=== PATIENT | male | born 1945 | race Two or more races ===

== ENCOUNTER 2020-02-04 13:45 | Outpatient (REF) | payer MEDICARE, SELFPAY ==
--- NOTE | 2020-02-04 13:51 | MR_ITS ---
EXAMINATION: MR LUMBAR SPINE WITHOUT CONTRAST CLINICAL INFORMATION: Low back pain. Pain in the right leg. Anesthesia of the skin. COMPARISON: Lumbar spine radiographs from 12/09/2019. CT abdomen and pelvis from 04/01/2018. TECHNIQUE: MRI of the lumbar spine was obtained using routine sequences without contrast. FINDINGS: Normal anatomic alignment. Moderate degenerative disc disease at T11-T12 with disc desiccation and loss of height. Mild degenerative disc disease from L3-S1 with disc desiccation. There is a small Schmorl's node in the superior endplate of L5 with surrounding marrow edema. There is also mild multilevel Modic type II discogenic endplate change. No suspicious marrow edema. Mild degenerative loss of L5 vertebral body height. Otherwise, the vertebral body heights are largely maintained. The conus medullaris terminates at the level of L1-L2. The distal spinal cord is normal in appearance. No significant abnormalities of the paraspinal musculature. Multiple right-sided peripelvic renal cysts. Otherwise, limited evaluation of the intra-abdominal structures without significant abnormalities. The abdominal aorta is of normal contour and caliber. AXIAL SPINAL LEVELS: L1-L2: Normal annular contour. There is mild bilateral facet joint arthropathy. There is no neural foraminal stenosis. There is no spinal canal stenosis. L2-L3: Normal annular contour. There is moderate bilateral facet joint arthropathy. There is no neural foraminal stenosis. There is no spinal canal stenosis. L3-L4: Mild diffuse disc bulge. There is moderate bilateral facet joint arthropathy. There is mild bilateral neural foraminal stenosis. There is no spinal canal stenosis. L4-L5: Moderate diffuse disc bulge with superimposed shallow right subarticular/foraminal protrusion. There is moderate bilateral facet joint arthropathy. There is mild to moderate bilateral neural foraminal stenosis. There is no spinal canal stenosis. L5-S1: Mild diffuse disc bulge. Mildly prominent right lateral osteophyte complex abutting the exiting L5 nerve root. There is moderate bilateral facet joint arthropathy. There is moderate right and mild left neural foraminal stenosis. There is no spinal canal stenosis. 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 Most notably, there are mild to moderate neural foraminal stenoses from L3-S1 (worst on the right at L5-S1). A right lateral osteophyte complex at L5-S1 also abuts the exiting L5 nerve root. No overt spinal canal stenosis. There is a small Schmorl's node in the superior endplate of L5 with mild surrounding marrow edema.
== END 2020-02-04 13:46 | disposition home or self-care (01) ==
LOC: HO.MRI 13:45
PROVIDERS: PCP Internal Medicine Geriatric Medicine; Visit Provider Internal Medicine Geriatric Medicine
DX: M79.604 Pain in right leg (principal); M54.5 Low back pain; R20.0 Anesthesia of skin
CPT/HCPCS: 72148

== ENCOUNTER 2020-02-08 16:47 | Outpatient (REF) | payer MEDICARE, SELFPAY ==
--- NOTE | 2020-02-08 | XR_ITS ---
EXAMINATION: XR LUMBOSACRAL SPINE WITH OBLIQUES CLINICAL INFORMATION: Low back pain COMPARISON: MRI 02/04/2020. Radiographs 12/09/2019. CT 04/01/2018. TECHNIQUE: AP, both oblique, and lateral views of the lumbar spine. Lateral view of the lumbosacral junction. FINDINGS: Normal alignment and lumbar lordosis. No fracture. Mild degenerative disc disease with small anterior endplate osteophytes as demonstrated on the MRI. Bilateral facet arthrosis at L3-L4 through L5-S1. Redemonstration of a bone island in the right sacral ala. No change. IMPRESSION: Mild multilevel degenerative disc disease and mild to moderate facet arthropathy. No acute abnormality. No change.
== END 2020-02-08 16:48 | disposition home or self-care (01) ==
LOC: HO.XRAY 16:47
PROVIDERS: PCP Internal Medicine Geriatric Medicine; Visit Provider Internal Medicine Geriatric Medicine
DX: M54.5 Low back pain (principal)
CPT/HCPCS: 72110

== ENCOUNTER → 2020-02-23 12:52 | Outpatient (REF) | payer MEDICARE, SELFPAY ==
--- NOTE | 2020-02-23 12:56 | CA_ITS ---
Transthoracic Echocardiogram Patient (Last, First, Middle): Yovani Leo, Gender: Male Date of : 1945 Age: 75 Procedure Date: 02/23/2020 Procedure Type: Transthoracic Echocardiogram Location: OP Height: 182.88 cm Weight: 92.08 kg BSA: 2.14 m2 Heart Rate: bpm BP: 118 / 62 mmHg Casino Cashier: AMILCAR Referring MD: Pamela Ramsay SUSTAINABLE LANDSCAPE ARCHITECT-[place]ney Symptoms: tacy,pvcs Conclusions: - Normal left ventricular size, thickness, and systolic function. The visually estimated ejection fraction is between 55-60%. - E/E prime ratio is between 8 and 15 consistent with indeterminate filling pressures. - Normal right ventricular cavity size and systolic function. - The left atrium is moderately dilated. - Interatrial shunt cannot be excluded by color Doppler. - No significant valvular or pericardial pathology. Findings Left Ventricle Normal left ventricular size, thickness, and systolic function. The visually estimated ejection fraction is between 55-60%. There is no evidence of regional wall motion abnormalities. Abnormal diastolic function is noted. Spectral Doppler is indicative of a pseudonormal filling pattern. E/E prime ratio is between 8 and 15 consistent with indeterminate filling pressures. Right Ventricle Normal right ventricular cavity size and systolic function. Atria The left atrium is moderately dilated. Interatrial shunt cannot be excluded by color Doppler. The right atrium is normal in size. Aortic Valve Normal aortic valve structure and function. There is no aortic valve stenosis. There is no aortic valve regurgitation. Mitral Valve Normal mitral valve structure and function. There is no mitral valve regurgitation. There is no mitral valve stenosis. Pulmonic Valve Normal pulmonic valve structure and function. There is trace pulmonic valve regurgitation. Tricuspid Valve Normal tricuspid valve structure and function. There is trace tricuspid valve regurgitation. Normal right atrial pressure. There is no evidence of pulmonary hypertension. Great Vessels There is mild dilatation of the ascending aorta. The visualized portions of the pulmonary artery and branches are normal. Venous The inferior vena cava is normal in size and collapses greater than 50% with inspiration. Pericardium/Pleural There is no evidence of pericardial effusion. Prior Study Comparison Changes noted compared to prior study. LA moderately dilated, grade 1 diastolic dysfunction present. mild dilation of ascending aorta. Measurements 2D Linear Measurements RVIDd: 2.99 RVIDd Index: 1.40 IVSd: 0.99 0.6-0.9/0.6-1.0 cm LVIDd: 5.00 3.9-5.3/4.2-5.9 cm LVIDd Index: 2.34 2.4-3.2/2.2-3.1 cm/m2 LVIDs: 3.27 2.0-3.6 cm LVPWd: 1.02 0.7-1.1 cm Ao Root: 3.30 2.1-3.5 cm LA Diam: 4.50 2.7-3.8/3.0-4.0 cm LAIDs Index: 2.10 1.5-2.3 cm/m2 LV Mass: 228.56 67-162/88-224 g LV Mass Index: 106.80 43-95/49-115 g/m2 LVOT Diam: 2.10 3.0+(-)1.3 cm 2D Systolic Function EF 4C: 65.40 >55% EF 2C: 57.80 >55% EF BiP: 63.30 >55% Mitral Valve MV Pk E: 0.64 MV PK A: 0.46 MV Decel Time: 278.00 E/A: 1.40 E'Lateral: 7.45 E'Medial: 5.71 E/E' Med: 11.10 E/E' Lat: 8.50 Aortic Valve AoV Pk Eduardo: 1.04 AoV Mn Eduardo: 0.85 AoV VTI: 0.21 AoV Pk Grad: 4.00 Aov Mn Grad: 3.00 CARMEN Cont.VTI: 3.31 LVOT LVOT Pk Eduardo: 1.13 LVOT Mn Eduardo: 0.71 LVOT VTI: 0.20 LVOT Pk Grad: 5.00 LVOT Mn Grad: 2.00 LVOT Diam: 2.10 LVOT Area: 3.46 Diastolic Function MV Pk E: 0.64 MV Pk A: 0.46 E/A: 1.40 E'Medial: 5.71 E/E' Med: 11.10 E' Laterial: 7.45 E/E' Lat: 8.50 Tricuspid Valve TR Pk Eduardo: 2.22 TR Pk Grad: 20.00 RA Press: 3.00 RVSP: 23.00 Great Vessels Aorta Ao Root-2D: 3.30 2.0-3.7 cm Ao Asc: 3.60 2.1-3.4 cm Ao Arch: 3.00 Updated in Other Vendor System with Status of Final Rohan Proctor MD electronically signed on 02/23/2020 8:10:40 PM with status of Final
== END ==
LOC: HO.CARD 12:52
PROVIDERS: PCP Internal Medicine Geriatric Medicine; Visit Provider Nurse Practitioner Family
DX: I47.1 Supraventricular tachycardia (principal); I49.3 Ventricular premature depolarization
CPT/HCPCS: 93306

== ENCOUNTER → 2020-04-24 11:26 | Outpatient (BNVA) | payer MEDICARE, SELFPAY | PROVIDERS: PCP Internal Medicine Geriatric Medicine; Visit Provider Nurse Practitioner Family | DX: R00.2 Palpitations (principal); R07.89 Other chest pain; I47.1 Supraventricular tachycardia; I49.3 Ventricular premature depolarization | CPT/HCPCS: 99212 ==

== ENCOUNTER → 2020-05-04 07:51 | Outpatient (REF) | payer MEDICARE, SELFPAY ==
--- NOTE | 2020-05-04 | NM_ITS ---
Myocardial perfusion study Indication: Supraventricular tachycardia to assess for myocardial ischemia] Technique: The patient was brought in for a Lexiscan perfusion study on 05/04/2020. Patient performed low-level exercise and was injected 0.4 mg of Lexiscan intravenously. Within a minute of injection, 30 mCi of sestamibi was given intravenously. Images were obtained using the SPECT gamma camera interlaced with the gating device. Images were obtained in supine position. Resting perfusion study was performed on 05/12/2020. Patient was administered 30 mCi of sestamibi intravenously at rest. Images were then obtained in supine position. Images obtained with and without CT attenuation. Total DLP 64 mGy-cm. Images were processed with the software and compared side to side in short axis, horizontal long axis and vertical long axis views. Findings: The stress perfusion study showed non attenuated images show normal uptake of radiotracer in all segments of LV myocardium. Attenuation corrected images show mildly reduced uptake in the apex of the LV myocardium.. The gated study shows normal LV systolic function with calculated LVEF of 69%. LV cavity is normal in size. The gated study shows normal systolic wall thickening and contraction of segments. Resting study shows non attenuated images show minimally reduced uptake in the inferior wall of the LV myocardium. Attenuation corrected images show mildly to moderately reduced uptake in the apex of the LV myocardium. Gating at rest reveals normal systolic wall motion with ejection fraction at 71%. The findings are consistent with normal myocardial perfusion. NM/NM sergio perf SPECT rest & str Impression: 1. Myocardial perfusion imaging study shows normal myocardial perfusion 2. Gated LVEF is 69% 3. Transient ischemic dilatation not present EKG is nondiagnostic for ischemia
--- NOTE | 2020-05-04 07:55 | CA_ITS ---
Acquisition Time: 2020-05-04 08:04:02 Total Exercise Time: 00:02:00 Test Indications: Dyspnea Medications: METOPROLOL OMEPRAZOLE TRAMADOL MABUTONE Protocol: LEXISCAN Max HR: 093 BPM 64% of Pred: 144 BPM Max BP: 152/090 mmHG Max Work Load: 1.0 METS Pharmacological stress test using Lexiscan while sitting and kicking his legs. Pt tolerated well, denies any anginal sx. EKG without arrhythmias, non-diagnostic for ischemia. Nuclear images to follow. Normotensive response to test. Test reviewed with Dr. Walker Referred By: Pamela Ramsay Overread By: Archie Gutierrez
== END ==
LOC: HO.CARD 07:51
PROVIDERS: PCP Internal Medicine Geriatric Medicine; Visit Provider Nurse Practitioner Family
DX: R07.89 Other chest pain (principal); I47.1 Supraventricular tachycardia
CPT/HCPCS: 78452; 93017; A9500; J0280; J2785

== ENCOUNTER → 2020-05-16 11:43 | Outpatient (BNVA) | payer MEDICARE, SELFPAY | PROVIDERS: PCP Internal Medicine Geriatric Medicine; Visit Provider Nurse Practitioner Family | DX: I47.1 Supraventricular tachycardia (principal); I49.3 Ventricular premature depolarization; R00.2 Palpitations; R07.89 Other chest pain | CPT/HCPCS: Q3014 ==

== ENCOUNTER 2020-06-21 09:09 | Outpatient (REF) | payer MEDICARE, OTHER, SELFPAY ==
--- NOTE | ~2020-06-21 | CT_ITS ---
EXAMINATION: CT ABDOMEN AND PELVIS WITHOUT CONTRAST CLINICAL INFORMATION: Dysuria and hematuria COMPARISON: Previous CT of the abdomen and pelvis March 2018 TECHNIQUE: Multidetector volumetric imaging was performed from the superior aspect of the liver through the pubic symphysis. Sagittal and coronal reformatted images were obtained on the technologist's workstation. This CT examination was performed using dose optimization techniques as appropriate, variously including the following: *Automated exposure control *Adjustment of mA and/or kV according to patient size (this includes techniques or standardized protocols for targeted exams where dose is matched to indication/reason for exam; i.e. extremities or head) *Use of iterative reconstruction technique DLP: 506 mGy-cm FINDINGS: LUNG BASES: There is a 2 mm left lower lobe nodule axial image 37 series 6. This is stable from previous exams. LIVER, GALLBLADDER, AND BILIARY TREE: The liver is normal in size, shape, and attenuation. No focal hepatic lesion or biliary ductal dilatation is present. There are gallstones in the gallbladder. PANCREAS: Unremarkable. SPLEEN: Unremarkable. ADRENAL GLANDS: Unremarkable. KIDNEYS AND URETERS: There is a 3.4 cm cyst exophytic to the upper pole of the right kidney. There is a 1 x 2 cm peripelvic cyst in the lower pole of the right kidney. This appears unchanged from previous CT March 2018. No definite stone is seen. BLADDER: There may be mild diffuse bladder wall thickening. No mass or stone is appreciated. The prostate gland is enlarged and protrudes into the base of the bladder. GASTROINTESTINAL TRACT: There is stool throughout the colon. There is mild diverticulosis of the colon. No evidence of diverticulitis is seen. The small and large bowel is unremarkable. The appendix is unremarkable. ABDOMINAL WALL: No significant hernia is appreciated. LYMPH NODES: Normal. VASCULAR: Unremarkable. PELVIC VISCERA: The prostate gland is enlarged and protrudes into the base of the bladder. Prostate gland measures 5.5 x 5.9 cm in AP and transverse dimension. OSSEOUS STRUCTURES: There are degenerative changes of the spine. There are several small sclerotic lesions in the L5 vertebral body and pelvis that are stable from old exams and probably represent bone islands. CT/CT abdomen pelvis wo con IMPRESSION: Right renal cysts. Enlarged prostate gland that protrudes into the base of the bladder. Question mild circumferential bladder wall thickening. Diverticulosis. Stool throughout the colon questionable for constipation. Gallstones.
== END 2020-06-21 09:10 | disposition home or self-care (01) ==
LOC: HO.CT 09:09
PROVIDERS: PCP Internal Medicine Geriatric Medicine; Visit Provider Nurse Practitioner Primary Care
DX: R30.0 Dysuria (principal); R31.0 Gross hematuria
CPT/HCPCS: 74176

== ENCOUNTER → 2020-07-18 14:29 | Outpatient (BNVA) | payer MEDICARE, SELFPAY | PROVIDERS: PCP Internal Medicine Geriatric Medicine; Visit Provider Urology | DX: Z13.9 Encounter for screening, unspecified (principal) | CPT/HCPCS: 81002; 99202 ==

== ENCOUNTER → 2021-01-24 10:58 | Outpatient (BNVA) | payer OTHER, SELFPAY | PROVIDERS: PCP Internal Medicine Geriatric Medicine; Referring Provider Internal Medicine Geriatric Medicine; Visit Provider Nurse Practitioner Family ==

== ENCOUNTER 2021-04-30 12:16 | Outpatient (REF) | payer OTHER, SELFPAY ==
--- NOTE | ~2021-04-30 | XR_ITS ---
EXAMINATION: XR SHOULDER, RIGHT CLINICAL INFORMATION: Pain in unspecified shoulder. Shoulder pain. COMPARISON: None TECHNIQUE: AP neutral, Grashey, axillary, transscapular radiographs of the right shoulder FINDINGS: Glenohumeral joint spacing and alignment are normal in appearance. Minimal osteophytosis of the acromioclavicular joint is noted with inferior projecting osteophytosis measuring approximately 1-2 mm. Mild sclerosis of the greater tuberosity is noted. The visualized left ribs and lung are normal in appearance. XR/XR shoulder RT min 2V IMPRESSION: *Mild focal subchondral sclerosis of the greater tuberosity which may represent reactive changes related to underlying supraspinatus component degeneration of the rotator cuff. *Minimal osteoarthritis of the acromioclavicular joint.
== END 2021-04-30 12:17 | disposition home or self-care (01) ==
LOC: HO.HOSX 12:16
PROVIDERS: Visit Provider Orthopaedic Surgery
DX: M75.41 Impingement syndrome of right shoulder (principal)
CPT/HCPCS: 20610; 73030; J1100

== ENCOUNTER → 2021-07-19 13:20 | Outpatient (BNVA) | payer OTHER, SELFPAY | PROVIDERS: PCP Internal Medicine Geriatric Medicine; Visit Provider Orthopaedic Surgery | DX: M75.41 Impingement syndrome of right shoulder (principal) | CPT/HCPCS: 20610; J1100 ==

== ENCOUNTER 2022-12-10 10:23 | Outpatient (AMB) | payer OTHER, SELFPAY ==
[2022-12-10 10:34] VITALS: BP 146/70; PULSE 53; BMI 27.5
--- NOTE | 2022-12-10 10:34 | MHC.OFFVIS ---
Intake Vital Signs 12/10/22 10:34 Height 5 ft 11 in Weight 197 lb 8.547 oz BMI 27.5 BP 146/70 H Blood Pressure Location Lt brachial Position Sitting Pulse 53 Intake Visit Reasons: Follow up abdominal pain. Intake Note: Yovani presents in office as est.patient for a f/u for abdominal pain. PT CC: pt reports having abdominal pain , GERD, diarrhea pt denies any other GI Issues Environmental Health Technologist Required: Yes Environmental Health Technologist Language: Belarusian Accompanied by: Self / Same As Patient Allergies No Known Allergies [No Known Allergies*] Allergy (Verified 12/10/22 10:34) HPI Follow up abdominal pain. HPI Details LAST VISIT: Rectal pain Patient reports occasional rectal pain when he is constipated as well as when he has diarrhea. Patient denies any melena, hematochezia, unintentional weight loss or ribbon like stools IBS (irritable bowel syndrome) Postprandial bloating, diarrhea, loose stools and occasional constipation. Will send him script for Citrucel to hopefully bulk up his stool as well as docusate sodium. Discussed with him avoiding dietary triggers, will send his stool for ova and parasite. GERD (gastroesophageal reflux disease) Patient reports symptoms of acid reflux without dyspepsia, dysphagia or odynophagia. Will send him for H pylori testing. If positive will treat empirically. If patient continues to have acid reflux will send him for upper endoscopy verbalizes understanding of instructions and is agreeable to plan of care. He was given the opportunity to ask questions all questions answered. ? Thank you for allowing me to participate in her care Plan Orders Orders H pylori Ag Stool 01/24/21 K21.9 Ova and Parasite 01/24/21 K62.89 Medications New omeprazole 20 mg PO DAILY 30 caps 2RF methylcellulose (laxative) (Citrucel) take it with full glass of water 500 mg PO DAILY 30 tabs 2RF K59.00 docusate sodium 100 mg PO BEDTIME 30 caps 3RF K59.00 TODAY'S VISIT Patient is here today for requested visit. Last seen was in 2020. Patient had similar symptoms then was started on omeprazole for acid reflux, however patient continues to have occasional acid reflux with dyspepsia without dysphagia or odynophagia. Patient is not taking Citrucel or Colace. He continues to have postprandial frequent bowel movements. No or diarrhea. Patient states that he feels like he is constipated and does not feel like he empties his bowels completely even though he has bowel move min after almost everything that he eats. Patient reports that he had cholecystectomy in July of 2021 at [facility]. However he has a prior history of frequent bowel movements postprandially and constipation. Patient states that he exercises and tries to eat healthy. Patient occasionally will have rice and beans, eats salads fruits and fish. Patient does not eat any greasy or fast food meals. Denies any nausea or vomiting. Denies melena, hematochezia, unintentional weight loss or ribbon like stools. Last colonoscopy was in March of 2015 benign polyp was found. Patient also had upper endoscopy at the same time. [facility] Medical History Palpitations PVC's (premature ventricular contractions) SVT (supraventricular tachycardia) Surgical History History of cholecystectomy Hx of colonoscopy Hx of endoscopy S/P ablation of ventricular arrhythmia (~2007) Family History Father CVD (cardiovascular disease) Mother No problems noted. Review of Systems Const Denies weight gain and Denies weight loss ENT Reports no additional complaints, Denies dysphagia and Denies odynophagia Card Reports no additional complaints Resp Reports no additional complaints GI Denies abdominal pain, Denies belching, Denies melena, Reports bloating, Denies change in bowel habits, Reports constipation, Denies dysphagia, Denies excessive flatus, Denies dyspepsia, Reports heartburn, Denies diarrhea, Reports loose stools, Denies nausea, Denies odynophagia and Denies vomiting Reports no additional complaints Musc Reports no additional complaints Neuro Reports no additional complaints Psych Reports no additional complaints Endo Reports no additional complaints Physical Exam Vital Signs: Last Vital Signs Pulse 53 12/10/22 10:34 BP 146/70 H 12/10/22 10:34 BMI result Body Mass Index 27.5 Const General: healthy appearing, no acute distress and well developed Nutritional Appearance: well nourished Orientation/consciousness: patient oriented x3 HEENT Head: Yes normal to inspection, Yes normocephalic and Yes atraumatic Face and sinus: Yes normal facial exam Mouth: Normal oral and palatal mucosa present Throat: Yes posterior oropharynx normal, Yes tonsils normal and Yes uvula midline Eyes General: appearance normal, both eyes and all related structures Neck Neck: Yes normal visual inspection, Yes full ROM and Yes trachea midline Thyroid: Thyroid normal Resp Effort & Inspection: normal respiratory effort, able to speak in complete sentences, no tracheal deviation and symmetric chest movement Auscultation: clear to auscultation bilaterally Cardio Rate: regular rate Heart sounds: S1 normal heart sound present and S2 normal heart sound present GI Inspection: Yes normal to inspection and No distended Palpation (GI): Soft to palpation, not firm, nontender and No hepatosplenomegaly present Auscultation: normal bowel sounds General: Yes no CVA tenderness Back/Spine/Pelvis Back: no CVA tenderness Skin General skin exam: elasticity normal, turgor normal and dry skin Neuro General: patient oriented x3 Psych Appearance: grossly normal Mental Status: mental status grossly normal Speech and movement: Normal speech and movement present Affect: normal affect Assessment & Plan Assessment & Plan (1) IBS (irritable bowel syndrome): Code(s): K58.9 - Irritable bowel syndrome without diarrhea Qualifiers: Irritable bowel syndrome type: with both diarrhea and constipation Qualified Code(s): K58.2 - Mixed irritable bowel syndrome Plan: Patient reports frequent bowel movements postprandially than being constipated. Patient also reports postprandial bloating occasionally. Discussed with patient low FODMAP diet. List of food recommended as well as list of food to avoid given to patient. (2) GERD (gastroesophageal reflux disease): Code(s): K21.9 - Gastro-esophageal reflux disease without esophagitis Qualifiers: Esophagitis presence: esophagitis presence not specified Qualified Code(s): K21.9 - Gastro-esophageal reflux disease without esophagitis Plan: Patient continues with heartburn, occasional dyspepsia. Will stop omeprazole and start him on Nexium. Discussed with patient avoiding dietary triggers and the late night snacking. Staying upright for minimum 3 hours after meals discussed with patient (3) Postprandial diarrhea: Code(s): K52.9 - Noninfective gastroenteritis and colitis, unspecified Plan: Postprandial frequent stools. History of cholecystectomy in 2021. Continue low-fat diet. Start Citrucel after breakfast with full glass of water and Senokot in the evening. Despite postprandial frequent stools patient does not feel like he empties completely. I will see him in 5 weeks, sooner on as needed basis. Patient is agreeable to this plan and verbalizes understanding of instructions. He was given the opportunity to ask questions and all questions answered. Thank you for allowing me to participate in his care Medications: New esomeprazole magnesium (Nexium) 40 mg PO DAILY 30 caps 5RF K21.9 - Gastro-esophageal reflux disease without esophagitis sennosides (Natural Senna Laxative) 8.6 mg PO BEDTIME 90 tabs 3RF constipation K59.00 - Constipation, unspecified Refilled methylcellulose (laxative) (Citrucel) take it with full glass of water 500 mg PO DAILY 30 tabs 2RF K59.00 - Constipation, unspecified Discontinued omeprazole Discontinued Reason: Doctor's Order 20 mg PO DAILY 30 caps 2RF Coding Level of Care Code Est Pt Level 3 (44796) Diagnoses IBS (irritable bowel syndrome) K58.2 Irritable bowel syndrome type: with both diarrhea and constipation GERD (gastroesophageal reflux disease) K21.9 Esophagitis presence: esophagitis presence not specified Postprandial diarrhea K52.9 Time Spent (min) 35 Comment 20 minutes spent with patient and additional 15 minutes spent reviewing his records
== END 2022-12-10 11:02 | disposition home or self-care (01) ==
PROVIDERS: PCP Internal Medicine Geriatric Medicine; Visit Provider Nurse Practitioner Family
DX: K58.2 Mixed irritable bowel syndrome (principal); K21.9 Gastro-esophageal reflux disease without esophagitis
CPT/HCPCS: 99213

== ENCOUNTER → 2022-12-10 10:23 | Outpatient (BNVA) | payer OTHER, SELFPAY | PROVIDERS: PCP Internal Medicine Geriatric Medicine; Visit Provider Nurse Practitioner Family ==

== ENCOUNTER 2023-01-14 11:53 | Outpatient (AMB) | payer OTHER, SELFPAY ==
--- NOTE | 2023-01-14 12:11 | A.OFFVIS_ITS ---
Intake Vital Signs 01/14/23 12:13 Height 5 ft 11 in Weight 196 lb 3.382 oz BMI 27.4 BP 147/73 H Blood Pressure Location Lt brachial Position Sitting Pulse 56 Intake Visit Reasons: 5 week follow rediscuss colonoscopy Intake Note: Yovani presents in the office as a follow up. CC: He states that he is not having any concerns today - he did have a terrible reaction to citrucel. Account Auditor Required: No Allergies methylcellulose [From Citrucel] Allergy (Mild, Verified 01/14/23 12:14) Anaphylaxis HPI 5 week follow rediscuss colonoscopy HPI Details LAST VISIT IBS (irritable bowel syndrome) Patient reports frequent bowel movements postprandially than being constipated. Patient also reports postprandial bloating occasionally. Discussed with patient low FODMAP diet. List of food recommended as well as list of food to avoid given to patient. GERD (gastroesophageal reflux disease) Patient continues with heartburn, occasional dyspepsia. Will stop omeprazole and start him on Nexium. Discussed with patient avoiding dietary triggers and the late night snacking. Staying upright for minimum 3 hours after meals discussed with patient Postprandial diarrhea Postprandial frequent stools. History of cholecystectomy in 2021. Continue low- fat diet. Start Citrucel after breakfast with full glass of water and Senokot in the evening. Despite postprandial frequent stools patient does not feel like he empties completely. I will see him in 5 weeks, sooner on as needed basis. Patient is agreeable to this plan and verbalizes understanding of instructions. He was given the opportunity to ask questions and all questions answered. TODAY'S VISIT Patient is here today for follow-up and to discuss going for colonoscopy. Patient reports to be feeling better. Try taking Citrucel, however stopped as he reports that it was not agreeing with him. Patient became short of breath for hours after taking it. Patient is taking Nexium and reports that his epigastric discomfort and abdominal pain is better. Patient is moving his bowels well. No longer has diarrhea. Occasional dyspepsia depending on what he eats. Patient denies issues with anesthesia in the past. No history of sleep apnea. Not on any anticoagulation medication. Denies any cardiac or respiratory symptoms. Patient sees freight service inspector and will get clearance prior to going for procedure. Patient had surgery in 2021 and was under anesthesia and did well. ? PFSH Medical History Palpitations SVT (supraventricular tachycardia) PVC's (premature ventricular contractions) Surgical History History of cholecystectomy Hx of endoscopy Hx of colonoscopy S/P ablation of ventricular arrhythmia (~2007) Family History Father CVD (cardiovascular disease) Mother No problems noted. Review of Systems Const Denies weight gain and Denies weight loss ENT Reports no additional complaints, Denies dysphagia and Denies odynophagia Card Reports no additional complaints Resp Reports no additional complaints GI Denies abdominal pain, Denies belching, Denies melena, Denies bloating, Denies change in bowel habits, Denies dysphagia, Denies excessive flatus, Denies dyspepsia, Denies heartburn, Denies diarrhea, Denies loose stools, Denies nausea, Denies odynophagia and Denies vomiting Reports no additional complaints Musc Reports no additional complaints Neuro Reports no additional complaints Psych Reports no additional complaints Endo Reports no additional complaints Physical Exam Vital Signs: Last Vital Signs Pulse 56 01/14/23 12:13 BP 147/73 H 01/14/23 12:13 BMI result Body Mass Index 27.4 Const General: healthy appearing, no acute distress and well developed Nutritional Appearance: well nourished Orientation/consciousness: patient oriented x3 HEENT Head: Yes normal to inspection, Yes normocephalic and Yes atraumatic Face and sinus: Yes normal facial exam Mouth: Normal oral and palatal mucosa present Throat: Yes posterior oropharynx normal, Yes tonsils normal and Yes uvula midline Eyes General: appearance normal, both eyes and all related structures Neck Neck: Yes normal visual inspection, Yes full ROM and Yes trachea midline Thyroid: Thyroid normal Resp Effort & Inspection: normal respiratory effort, able to speak in complete sentences, no tracheal deviation and symmetric chest movement Auscultation: clear to auscultation bilaterally Cardio Rate: regular rate Heart sounds: S1 normal heart sound present and S2 normal heart sound present GI Inspection: Yes normal to inspection and No distended Palpation (GI): Soft to palpation, not firm, nontender and No hepatosplenomegaly present Auscultation: normal bowel sounds General: Yes no CVA tenderness Back/Spine/Pelvis Back: no CVA tenderness Skin General skin exam: elasticity normal, turgor normal and dry skin Neuro General: patient oriented x3 Psych Appearance: grossly normal Mental Status: mental status grossly normal Speech and movement: Normal speech and movement present Affect: normal affect Attitude: cooperative Thought process: Normal thought process present Thought content: Normal thought content present Insight: Good insight present (Psych) Judgement: Good judgement present (Psych) Assessment & Plan Assessment & Plan (1) IBS (irritable bowel syndrome): Code(s): K58.9 - Irritable bowel syndrome without diarrhea Qualifiers: Irritable bowel syndrome type: with both diarrhea and constipation Qualified Code(s): K58.2 - Mixed irritable bowel syndrome Plan: Continue low FODMAP diet. (2) GERD (gastroesophageal reflux disease): Code(s): K21.9 - Gastro-esophageal reflux disease without esophagitis Qualifiers: Esophagitis presence: esophagitis presence not specified Qualified Code(s): K21.9 - Gastro-esophageal reflux disease without esophagitis Plan: Continue Nexium. Patient will be sent for upper endoscopy to rule out gastritis, esophagitis, duodenitis, gastric or peptic ulcers, H pylori, Pace's (3) Postprandial diarrhea: Code(s): K52.9 - Noninfective gastroenteritis and colitis, unspecified Plan: Patient reports that his diarrhea subsided after he started taking esomeprazole. (4) Screen for colon cancer: Code(s): Z12.11 - Encounter for screening for malignant neoplasm of colon Plan: Please call freight service inspector for clearance. Patient goes to Dr. Abel. Patient denies any issues with anesthesia in the past. Not on any anticoagulation medication. No history of sleep apnea. Patient denies any chest pain or shortness of breath. What to expect before during and after procedure discussed with patient. Clear liquid diet in good bowel prep discussed with patient. I will see him after the procedure, sooner on as needed basis. Patient is agreeable to this plan and verbalizes understanding of instructions. He was given the opportunity to ask questions and all questions answered. Thank you for allowing me to participate in his care Medications: New polyethylene glycol 3350 (Miralax) As directed by gastroenterology department at [facility] 238 grams PO ONCE 238 grams 0RF Z12.11 - Encounter for screening for malignant neoplasm of colon bisacodyl (Dulcolax (bisacodyl)) take 2 tabs at noon the day before your colonoscopy 10 mg (2 x 5 mg) PO ONCE 1 day 2 tabs 0RF Z12.11 - Encounter for screening for malignant neoplasm of colon Coding Level of Care Code Est Pt Level 4 (99993) Diagnoses Irritable bowel syndrome with both constipation and diarrhea K58.2 Irritable bowel syndrome type: with both diarrhea and constipation Gastroesophageal reflux disease, unspecified whether esophagitis present K21.9 Esophagitis presence: esophagitis presence not specified Postprandial diarrhea K52.9 Screen for colon cancer Z12.11 Time Spent (min) 35 Comment 20 minutes spent with patient and additional 15 minutes spent reviewing her records
[2023-01-14 12:13] VITALS: BP 147/73; PULSE 56; BMI 27.4
== END 2023-01-14 12:53 | disposition home or self-care (01) ==
PROVIDERS: PCP Internal Medicine Geriatric Medicine; Visit Provider Nurse Practitioner Family
DX: K58.2 Mixed irritable bowel syndrome (principal); K21.9 Gastro-esophageal reflux disease without esophagitis; Z12.11 Encounter for screening for malignant neoplasm of colon
CPT/HCPCS: 99214

== ENCOUNTER → 2023-01-14 11:53 | Outpatient (BNVA) | payer OTHER, SELFPAY | PROVIDERS: PCP Internal Medicine Geriatric Medicine; Visit Provider Nurse Practitioner Family ==

== ENCOUNTER 2023-02-10 10:34 | Outpatient (REF) | payer OTHER, SELFPAY ==
[2023-02-14 02:24] LABS: Testosterone, Total 629 ng/dL (250-1100)
== END 2023-02-10 10:35 | disposition home or self-care (01) ==
LOC: HO.LAB 10:34
PROVIDERS: PCP Internal Medicine Geriatric Medicine; Visit Provider Internal Medicine Geriatric Medicine
DX: N52.9 Male erectile dysfunction, unspecified (principal)
CPT/HCPCS: 36415; 84403

== ENCOUNTER 2023-04-15 09:22 | Day surgery (SDC) | payer OTHER, SELFPAY ==
--- NOTE | 2023-04-14 10:07 | P.CONAN_ITS ---
Documented by User: Lynette Singh NP 04/14/23 10:08 HPI - Anesthesia Eval Consult details Narrative: 78yo M for Upper Endoscopy and Colonoscopy Cardiac optimized PMFSH Active Problems Active Problems: All Active Problems (Updated 07/18/21 @ 07:57 by Peter Velásquez MD) Microscopic hematuria (Acute) Impingement syndrome of right shoulder (Acute) Palpitations (Acute) Chest tightness (Acute) SVT (supraventricular tachycardia) (Acute) PVC's (premature ventricular contractions) (Acute) Past Medical History Medical History Palpitations SVT (supraventricular tachycardia) PVC's (premature ventricular contractions) Family History Family History Father CVD (cardiovascular disease) Mother No problems noted. Surgical History Surgical History History of cholecystectomy Hx of endoscopy Hx of colonoscopy S/P ablation of ventricular arrhythmia (~2007) Social History Social History Patient Tobacco Use Status: Never used Tobacco Use of substances other than those prescribed or required for medical reasons: No Are you DNR?: No Advance Directives: No Advance Directives Information Provided: Yes Meds Allergies Allergy/AdvReac Type Severity Reaction Status Date / Time methylcellulose Allergy Mild Anaphylaxis Verified 04/15/23 09:38 [From Citrucel] Home Medications Medication Instructions Recorded Confirmed Last Taken Type nabumetone 750 mg tablet 750 mg PO BID 04/24/20 04/15/23 Unknown History tadalafil 20 mg tablet 20 mg PO DAILY PRN Erectile 04/24/20 04/15/23 Unknown History Dysfunction tramadol 50 mg tablet 50 mg PO Q12H PRN Pain 04/24/20 04/15/23 Unknown History cholecalciferol (vitamin D3) 50 50 mcg PO DAILY 01/14/23 04/15/23 Unknown History mcg (2,000 unit) tablet Assessment and Plan Assessment Anesthesia Assessment: Chart Reviewed Documented by User: Heather Mendoza MD 04/15/23 09:56 [facility] [place] Past Medical History Medical History Palpitations SVT (supraventricular tachycardia) PVC's (premature ventricular contractions) Family History Family History Father CVD (cardiovascular disease) Mother No problems noted. Family history of problems with anesthesia: No Surgical History Surgical History History of cholecystectomy Hx of endoscopy Hx of colonoscopy S/P ablation of ventricular arrhythmia (~2007) History of Problems with Anesthesia: No Social History Social History Patient Tobacco Use Status: Never used Tobacco Use of substances other than those prescribed or required for medical reasons: No Are you DNR?: No Advance Directives: No Advance Directives Information Provided: Yes Meds Allergies Allergy/AdvReac Type Severity Reaction Status Date / Time methylcellulose Allergy Mild Anaphylaxis Verified 04/15/23 09:38 [From Citrucel] Home Medications Medication Instructions Recorded Confirmed Last Taken Type nabumetone 750 mg tablet 750 mg PO BID 04/24/20 04/15/23 Unknown History tadalafil 20 mg tablet 20 mg PO DAILY PRN Erectile 04/24/20 04/15/23 Unknown History Dysfunction tramadol 50 mg tablet 50 mg PO Q12H PRN Pain 04/24/20 04/15/23 Unknown History cholecalciferol (vitamin D3) 50 50 mcg PO DAILY 01/14/23 04/15/23 Unknown History mcg (2,000 unit) tablet Exam Airway Mallampati Class: II TM Dist: >3cm Neck ROM: Full Heart: rrr Lungs: cta Assessment and Plan Assessment Anesthesia Assessment: Anesthesia Plan Discussed and Chart Reviewed Final Anesthetic Review Family History of Problems with Anesthesia: No History of Problems with Anesthesia: No NPO: Yes ASA Class: II Final Preanesthetic Review: No Changes in Pt Med Stat, Meds/Allgs Chart Reviewed, Consent Obtained/Reviewed and Anes Risks/Benef Reviewed Patient Risk: Low Procedure Risk: Intermediate Anesthetic Plan Anesthetic Plan: MAC: Disposition: Standard PACU
[2023-04-15 09:39] VITALS: BMI 28.0
--- NOTE | 2023-04-15 09:53 | MHC.SHP ---
Pre-Procedural Eval Section A Date of Service: 04/15/23 Section B Chief Complaint: IBS,gerd,gastroenteritis and colitis Relevant Family History (Specify if Yes): No Relevant Social History: None Present Medications: see Short Stay Collaborative assessment Medical History: Significant History (Fatty liver Palpitations SVT (supraventricular tachycardia) PVC's (premature ventricular contractions)) History of Previous Operations: Relevant previous surgery/procedure and date(s) ( History of cholecystectomy Hx of endoscopy Hx of colonoscopy S/P ablation of ventricular arrhythmia (~2007)) Allergies: Allergies Allergy/AdvReac Type Severity Reaction Status Date / Time methylcellulose Allergy Mild Anaphylaxis Verified 04/15/23 09:38 [From Citrucel] Review of Systems Sugical H&P ROS: Negative: Constitution, Cardiovascular, Respiratory, Neurological, Psychiatric, Hem-Onc, Allergic/Immunologic, Gastrointestinal, Genitourinary, Musculoskeletal, Integumentary, Endocrine and Eyes/Ears/Nose/Throat Exam Surgical H&P Exam: Normal: HEENT, Normal: Heart, Normal: Lungs, Normal: Extremities, Normal: Abdomen, Normal: Skin and Normal: Neurological Plan Diagnosis/Plan: Unchanged I have reviewed the history and physical and performed a pertinent physical examination on my patient. No changes have occurred unless specified. Time Spent With Patient Time: Total time managing care of this patient today ____ minutes.
[2023-04-15 09:55] VITALS: BP 153/91; PULSE 72; RESP 15; TEMP 36.6; O2SAT 98
[2023-04-15] MEDS: Lactated Ringers 1,000 ML 100 ML IVCONT (10:09)
--- NOTE | 2023-04-15 10:37 | P.OP_ITS ---
Operative Note Operative Note Date of Service: 04/15/23 Narrative: Operative Information Procedure Description: EGD, Colonoscopy Indication: GERD, colon screen Anesthesia: MAC FLEXIBLE TRANSORAL UPPER GASTROINTESTINAL ENDOSCOPY AND COLONOSCOPY PROCEDURE NOTE UPPER ENDOSCOPY Consent: Indications for the procedure and potential complications of bleeding, perforation, reaction to medications and missed diagnosis were discussed with the patient and informed consent was obtained. Instrument: Olympus GIF H 190 J mid size upper endoscope Monitoring: Vital signs and clinical assessment, continuous EKG monitoring, Pulse oximetry, Carbon Dioxide monitoring and blood pressure monitoring were done throughout the procedure. Procedure: The patient was placed in the left lateral decubitis position and pre-procedure medications were administered and a bite block was placed. The endoscope was inserted into the mouth and advanced under direct vision to the third part of duodenum. A careful inspection was made as the upper endoscope was withdrawn including a retroflexed examination of the proximal stomach; Findings and interventions are described below. Findings: Larynx:normal Esophagus: GE junction at 38 cm, diaphragm hiatus at 38 cm, erythema at GEJ, bx taken from here, distal and proximal esophagus in separate jars Stomach: Patchy erythema. Biopsies were obtained. Grade 2 flap valve on retroflexed examination of the cardia. Duodenum: Normal bulb and descending duodenum, Intervention: Biopsies as noted above COLONOSCOPY Instrument: Olympus variable stiffness ADULT scope 190L Colonoscopy Monitoring: Vital signs and clinical assessment, continuous EKG monitoring, Pulse oximetry, Carbon Dioxide monitoring and blood pressure monitoring were done throughout the procedure. Colon withdrawal time was 8 minutes. Procedure: The patient was placed in the left lateral decubitis position and pre-procedure medications were administered. After a digital rectal examination of the ano-rectum, the video colonoscope was inserted into the rectum and advanced through the colon to the cecum/TI. The colonoscope was slowly withdrawn in a retrograde panoramic fashion and the colon mucosa was carefully examined including a retroflexed view of the rectum. Findings and interventions are described below. Procedure Difficulty:moderate Findings: Terminal Ileum-not intubated Cecum:normal Ascending Colon: moderate diverticulosis Transverse Colon -normal Descending Colon: moderate diverticulosis Sigmoid Colon: severe diverticulosis Rectum: Retroflexion with small internal hemorrhoids, grade I Anorectum - normal Colon preparation: [place] Bowel Preparation Scale Right colon; 1-2 Transverse colon: 2 Left colon; 2 (0 = Unprepared colon segment with mucosa not seen due to solid stool that cannot be cleared. 1 = Portion of mucosa of the colon segment seen, but other areas of the colon segment not well seen due to staining, residual stool and/or opaque liquid. 2 = Minor amount of residual staining, small fragments of stool and/or opaque liquid, but mucosa of colon segment seen well. 3 = Entire mucosa of colon segment seen well with no residual staining, small fragments of stool or opaque liquid) Impression and Post Procedure Diagnosis: Endoscopy Findings: gastritis mild esophagitis Colonoscopy Findings: internal hemorrhoids diverticular disease Plan: Await Pathology results Repeat Colonoscopy in 5 years due to fair prep on the right or earlier if clinically indicated High fiber diet leaflet avoid straining at stool, epsom salts and sitz bath, anusol supps or cream if H pylori pos then treat Above findings were reviewed with the patient and relevant handouts were provided if indicated.
[2023-04-15 11:38] VITALS: BP 105/63; PULSE 74; RESP 16; TEMP 36.5; O2SAT 97
[2023-04-15 11:53] VITALS: BP 116/64; PULSE 56; RESP 16; TEMP 36.5; O2SAT 100
== END 2023-04-15 12:43 | disposition home or self-care (01) ==
PROVIDERS: PCP Internal Medicine Geriatric Medicine; Visit Provider Internal Medicine Gastroenterology
PROC: (CPT 43239; principal; 2023-04-15 11:50)
DX: K29.60 Other gastritis without bleeding (principal); K21.9 Gastro-esophageal reflux disease without esophagitis; Z12.11 Encounter for screening for malignant neoplasm of colon; K57.30 Diverticulosis of large intestine without perforation or abscess without bleeding; K64.0 First degree hemorrhoids; K58.2 Mixed irritable bowel syndrome; Z90.49 Acquired absence of other specified parts of digestive tract
CPT/HCPCS: 43239; G0121; 88305; 88342; J2704

== ENCOUNTER → 2023-04-15 09:22 | Outpatient (BNV) | payer OTHER, SELFPAY | PROVIDERS: PCP Internal Medicine Geriatric Medicine; Visit Provider Internal Medicine Gastroenterology | DX: Z12.11 Encounter for screening for malignant neoplasm of colon (principal); K57.90 Diverticulosis of intestine, part unspecified, without perforation or abscess without bleeding; K64.0 First degree hemorrhoids; K21.00 Gastro-esophageal reflux disease with esophagitis, without bleeding; K29.70 Gastritis, unspecified, without bleeding | CPT/HCPCS: 43239; G0121 ==

== ENCOUNTER 2023-05-07 13:55 | Outpatient (AMB) | payer OTHER, SELFPAY ==
--- NOTE | 2023-05-07 14:03 | MHC.OFFVIS ---
Intake Vital Signs 05/07/23 14:06 Height 5 ft 11 in Weight 205 lb 0.478 oz BMI 28.6 BP 149/77 H Blood Pressure Location Lt brachial Position Sitting Pulse 57 Intake Visit Reasons: s/P Double; Dr. Bhatia Intake Note: Yovani presents in the office as a follow up EGD and COLO. CC: He states that he does not have any appetite since the procedure - Sometimes he feels like he like he had an accident and states it feels wet down there. Vp Required: No Allergies No Known Allergies Allergy (Verified 05/07/23 14:29) HPI s/P Double; Dr. Bhatia HPI Details LAST VISIT IBS (irritable bowel syndrome) Continue low FODMAP diet. GERD (gastroesophageal reflux disease) Continue Nexium. Patient will be sent for upper endoscopy to rule out gastritis, esophagitis, duodenitis, gastric or peptic ulcers, H pylori, Pace's Postprandial diarrhea Patient reports that his diarrhea subsided after he started taking esomeprazole. Screen for colon cancer Please call open tenter operator for clearance. Patient goes to Dr. Abel. Patient denies any issues with anesthesia in the past. Not on any anticoagulation medication. No history of sleep apnea. Patient denies any chest pain or shortness of breath. What to expect before during and after procedure discussed with patient. Clear liquid diet in good bowel prep discussed with patient. I will see him after the procedure, sooner on as needed basis. Patient is agreeable to this plan and verbalizes understanding of instructions. He was given the opportunity to ask questions and all questions answered. ? Thank you for allowing me to participate in his care Plan Medications New polyethylene glycol 3350 (Miralax) As directed by gastroenterology department at [facility] 238 grams PO ONCE 238 grams 0RF Z12.11 bisacodyl (Dulcolax (bisacodyl)) take 2 tabs at noon the day before your colonoscopy 10 mg (2 x 5 mg) PO ONCE 1 day 2 tabs 0RF Z12.11 COLONOSCOPY Findings: Larynx:normal Esophagus: GE junction at 38 cm, diaphragm hiatus at 38 cm, erythema at GEJ, bx taken from here, distal and proximal esophagus in separate jars Stomach: Patchy erythema. Biopsies were obtained. Grade 2 flap valve on retroflexed examination of the cardia. Duodenum: Normal bulb and descending duodenum, Intervention: Biopsies as noted above Findings: Terminal Ileum-not intubated Cecum:normal Ascending Colon: moderate diverticulosis Transverse Colon -normal Descending Colon: moderate diverticulosis Sigmoid Colon: severe diverticulosis Rectum: Retroflexion with small internal hemorrhoids, grade I Anorectum - normal Colon preparation: [place] Bowel Preparation Scale Right colon; 1-2 Transverse colon: 2 Left colon; 2 (0 = Unprepared colon segment with mucosa not seen due to solid stool that cannot be cleared. 1 = Portion of mucosa of the colon segment seen, but other areas of the colon segment not well seen due to staining, residual stool and/or opaque liquid. 2 = Minor amount of residual staining, small fragments of stool and/or opaque liquid, but mucosa of colon segment seen well. 3 = Entire mucosa of colon segment seen well with no residual staining, small fragments of stool or opaque liquid) Impression and Post Procedure Diagnosis: Endoscopy Findings: gastritis mild esophagitis Colonoscopy Findings: internal hemorrhoids diverticular disease Plan: Await Pathology results Repeat Colonoscopy in 5 years due to fair prep on the right or earlier if clinically indicated High fiber diet leaflet avoid straining at stool, epsom salts and sitz bath, anusol supps or cream if H pylori pos then treat PATHOLOGY RESULTS: Diagnosis A. Stomach, biopsy: Oxyntic mucosa with mild chronic inactive inflammation; no Helicobacter organisms seen. B. GE junction, biopsy: - Pace esophagus with background mild chronic active inflammation. - No dysplasia seen. - Squamous mucosa within normal limits. C. Esophagus, distal, biopsy: Squamous epithelium within normal limits; no inflammation seen. D. Esophagus, proximal, biopsy: - Squamous epithelium within normal limits; no inflammation seen. - Oxyntic mucosa within normal limits. TODAY'S VISIT Patient is here today for follow-up and to discuss upper endoscopy and colonoscopy results. Patient was diagnosed with Pace's esophagus and diverticulosis. No polyps found, however due to suboptimal prep to right side of his colon patient will need to repeat colonoscopy in 5 years. Patient denies any ill effects from the prep, anesthesia or procedure itself. Patient reports that he continues to have occasional epigastric discomfort with occasional dyspepsia, without dysphagia or odynophagia. Patient denies melena, hematochezia, unintentional weight loss or ribbon like stools. Patient however reports that after having a bowel movement he feels like he does not empty completely and sometimes he feels wet after having a bowel movement. Patient denies any nausea or vomiting. Reports that he is feeling significantly better since the 1st time seen in the office. [facility] Medical History Palpitations SVT (supraventricular tachycardia) PVC's (premature ventricular contractions) Surgical History History of cholecystectomy Hx of endoscopy Hx of colonoscopy S/P ablation of ventricular arrhythmia (~2007) Family History Father CVD (cardiovascular disease) Mother No problems noted. Social History Patient Tobacco Use Status: Never used Tobacco Review of Systems Const Denies weight gain and Denies weight loss ENT Reports no additional complaints, Denies dysphagia and Denies odynophagia Card Reports no additional complaints Resp Reports no additional complaints GI Denies abdominal pain, Denies belching, Denies melena, Denies bloating, Denies change in bowel habits, Denies dysphagia, Denies excessive flatus, Denies dyspepsia, Denies heartburn, Denies diarrhea, Denies loose stools, Denies nausea, Denies odynophagia, Denies vomiting and Reports other (Occasional stool incontinence) Reports no additional complaints Musc Reports no additional complaints Neuro Reports no additional complaints Psych Reports no additional complaints Endo Reports no additional complaints Physical Exam Vital Signs: Last Vital Signs Pulse 57 05/07/23 14:06 BP 149/77 H 05/07/23 14:06 BMI result Body Mass Index 28.6 Const General: healthy appearing, no acute distress and well developed Nutritional Appearance: well nourished Orientation/consciousness: patient oriented x3 HEENT Head: Yes normal to inspection, Yes normocephalic and Yes atraumatic Face and sinus: Yes normal facial exam Mouth: Normal oral and palatal mucosa present Throat: Yes posterior oropharynx normal, Yes tonsils normal and Yes uvula midline Eyes General: appearance normal, both eyes and all related structures Neck Neck: Yes normal visual inspection, Yes full ROM and Yes trachea midline Thyroid: Thyroid normal Resp Effort & Inspection: normal respiratory effort, able to speak in complete sentences, no tracheal deviation and symmetric chest movement Auscultation: clear to auscultation bilaterally Cardio Rate: regular rate GI Inspection: Yes normal to inspection and No distended Palpation (GI): Soft to palpation, not firm, nontender and No hepatosplenomegaly present Auscultation: normal bowel sounds General: Yes no CVA tenderness Back/Spine/Pelvis Back: no CVA tenderness Skin General skin exam: elasticity normal, turgor normal and dry skin Neuro General: patient oriented x3 Psych Appearance: grossly normal Mental Status: mental status grossly normal Assessment & Plan Assessment & Plan (1) IBS (irritable bowel syndrome): Code(s): K58.9 - Irritable bowel syndrome without diarrhea Qualifiers: Irritable bowel syndrome type: with both diarrhea and constipation Qualified Code(s): K58.2 - Mixed irritable bowel syndrome (2) GERD (gastroesophageal reflux disease): Code(s): K21.9 - Gastro-esophageal reflux disease without esophagitis Qualifiers: Esophagitis presence: without esophagitis Qualified Code(s): K21.9 - Gastro-esophageal reflux disease without esophagitis (3) Postprandial diarrhea: Code(s): K52.9 - Noninfective gastroenteritis and colitis, unspecified (4) Pace's esophagus determined by biopsy: Code(s): K22.70 - Pace's esophagus without dysplasia Plan Patient reports that omeprazole is not helpful. Patient is not taking Nexium. Will start him on pantoprazole 40 mg every morning half an hour before breakfast. Discussed with patient avoiding dietary triggers and late night snacking. Staying upright for minimum 3 hours after meals discussed with patient. Patient will start taking Benefiber every morning. Patient was also encouraged to increase fluid intake and activity to promote better bowel motility. Script for Proctosol given to patient. High-fiber diet discussed with patient. List of food high in fiber given to patient. Patient will be sent in the office in 5 weeks, sooner on as needed basis. Patient is agreeable to this plan and verbalizes understanding of instructions. He was given the opportunity to ask questions and all questions answered. Thank you for allowing me to participate in his care Medications: New wheat dextrin (Benefiber Clear Sugar Free(dextrin)) mix into at least 4 oz water or juice before administering 1 packet PO DAILY 28 ea 5RF K59.01 - Slow transit constipation pantoprazole take one tablet half an hour before breakfast 40 mg PO DAILY 30 tabs 2RF K21.9 - Gastro-esophageal reflux disease without esophagitis hydrocortisone 2.5% (Proctosol HC) 1 appl ID BID-QID PRN 30 grams 2RF hemorrhoids K64.9 - Unspecified hemorrhoids Refilled sennosides (Natural Senna Laxative) 8.6 mg PO BEDTIME 90 tabs 3RF constipation K59.00 - Constipation, unspecified Coding Level of Care Code Est Pt Level 4 (85590) Diagnoses Irritable bowel syndrome with both constipation and diarrhea K58.2 Irritable bowel syndrome type: with both diarrhea and constipation Gastroesophageal reflux disease without esophagitis K21.9 Esophagitis presence: without esophagitis Postprandial diarrhea K52.9 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
[2023-05-07 14:06] VITALS: BP 149/77; PULSE 57; BMI 28.6
== END 2023-05-07 14:43 | disposition home or self-care (01) ==
PROVIDERS: PCP Internal Medicine Geriatric Medicine; Visit Provider Nurse Practitioner Family
DX: K58.2 Mixed irritable bowel syndrome (principal); K21.9 Gastro-esophageal reflux disease without esophagitis; K22.70 Barrett's esophagus without dysplasia
CPT/HCPCS: 99214

== ENCOUNTER → 2023-05-07 13:55 | Outpatient (BNVA) | payer OTHER, SELFPAY | PROVIDERS: PCP Internal Medicine Geriatric Medicine; Visit Provider Nurse Practitioner Family ==

== ENCOUNTER 2023-05-11 16:09 | Emergency (ER) | payer OTHER, SELFPAY ==
[2023-05-11 16:21] VITALS: BP 134/63; PULSE 61; RESP 16; TEMP 36.8; O2SAT 97; BMI 30.2
--- NOTE | 2023-05-11 16:26 | ED.GENADULT ---
HPI - General Adult General Chief complaint: General Medical Stated complaint: bilateral eyes itchy and reddened Time Seen by Provider: 05/11/23 16:46 Source: patient, RN notes reviewed and old records reviewed Mode of arrival: ambulatory History of Present Illness HPI narrative: 78-year-old male with a past medical history of palpitations, SVT, presenting to the ED complaining of dry cough, headache, rhinorrhea, and bilateral itchy/erythematous eyes with crusting x3 days. Also reports right-sided low back pain x 1 month without known injury/trauma or fall. Reports intermittent radiation down RLE. Denies wearing glasses or contacts, vision loss/change, nausea/vomiting, incontinence/retention, hematuria/dysuria, CP/SOB Related Data Home Medications Medication Instructions Recorded Confirmed nabumetone 750 mg tablet 750 mg PO BID 04/24/20 04/15/23 tadalafil 20 mg tablet 20 mg PO DAILY PRN Erectile 04/24/20 04/15/23 Dysfunction tramadol 50 mg tablet 50 mg PO Q12H PRN Pain 04/24/20 04/15/23 cholecalciferol (vitamin D3) 50 50 mcg PO DAILY 01/14/23 04/15/23 mcg (2,000 unit) tablet diclofenac sodium 1 % topical gel 2 g topical BID 05/07/23 multivitamin 1 tab PO DAILY 05/07/23 Previous Rx's Medication Instructions Recorded docusate sodium 100 mg capsule 100 mg PO BEDTIME #30 caps 01/24/21 metoprolol succinate 100 mg 100 mg PO DAILY #90 tabs 04/22/22 tablet,extended release 24 hr hydrocortisone 2.5 % topical cream 1 appl NE BID-QID PRN hemorrhoids 05/07/23 with perineal applicator #30 grams (Proctosol HC) pantoprazole 40 mg tablet,delayed 40 mg PO DAILY #30 tabs 05/07/23 release sennosides 8.6 mg tablet (Natural 8.6 mg PO BEDTIME constipation #90 05/07/23 Senna Laxative) tabs wheat dextrin 3 gram/3.5 gram oral 1 packet PO DAILY #28 ea 05/07/23 powder packet (Benefiber Clear Sugar Free(dextrin)) acetaminophen 500 mg tablet 500 mg PO Q6H PRN fever or pain 05/11/23 (Tylenol Extra Strength) #14 tabs erythromycin 5 mg/gram (0.5 %) eye 0.5 inch ophthalmic (eye) QID 7 05/11/23 ointment days #3.5 grams lidocaine 5 % topical patch 1 patch topical DAILY PRN pain #30 05/11/23 (Lidoderm) ea Allergies Allergy/AdvReac Type Severity Reaction Status Date / Time No Known Allergies Allergy Verified 05/07/23 14:29 Review of Systems Review of Systems: Constitutional: No Fever, No Chills, No Fatigue, No Malaise ENT/Mouth: No Ear Pain, + Nasal Congestion, No sore throat, + Rhinorrhea, No Swallowing Difficulty Eyes: + Eye Pain, + Swelling, + Redness, No Foreign Body, No Discharge, No Vision Changes Cardiovascular: No Chest Pain, No SOB, No Palpitations Respiratory: + Cough, No Dyspnea Gastrointestinal: No Nausea, No Vomiting, No Abdominal pain Genitourinary: No Dysuria, No Urinary Frequency, No Hematuria, No Urinary Incontinence/retention, No Flank Pain Musculoskeletal: + joint pain, No Myalgias, No Joint Swelling Skin: No Skin Lesions, No rash Neuro: No Weakness, No Loss of Consciousness, No Dizziness,+Headache Yes all other systems are reviewed and are negative Constitutional: Constitutional: Reports as per [facility] Past Medical History Attestation statement: The following information was validated with the patient. Source: old records reviewed Onset Date is defined in the Problem List Problems that require an onset date and time if occurred within 24 hrs of arrival to the ED Aortic Dissection and Rupture; Neurologic impairment; Cardiopulmonary Arrest; Endotracheal Intubation; Insertion or Replacement of Mechanical Circulatory Assist Device Medical History Palpitations SVT (supraventricular tachycardia) PVC's (premature ventricular contractions) Surgical History History of cholecystectomy Hx of endoscopy Hx of colonoscopy S/P ablation of ventricular arrhythmia (~2007) Family History Family History Father CVD (cardiovascular disease) Mother No problems noted. Social History Social History Patient Tobacco Use Status: Never used Tobacco Advance Directives: No Advance Directives Information Provided: No Physical Exam ED Vital Signs: Vital Signs - 24 hr 05/11/23 16:21 Temperature 98.3 F Pulse Rate 61 Respiratory Rate 16 Blood Pressure 134/63 Pulse Oximetry 97 Oxygen Delivery Method Room Air BMI result Body Mass Index 30.2 Const General: cooperative, healthy appearing, no acute distress, alert and awake Orientation/consciousness: patient oriented x3 Limitations: no limitations HENMT Head: Yes normal to inspection and Yes atraumatic Ears: hearing grossly normal bilaterally, external ears normal and TM's normal bilaterally General nose exam: Normal external nose present Face and sinus: Yes normal facial exam Mouth: Normal oral and palatal mucosa present and no drooling Throat: Yes tonsils normal, Yes uvula midline, No peritonsillar mass and Yes posterior oropharynx abnormal (mild erythema) Eyes General: appearance normal, both eyes and all related structures Conjunctivae: conjunctival abnormal bilateral conjunctival injection diffuse; without discharge and without subconjunctival hemorrhages EOM: EOMs intact bilaterally Direct Ophthalmoscopy: normal light reflex and no photophobia Neck Neck: Yes normal visual inspection and Yes no meningeal signs Resp Effort & Inspection: normal respiratory effort and no respiratory distress Auscultation: clear to auscultation bilaterally, no crackles, no rales, no rhonchi and no wheezes Cardio Rate: regular rate Heart sounds: S1 normal heart sound present and S2 normal heart sound present GI Inspection: Yes normal to inspection Palpation (GI): Soft to palpation, nontender, no guarding and not rigid General: Yes no CVA tenderness Back/Spine/Pelvis Other: No midline cervical/thoracic/lumbar spinous tenderness/step-off or deformity. + mild right lumbar MSK tenderness to palpation reproducing subjective complaint. No erythema/warmth Back: no CVA tenderness Skin Rashes: no rashes Wounds: no wounds Neuro Other: Strength intact throughout. No saddle anesthesia. Sensation intact to light touch. Neurovascular intact distally General: patient oriented x3, gait normal, tone normal, moves all extremities, no meningeal signs and no focal motor deficits Cranial nerves: Yes CN's II-XII intact bilaterally Gait exam (Neuro): Normal gait present Extrem General: Yes normal to inspection Course Course Course Narrative: RME: 78 yold male prsesents tot he ED for coughing, headache, and bilateral red itchy eyes. recentlly diagnosed with flu. Patient sttaes no eye pain. SARS ordered -1805--COVID/flu/RSV and rapid strep negative -UA unremarkable Results discussed with patient including worrisome signs and symptoms and strict return precautions, and when to return to the emergency department. They verbalized understanding and feel safe for discharge at this time. Medical Decision Making Medical Decision Making [facility] Narrative: 78-year-old male with a past medical history of palpitations, SVT, presenting to the ED complaining of dry cough, headache, rhinorrhea, and bilateral itchy/erythematous eyes with crusting x3 days. Also reports right-sided low back pain x 1 month without known injury/trauma or fall. On exam vital signs stable, NAD, nontoxic appearing, bilateral conjunctival injection noted. EOMs intact without entrapment or pain. No evidence of preseptal or septal cellulitis. + MSK back pain appreciated. No midline spinous tenderness or red flag symptoms. Concern for viral illness vs acute conjunctivitis vs MSK pain/strain or sciatica. Low suspicion for corneal abrasion/ulceration, pneumonia/ACS or PE or cauda equina/cord compression Plan: Viral testing, rapid strep, UA Please refer to course for remaining clinical decision making, interpretation of labs/imaging results, and discussions with consultants and/or family members. Differential Diagnosis Differential Diagnoses: The differential diagnosis associated with the presentation includes As above Lab Data [facility] Lab Attestation statement: I reviewed the patient's lab results. Labs: Lab Results 05/11/23 Range/Units 17:02 Urine Color Yellow Urine Appearance Clear Urine pH 5.5 (5.0-9.0) Ur Specific [place] 1.010 (1.005-1.025) Urine Protein Negative (Neg-Trace) mg/dL Urine Glucose (UA) Negative (Negative) mg/dL Urine Ketones Negative (Negative) mg/dL Urine Blood Negative (Negative) Urine Nitrite Negative (Negative) Ur Leukocyte Esterase Negative (Negative) Influenza Type A (PCR) NEGATIVE (Negative) Influenza Type B (PCR) NEGATIVE (Negative) RSV RNA Qual (PCR) NEGATIVE (Negative) SARS-CoV-2 RNA (RT-PCR) NEGATIVE (Negative) S. pyogenes GrpA JOSE DAVID Negative (Negative) External Record Review External record reviewed: Inpatient record, Office record, Outpatient record, Prior outpatient labs, Prior outpatient radiology, Primary care record and Outside ED record Tests considered The following testing was considered but not selected: As above Prescription Management I considered prescription management with: Pain Medication Discharge Plan Discharge Clinical Impression: Conjunctivitis, Back pain Patient Disposition: Home, Self-Care Instructions: Acute Low Back Pain (ED), Conjunctivitis (ED) Additional Instructions: You tested negative for COVID, flu, RSV and strep throat Please use antibiotic eye ointment as prescribed Take Tylenol and use Lidoderm patches for back pain Follow-up with her doctor If symptoms persist or worsen return to the emergency department If symptoms persist or worsen, pain becomes unbearable, you developed urinary retention or incontinence, or weakness return to the ED Prescriptions: New erythromycin 5 mg/gram (0.5 %) ointment 0.5 inch ophthalmic (eye) QID 7 Days Qty: 3.5 0RF acetaminophen [Tylenol Extra Strength] 500 mg tablet 500 mg PO Q6H PRN (Reason: fever or pain) Qty: 14 0RF lidocaine [Lidoderm] 5 % adhesive patch,medicated 1 patch topical DAILY MDD remove after 12 hours PRN (Reason: pain) Qty: 30 0RF Rx Instructions: leave on most painful area for up to 12 hrs No Action metoprolol succinate 100 mg tablet extended release 24 hr 100 mg PO DAILY Qty: 90 0RF Rx Instructions: Overdue for appt. Please call [phone] to schedule appt for 2022 so we can continue refilling future refills. tramadol 50 mg tablet 50 mg PO Q12H PRN (Reason: Pain) nabumetone 750 mg tablet 750 mg PO BID tadalafil 20 mg tablet 20 mg PO DAILY PRN (Reason: Erectile Dysfunction) docusate sodium 100 mg capsule 100 mg PO BEDTIME Qty: 30 3RF multivitamin Tablet 1 tab PO DAILY diclofenac sodium 1 % gel 2 g topical BID Benefiber Clear SF (dextrin) 3 gram/3.5 gram powder in packet 1 packet PO DAILY Qty: 28 5RF Rx Instructions: mix into at least 4 oz water or juice before administering pantoprazole 40 mg tablet,delayed release (DR/EC) 40 mg PO DAILY Qty: 30 2RF Rx Instructions: take one tablet half an hour before breakfast hydrocortisone [Proctosol HC] 2.5 % cream with perineal applicator 1 appl NE BID-QID PRN (Reason: hemorrhoids) Qty: 30 2RF sennosides [Natural Senna Laxative] 8.6 mg tablet 8.6 mg PO BEDTIME Qty: 90 3RF cholecalciferol (vitamin D3) 50 mcg (2,000 unit) tablet 50 mcg PO DAILY Referrals: Name,MD Amado [Primary Care Provider] - 3 days
== END 2023-05-11 18:52 | disposition home or self-care (01) ==
PROVIDERS: Emergency Provider Student in an Organized Health Care Education/Training Program; PCP Internal Medicine Geriatric Medicine
DX: M54.50 Low back pain, unspecified (principal); H10.9 Unspecified conjunctivitis; R05.9 Cough, unspecified; R51.9 Headache, unspecified; J34.89 Other specified disorders of nose and nasal sinuses; Z11.52 Encounter for screening for COVID-19; Z20.828 Contact with and (suspected) exposure to other viral communicable diseases
CPT/HCPCS: 0241U; 81003; 87651; 99282; 99283

== ENCOUNTER 2023-05-21 22:28 | Emergency (ER) | payer OTHER, SELFPAY ==
--- NOTE | ~2023-05-21 | XR_ITS ---
EXAMINATION: XR CHEST CLINICAL INFORMATION: Chest pain. COMPARISON: 05/24/2016. TECHNIQUE: Frontal view of the chest was obtained. FINDINGS: The cardiomediastinal silhouette is stable. A lingular calcification is again seen. Lungs are otherwise clear. There are no significant pleural effusions. The bony structures and soft tissues are unremarkable. XR/XR chest 1V IMPRESSION: No evidence for acute disease.
--- NOTE | 2023-05-21 22:29 | ECG_ITS ---
Test Reason : CHEST PAIN Blood Pressure : / mmHG Vent. Rate : 072 BPM Atrial Rate : 072 BPM P-R Int : 190 ms QRS Dur : 090 ms QT Int : 362 ms P-R-T Axes : 080 -15 045 degrees QTc Int : 396 ms Sinus rhythm with Premature atrial complexes Otherwise normal ECG When compared with ECG of 24-MAY-2016 07:56, Premature atrial complexes are now Present Referred By: Generic ED Physician Electronically Signed By:LILIANA WEBSTER
[2023-05-21 22:37] VITALS: BP 160/73; PULSE 73; RESP 18; TEMP 36.8; O2SAT 97; BMI 29.7
--- NOTE | 2023-05-21 22:41 | MHC.EDTECH ---
From triage patient was taken directly to ED21 where labs would be done.
[2023-05-21 22:56] LABS: MANUAL DIFF FLAG NO
[2023-05-21 22:57] LABS: Basophils Percent Auto 0.6 % (0-2); Eosinophils Absolute Auto 0.1 X10*3/uL (0.0-0.4); Hematocrit 42.1 % (42.0-52.0); Hemoglobin 13.9 g/dl (14.0-18.0); Imm Gran Abs Auto 0.08 X10*3/uL (0.00-0.03); Imm Gran Pct Auto 1.7 % (0.0-0.4); Lymphocytes Absolute Auto 1.5 X10*3/uL (1.2-4.9); Mean Corpuscular Hemoglobin 28.8 pg (27.0-33.0); Mean Corpuscular Volume 87.2 fL (80.0-98.0); Mean Platelet Volume 9.5 fL (9.4-12.4); Monocytes Absolute Auto 0.5 X10*3/uL (0.1-1.2); Monocytes Percent Auto 9.8 % (2-11); Neutrophils Absolute Auto 2.7 x10*3/uL (2.0-8.3); Neutrophils Percent Auto 55.9 % (45-73); Platelet Count 182 X10*3/uL (160-400); Red Blood Count 4.83 X10*6/uL (4.60-5.80); Red Cell Distribution Width 13.9 % (11.0-16.0); White Blood Count 4.8 X10*3/uL (4.8-10.8)
[2023-05-21 23:15] LABS: Anion Gap 12 (12-20); Blood Urea Nitrogen 14 mg/dL (9-16); Calcium 9.9 mg/dL (8.4-10.2); Carbon Dioxide 24 mmol/L (22-29); Chloride 105 mmol/L (96-108); Creatinine Clr Calc Pharmacy 58.7; Estimated Glomerular Filt Rate 58; Glucose Random 108 mg/dL (60-115); Sodium 137 mmol/L (135-145)
--- NOTE | 2023-05-21 23:17 | ED.CHESTPAIN ---
HPI - Chest Pain General Chief Complaint: Chest Pain Stated Complaint: chest pain Time Seen by Provider: 05/21/23 23:17 Source: patient Mode of arrival: ambulatory Limitations: no limitations History of Present Illness HPI narrative: Patient [age] years old with medical history of symptomatic PVCs, atrial tachycardia, remote RVOT ablation in 2007 on metoprolol 100 mg daily comes here for chest pain started 1500 which is localized mid sternum nonradiating with mild shortness of breath saturating 97% at room air pain comes and goes lasting for 20-30 minutes then ease off never had similar pain in the past with palpitation patient has a Holter monitor which was removed yesterday Related Data Home Medications Medication Instructions Recorded Confirmed nabumetone 750 mg tablet 750 mg PO BID 04/24/20 04/15/23 tadalafil 20 mg tablet 20 mg PO DAILY PRN Erectile 04/24/20 04/15/23 Dysfunction tramadol 50 mg tablet 50 mg PO Q12H PRN Pain 04/24/20 04/15/23 cholecalciferol (vitamin D3) 50 50 mcg PO DAILY 01/14/23 04/15/23 mcg (2,000 unit) tablet diclofenac sodium 1 % topical gel 2 g topical BID 05/07/23 multivitamin 1 tab PO DAILY 05/07/23 Previous Rx's Medication Instructions Recorded docusate sodium 100 mg capsule 100 mg PO BEDTIME #30 caps 01/24/21 metoprolol succinate 100 mg 100 mg PO DAILY #90 tabs 04/22/22 tablet,extended release 24 hr hydrocortisone 2.5 % topical cream 1 appl [place] BID-QID PRN hemorrhoids 05/07/23 with perineal applicator #30 grams (Proctosol HC) pantoprazole 40 mg tablet,delayed 40 mg PO DAILY #30 tabs 05/07/23 release sennosides 8.6 mg tablet (Natural 8.6 mg PO BEDTIME constipation #90 05/07/23 Senna Laxative) tabs wheat dextrin 3 gram/3.5 gram oral 1 packet PO DAILY #28 ea 05/07/23 powder packet (Benefiber Clear Sugar Free(dextrin)) acetaminophen 500 mg tablet 500 mg PO Q6H PRN fever or pain 05/11/23 (Tylenol Extra Strength) #14 tabs erythromycin 5 mg/gram (0.5 %) eye 0.5 inch ophthalmic (eye) QID 7 05/11/23 ointment days #3.5 grams lidocaine 5 % topical patch 1 patch topical DAILY PRN pain #30 05/11/23 (Lidoderm) ea Allergies Allergy/AdvReac Type Severity Reaction Status Date / Time No Known Allergies Allergy Verified 05/21/23 22:36 Review of Systems Review of Systems: Yes all other systems are reviewed and are negative PMFSH Past Medical History Onset Date is defined in the Problem List Problems that require an onset date and time if occurred within 24 hrs of arrival to the ED Aortic Dissection and Rupture; Neurologic impairment; Cardiopulmonary Arrest; Endotracheal Intubation; Insertion or Replacement of Mechanical Circulatory Assist Device Medical History Palpitations SVT (supraventricular tachycardia) PVC's (premature ventricular contractions) Surgical History History of cholecystectomy Hx of endoscopy Hx of colonoscopy S/P ablation of ventricular arrhythmia (~2007) Family History Family History Father CVD (cardiovascular disease) Mother No problems noted. Social History Social History Patient Tobacco Use Status: Never used Tobacco Smoked in Last 30 Days: No Advance Directives: No Advance Directives Information Provided: No Physical Exam Vital Signs: Vital Signs: Last Vital Signs Temp 97.9 F 05/21/23 23:57 Pulse 65 05/21/23 23:57 Resp 20 05/21/23 23:57 BP 128/64 05/21/23 23:57 Pulse Ox 95 05/21/23 23:57 O2 Del Method Room Air 05/21/23 23:57 BMI result Body Mass Index 29.7 Appearance: Alert. Oriented X3. No acute distress. Eyes: No pallor or icterus ENT: Pharynx normal. Oral Mucosa moist Neck: Normal inspection. Neck supple. CVS: Normal heart rate and rhythm. Pulses normal. No murmur rub or gallop local tenderness in mid sternum Respiratory: No respiratory distress. Equal air entry bilateral, no wheezing/rales/rhonchi Abdomen: Soft and nontender. Bowel sounds are present, no mass palpable, no CVA tenderness Skin: Skin warm and dry. Normal skin color. Normal skin turgor. Extremities: No lower extremity edema. No calf tenderness Neuro: Oriented X 3. No motor deficit. Medications Administered Discontinued Medications Generic Name Dose Route Start Last Admin Trade Name Tamara PRN Reason Stop Dose Admin Aspirin 162 mg 05/21/23 23:26 05/21/23 23:31 Aspirin Enteric Coated 81 Mg Tablet.Dr WRIGHT 05/21/23 23:27 162 mg ONCE ONE Administration Nitroglycerin 1 inch 05/21/23 23:26 05/21/23 23:30 Nitroglycerin 2 % Oint 1 Gm Packet TRANSDERMA 05/21/23 23:27 1 inch ONCE ONE Administration Medical Decision Making Medical Decision Making [facility] Narrative: Pain patient with no known coronary artery disease status post ablation in 2007 for PVCs, previous stress test and echo in 2019 were negative patient been having pain since 1500 today initial troponin and EKG were negative will repeat troponin in 2 hours to see any delta change patient felt better after aspirin and nitro paste patient signed out Dr. Milner will check the repeat troponin will also check D-dimer and BNP Differential Diagnosis Differential Diagnoses: The differential diagnosis associated with the presentation includes ACS/musculoskeletal pain Lab Data [facility] Lab Attestation statement: I reviewed the patient's lab results. 05/21/23 22:52 05/21/23 22:52 Labs: Lab Results 05/21/23 Range/Units 22:52 WBC 4.8 (4.8-10.8) X10*3/uL RBC 4.83 (4.60-5.80) X10*6/uL Hgb 13.9 L (14.0-18.0) g/dl Hct 42.1 (42.0-52.0) % MCV 87.2 (80.0-98.0) fL MCH 28.8 (27.0-33.0) pg MCHC 33.0 (31.0-36.0) g/dl RDW 13.9 (11.0-16.0) % Plt Count 182 (160-400) X10*3/uL MPV 9.5 (9.4-12.4) fL Immature Gran % (Auto) 1.7 H (0.0-0.4) % Neut % (Auto) 55.9 (45-73) % Lymph % (Auto) 31.0 (20-40) % Owen % (Auto) 9.8 (2-11) % Eos % (Auto) 1.0 (0-4) % Baso % (Auto) 0.6 (0-2) % Lymph # (Auto) 1.5 (1.2-4.9) X10*3/uL Owen # (Auto) 0.5 (0.1-1.2) X10*3/uL Eos # (Auto) 0.1 (0.0-0.4) X10*3/uL Baso # (Auto) 0.0 (0.0-0.2) X10*3/uL Abs Immat Gran (auto) 0.08 H (0.00-0.03) X10*3/uL Absolute Neuts (auto) 2.7 (2.0-8.3) x10*3/uL Absolute Nucleated RBC 0.000 (0.0-0.012) X10*3/uL Nucleated RBC % (auto) 0.0 (0.0-0.2) /100WBC Sodium 137 (135-145) mmol/L Potassium 4.0 (3.3-5.1) mmol/L Chloride 105 (96-108) mmol/L Carbon Dioxide 24 (22-29) mmol/L Anion Gap 12 (12-20) BUN 14 (9-16) mg/dL Creatinine 1.21 (0.5-1.4) mg/dL Estim Creat Clear Calc 58.7 Estimated GFR 58 Random Glucose 108 (60-115) mg/dL Calcium 9.9 (8.4-10.2) mg/dL Troponin I High Sens < 2.7 (<3.5-35.0) ng/L Independent Interpretation I performed an independent interpretation of an: EKG Interpretation: Sinus rhythm with PACs heart rate 72 beats per minute no acute ST wave changes no acute ischemia External Record Review External record reviewed: Inpatient record and Prior outpatient labs Discharge Plan Discharge Clinical Impression: Chest pain Patient Disposition: Still a Patient Prescriptions: No Action metoprolol succinate 100 mg tablet extended release 24 hr 100 mg PO DAILY Qty: 90 0RF Rx Instructions: Overdue for appt. Please call [phone] to schedule appt for 2022 so we can continue refilling future refills. erythromycin 5 mg/gram (0.5 %) ointment 0.5 inch ophthalmic (eye) QID 7 Days Qty: 3.5 0RF acetaminophen [Tylenol Extra Strength] 500 mg tablet 500 mg PO Q6H PRN (Reason: fever or pain) Qty: 14 0RF lidocaine [Lidoderm] 5 % adhesive patch,medicated 1 patch topical DAILY MDD remove after 12 hours PRN (Reason: pain) Qty: 30 0RF Rx Instructions: leave on most painful area for up to 12 hrs tramadol 50 mg tablet 50 mg PO Q12H PRN (Reason: Pain) nabumetone 750 mg tablet 750 mg PO BID tadalafil 20 mg tablet 20 mg PO DAILY PRN (Reason: Erectile Dysfunction) docusate sodium 100 mg capsule 100 mg PO BEDTIME Qty: 30 3RF multivitamin Tablet 1 tab PO DAILY diclofenac sodium 1 % gel 2 g topical BID Benefiber Clear SF (dextrin) 3 gram/3.5 gram powder in packet 1 packet PO DAILY Qty: 28 5RF Rx Instructions: mix into at least 4 oz water or juice before administering pantoprazole 40 mg tablet,delayed release (DR/EC) 40 mg PO DAILY Qty: 30 2RF Rx Instructions: take one tablet half an hour before breakfast hydrocortisone [Proctosol HC] 2.5 % cream with perineal applicator 1 appl [place] BID-QID PRN (Reason: hemorrhoids) Qty: 30 2RF sennosides [Natural Senna Laxative] 8.6 mg tablet 8.6 mg PO BEDTIME Qty: 90 3RF cholecalciferol (vitamin D3) 50 mcg (2,000 unit) tablet 50 mcg PO DAILY
[2023-05-21 23:30] LABS: Troponin-I High Sensitivity < 2.7 ng/L (<3.5-35.0)
[2023-05-21] MEDS: Nitroglycerin 2 % Oint 1 GM Packet 1 INCH TRANSDERMA (23:30)
[2023-05-21 23:31] VITALS: BP 133/66; PULSE 68; RESP 19; O2SAT 94
[2023-05-21] MEDS: Aspirin Enteric Coated 81 MG TABLET.DR 162 MG PO (23:31)
[2023-05-21 23:57] VITALS: BP 128/64; PULSE 65; RESP 20; TEMP 36.6; O2SAT 95
[2023-05-22 00:49] LABS: Prothrombin Time 11.8 SEC (11.1-13.3)
[2023-05-22 00:51] LABS: D Dimer High Sensitivity 299 NG/ML
[2023-05-22 00:53] LABS: B Type Natriuretic Peptide 53 pg/mL (<100)
[2023-05-22 01:26] LABS: Troponin-I High Sensitivity < 2.7 ng/L (<3.5-35.0)
[2023-05-22 01:59] VITALS: BP 95/56; PULSE 64; RESP 20; TEMP 36.5; O2SAT 95
[2023-05-22 04:14] VITALS: BP 102/57; PULSE 69; RESP 16; O2SAT 96
[2023-05-22 07:49] VITALS: PULSE 66; RESP 18; O2SAT 95
[2023-05-22 07:50] VITALS: BP 95/57
--- NOTE | 2023-05-22 08:15 | PC.NURSE ---
Alert and oriented, ambulating with steady gait to bathroom, denies chest pain or dizziness. Discharge plan reviewed with patient who verbalized understanding to follow up with doll surgeon.
== END 2023-05-22 08:20 | disposition home or self-care (01) ==
PROVIDERS: Emergency Provider Internal Medicine; PCP Internal Medicine Geriatric Medicine
DX: R07.9 Chest pain, unspecified (principal); R06.02 Shortness of breath; Z79.899 Other long term (current) drug therapy
CPT/HCPCS: 36415; 71045; 80048; 83880; 84484; 85025; 85379; 85610; 93005; 99284; 99285

== ENCOUNTER → 2023-05-21 22:29 | Outpatient (BNV) | payer OTHER, SELFPAY | PROVIDERS: Emergency Provider Internal Medicine; PCP Internal Medicine Geriatric Medicine; Visit Provider Internal Medicine | DX: I49.1 Atrial premature depolarization (principal) | CPT/HCPCS: 93010 ==

== ENCOUNTER 2023-06-04 19:35 | Emergency (ER) | payer OTHER, SELFPAY ==
--- NOTE | ~2023-06-04 | XR_ITS ---
EXAMINATION: XR RIBS, RIGHT CLINICAL INFORMATION: Right-sided obtained in hard crack. COMPARISON: Chest 05/22/2023 TECHNIQUE: 3 views of the right ribs were obtained. Chest PA 1 view FINDINGS: Lungs are clear. No consolidation, pneumothorax, or pleural effusion. There is lingular calcification similar to previous several exams dating to 05/24/2016. The cardiomediastinal silhouette and pulmonary vasculature are normal. No gross bony abnormality seen. Multiple views of right ribs with a marker placed along the lower lateral chest reveals no visible rib fracture or bony abnormality. XR/XR ribs RT min 3V w CXR1V IMPRESSION: 1. Unremarkable chest exam. 2. No visible right rib fracture seen. There is a lingular calcification unchanged to previous exams dating to 05/24/2016.
[2023-06-04 19:48] VITALS: BP 148/72; PULSE 69; RESP 16; TEMP 37.2; O2SAT 97; BMI 30.2
--- NOTE | 2023-06-04 19:54 | ED.GENADULT ---
HPI - General Adult General Chief complaint: Fall Stated complaint: Rib pain/inj Time Seen by Provider: 06/04/23 20:33 Source: patient Mode of arrival: ambulatory Limitations: no limitations History of Present Illness HPI narrative: 78-year-old male presents to emergency department with complaints of right-sided rib pain for the last 1 and half weeks. He reports that he was cleaning his truck when he leaned over to reach for something and heard a ?crack? and felt pain on the right side of the ribs. He reports he has been having pain since but the pain has worsened today. He denies running any shortness of breath, cough, fevers, chills, chest pain, or worsening pain with inspiration. pertinent positives and negatives discussed in HPI Related Data Home Medications Medication Instructions Recorded Confirmed nabumetone 750 mg tablet 750 mg PO BID 04/24/20 04/15/23 tadalafil 20 mg tablet 20 mg PO DAILY PRN Erectile 04/24/20 04/15/23 Dysfunction tramadol 50 mg tablet 50 mg PO Q12H PRN Pain 04/24/20 04/15/23 cholecalciferol (vitamin D3) 50 50 mcg PO DAILY 01/14/23 04/15/23 mcg (2,000 unit) tablet diclofenac sodium 1 % topical gel 2 g topical BID 05/07/23 multivitamin 1 tab PO DAILY 05/07/23 Previous Rx's Medication Instructions Recorded docusate sodium 100 mg capsule 100 mg PO BEDTIME #30 caps 01/24/21 metoprolol succinate 100 mg 100 mg PO DAILY #90 tabs 04/22/22 tablet,extended release 24 hr hydrocortisone 2.5 % topical cream 1 appl [place] BID-QID PRN hemorrhoids 05/07/23 with perineal applicator #30 grams (Proctosol HC) pantoprazole 40 mg tablet,delayed 40 mg PO DAILY #30 tabs 05/07/23 release sennosides 8.6 mg tablet (Natural 8.6 mg PO BEDTIME constipation #90 05/07/23 Senna Laxative) tabs wheat dextrin 3 gram/3.5 gram oral 1 packet PO DAILY #28 ea 05/07/23 powder packet (Benefiber Clear Sugar Free(dextrin)) acetaminophen 500 mg tablet 500 mg PO Q6H PRN fever or pain 05/11/23 (Tylenol Extra Strength) #14 tabs erythromycin 5 mg/gram (0.5 %) eye 0.5 inch ophthalmic (eye) QID 7 05/11/23 ointment days #3.5 grams lidocaine 5 % topical patch 1 patch topical DAILY PRN pain #30 05/11/23 (Lidoderm) ea Allergies Allergy/AdvReac Type Severity Reaction Status Date / Time No Known Allergies Allergy Verified 06/04/23 19:48 Review of Systems Review of Systems: Yes all other systems are reviewed and are negative FOR[facility]LY [facility], [facility] Past Medical History Medical History Palpitations SVT (supraventricular tachycardia) PVC's (premature ventricular contractions) Surgical History History of cholecystectomy Hx of endoscopy Hx of colonoscopy S/P ablation of ventricular arrhythmia (~2007) Family History Family History Father CVD (cardiovascular disease) Mother No problems noted. Social History Social History Patient Tobacco Use Status: Never used Tobacco Advance Directives: No Advance Directives Information Provided: No Physical Exam ED Vital Signs: Vital Signs - 24 hr 06/04/23 19:48 06/04/23 21:24 Temperature 98.9 F 97.8 F Pulse Rate 69 65 Respiratory Rate 16 18 Blood Pressure 148/72 H 132/68 Pulse Oximetry 97 97 Oxygen Delivery Method Room Air Room Air BMI result Body Mass Index 30.2 Nursing notes and vital signs reviewed. GENERAL APPEARANCE: A&0 x 4, generally well appearing, no acute distress HENMT: Normal to inspection, atraumatic, face symmetrical. Normal external ears, nose, and oropharynx clear. EYE: PERRLA, EOM intact, structures appear normal NECK: Supple without lymphadenopathy. No stiffness or restricted ROM. CHEST: Normal to inspection HEART: Normal rate and regular rhythm, normal S1/S2, no M/R/G LUNGS: LS CTA, moving air well. Able to speak in complete sentences. No crackles, wheezes, or rhonchi auscultated ABDOMEN: Soft, nontender, nondistended. Normal bowel sounds noted BACK: No CVAT, no obvious deformity EXTREMITIES: Moving all extremities without difficulty. No cyanosis, clubbing, or edema. Normal capillary refill. NEUROLOGICAL: Alert and oriented, moving all 4 extremities with equal strength. CN not formally tested but appearing grossly intact. Observed to ambulate with normal gait. Cognition normal SKIN: Warm and dry without any lesions, rash, or visible sores PSYCH: Cooperative, normal affect, normal thought process Course Course Course Narrative: RME: 78 yold jelena presents to the ED for Right sided lower rib pain after falling unto right chest while cleaning his truck 2 weeks ago. patient denies any head trauma. rib/chest xray ordered Medical Decision Making Medical Decision Making MDM Narrative: Old records reviewed for previous imaging, lab studies, ECGs, and notes. Patient was assessed the emergency department with no acute distress or toxicity noted. Lung sounds CTA on assessment and chest x-ray negative for acute fractures or infection per my interpretation. Patient's symptoms are consistent with a contusion of the ribs with low suspicion for fracture, dislocation, pneumonia, pneumothorax. Patient is safe for discharge at this time with plan for [id number] Tylenol and/or NSAID such as ibuprofen or naproxen for fever/discomfort with dosing as per packaging in addition to heat or ice. HPI, PE, diagnostics, and plan discussed with patient and family with no unanswered questions at this time. Strict return precautions given to return to the emergency department with new, worsening, or concerning emergent symptoms. Recommended to follow-up with there primary care provider in 24-48 hours for further treatment and management. Differential Diagnosis Differential Diagnoses: The differential diagnosis associated with the presentation includes But not limited to fracture, dislocation, contusion, pneumonia, pneumothorax, ACS, PE, sepsis, malignancy Discharge Plan Discharge Clinical Impression: Contusion of rib Patient Disposition: Home, Self-Care Instructions: Rib Contusion (ED) Additional Instructions: Your seen in the emergency department for concerns of rib pain. Your Xray showed not fractured or displaced ribs. You are safe for discharge at this time with plan for management of fever or discomfort with [id number] Tylenol and/or NSAID such as ibuprofen or naproxen with dosing as per packaging. Please return to the emergency department with new, worsening, or concerning emergent symptoms. Recommended to follow-up with your primary care provider in 24-48 hours for further treatment and management. Thank you for choosing [facility]. Prescriptions: No Action metoprolol succinate 100 mg tablet extended release 24 hr 100 mg PO DAILY Qty: 90 0RF Rx Instructions: Overdue for appt. Please call [phone] to schedule appt for 2022 so we can continue refilling future refills. erythromycin 5 mg/gram (0.5 %) ointment 0.5 inch ophthalmic (eye) QID 7 Days Qty: 3.5 0RF acetaminophen [Tylenol Extra Strength] 500 mg tablet 500 mg PO Q6H PRN (Reason: fever or pain) Qty: 14 0RF lidocaine [Lidoderm] 5 % adhesive patch,medicated 1 patch topical DAILY MDD remove after 12 hours PRN (Reason: pain) Qty: 30 0RF Rx Instructions: leave on most painful area for up to 12 hrs tramadol 50 mg tablet 50 mg PO Q12H PRN (Reason: Pain) nabumetone 750 mg tablet 750 mg PO BID tadalafil 20 mg tablet 20 mg PO DAILY PRN (Reason: Erectile Dysfunction) docusate sodium 100 mg capsule 100 mg PO BEDTIME Qty: 30 3RF multivitamin Tablet 1 tab PO DAILY diclofenac sodium 1 % gel 2 g topical BID Benefiber Clear SF (dextrin) 3 gram/3.5 gram powder in packet 1 packet PO DAILY Qty: 28 5RF Rx Instructions: mix into at least 4 oz water or juice before administering pantoprazole 40 mg tablet,delayed release (DR/EC) 40 mg PO DAILY Qty: 30 2RF Rx Instructions: take one tablet half an hour before breakfast hydrocortisone [Proctosol HC] 2.5 % cream with perineal applicator 1 appl [place] BID-QID PRN (Reason: hemorrhoids) Qty: 30 2RF sennosides [Natural Senna Laxative] 8.6 mg tablet 8.6 mg PO BEDTIME Qty: 90 3RF cholecalciferol (vitamin D3) 50 mcg (2,000 unit) tablet 50 mcg PO DAILY Referrals: Name,MD Amado [Primary Care Provider] - Interventions: ED Discharge Assessment Last Done: 06/04/23 21:37 Discharge Date/Time: 06/04/23 21:37 Print Language: Mongolian
[2023-06-04 21:24] VITALS: BP 132/68; PULSE 65; RESP 18; TEMP 36.6; O2SAT 97
== END 2023-06-04 21:37 | disposition home or self-care (01) ==
PROVIDERS: Emergency Provider Student in an Organized Health Care Education/Training Program; PCP Internal Medicine Geriatric Medicine
DX: S20.211A Contusion of right front wall of thorax, initial encounter (principal); X50.1XXA Overexertion from prolonged static or awkward postures, initial encounter; Y93.89 Activity, other specified; Y92.812 Truck as the place of occurrence of the external cause; Y99.9 Unspecified external cause status
CPT/HCPCS: 71101; 99283

== ENCOUNTER 2023-07-22 13:35 | Emergency (ER) | payer OTHER, SELFPAY ==
--- NOTE | ~2023-07-22 | XR_ITS ---
Examination: Right hip and lumbar spine. CLINICAL INDICATION: Low back pain and right hip pain comparison: None. TECHNIQUE: Lumbar spine 3 views. AP pelvis and right hip 3 views. FINDINGS: Lumbar spine: There is normal lumbar lordosis. The vertebral heights, alignment and disc heights are normal. There is no visible acute fracture, dislocation or subluxation seen. There is minimal ventral endplate spondylosis at L3-L4 disc level. SI joints are symmetrical and normal. AP pelvis and right hip: There is normal symmetry of bilateral hip joint space. SI joints are symmetrical and normal. No visible acute fracture or dislocation seen. The bowel gas pattern is normal. AP and frog-leg views right hip reveal no visible acute fracture or dislocation. No bony abnormality. No soft tissue calcification. XR/XR lumbar spine 2-3V IMPRESSION: 1. Unremarkable lumbar spine exam. 2. Unremarkable AP pelvis and right hip exam. No visible acute fracture or dislocation seen. No soft tissue calcification.
--- NOTE | ~2023-07-22 | XR_ITS ---
Examination: Right hip and lumbar spine. CLINICAL INDICATION: Low back pain and right hip pain comparison: None. TECHNIQUE: Lumbar spine 3 views. AP pelvis and right hip 3 views. FINDINGS: Lumbar spine: There is normal lumbar lordosis. The vertebral heights, alignment and disc heights are normal. There is no visible acute fracture, dislocation or subluxation seen. There is minimal ventral endplate spondylosis at L3-L4 disc level. SI joints are symmetrical and normal. AP pelvis and right hip: There is normal symmetry of bilateral hip joint space. SI joints are symmetrical and normal. No visible acute fracture or dislocation seen. The bowel gas pattern is normal. AP and frog-leg views right hip reveal no visible acute fracture or dislocation. No bony abnormality. No soft tissue calcification. XR/XR hip RT w PEL1V IMPRESSION: 1. Unremarkable lumbar spine exam. 2. Unremarkable AP pelvis and right hip exam. No visible acute fracture or dislocation seen. No soft tissue calcification.
[2023-07-22 13:56] VITALS: BP 156/80; PULSE 56; RESP 16; TEMP 36.8; O2SAT 98; BMI 23.7
--- NOTE | 2023-07-22 13:58 | ED.GENADULT ---
HPI - General Adult General Chief complaint: Abdominal Pain Stated complaint: R Side Pain Time Seen by Provider: 07/22/23 15:47 Source: patient Mode of arrival: ambulatory Limitations: no limitations History of Present Illness HPI narrative: Patient is a 78-year-old male presenting to the emergency department with complaint of right lower back pain for the past few months, worsening over the past few weeks. He feels as though he developed swelling around 3 weeks ago. He denies any radiation of the pain. Denies any dysuria, frequency, hematuria or other urinary symptoms. He does report history of kidney stones as well as hematuria in the past, states had cystoscopy around 1 year ago due to hematuria but was told there was no evidence of malignancy. He states that he does work out regularly and feels pain may be musculoskeletal. He has tried ibuprofen with little relief. He denies radiation of pain to his lower extremities. Denies saddle anesthesia or bowel or bladder incontinence or retention. Denies fevers. MD complaint: back pain Onset (ago): week(s) Location: back Radiation: non-radiation Severity: moderate Quality: aching Pain Consistency: colicky Relieving factors: rest Exacerbating factors: other (palpation) Associated symptoms: denies other symptoms Treatments prior to arrival: NSAID Related Data Home Medications Medication Instructions Recorded Confirmed nabumetone 750 mg tablet 750 mg PO BID 04/24/20 04/15/23 tadalafil 20 mg tablet 20 mg PO DAILY PRN Erectile 04/24/20 04/15/23 Dysfunction tramadol 50 mg tablet 50 mg PO Q12H PRN Pain 04/24/20 04/15/23 cholecalciferol (vitamin D3) 50 50 mcg PO DAILY 01/14/23 04/15/23 mcg (2,000 unit) tablet diclofenac sodium 1 % topical gel 2 g topical BID 05/07/23 multivitamin 1 tab PO DAILY 05/07/23 Previous Rx's Medication Instructions Recorded docusate sodium 100 mg capsule 100 mg PO BEDTIME #30 caps 01/24/21 metoprolol succinate 100 mg 100 mg PO DAILY #90 tabs 04/22/22 tablet,extended release 24 hr hydrocortisone 2.5 % topical cream 1 appl [place] BID-QID PRN hemorrhoids 05/07/23 with perineal applicator #30 grams (Proctosol HC) pantoprazole 40 mg tablet,delayed 40 mg PO DAILY #30 tabs 05/07/23 release sennosides 8.6 mg tablet (Natural 8.6 mg PO BEDTIME constipation #90 05/07/23 Senna Laxative) tabs wheat dextrin 3 gram/3.5 gram oral 1 packet PO DAILY #28 ea 05/07/23 powder packet (Benefiber Clear Sugar Free(dextrin)) acetaminophen 500 mg tablet 500 mg PO Q6H PRN fever or pain 05/11/23 (Tylenol Extra Strength) #14 tabs erythromycin 5 mg/gram (0.5 %) eye 0.5 inch ophthalmic (eye) QID 7 05/11/23 ointment days #3.5 grams lidocaine 5 % topical patch 1 patch topical DAILY PRN pain #30 05/11/23 (Lidoderm) ea cyclobenzaprine 5 mg tablet 5 mg PO TID PRN muscle spasm #10 07/22/23 tabs lidocaine 5 % topical patch 1 patch topical DAILY #15 ea 07/22/23 Allergies Allergy/AdvReac Type Severity Reaction Status Date / Time No Known Allergies Allergy Verified 06/04/23 19:48 Review of Systems Review of Systems: As per HPI. Yes all other systems are reviewed and are negative Constitutional: Constitutional: Reports as per HPI [facility] Past Medical History Medical History Palpitations SVT (supraventricular tachycardia) PVC's (premature ventricular contractions) Surgical History History of cholecystectomy Hx of endoscopy Hx of colonoscopy S/P ablation of ventricular arrhythmia (~2007) Family History Family History Father CVD (cardiovascular disease) Mother No problems noted. Social History Social History Patient Tobacco Use Status: Never used Tobacco Advance Directives: No Advance Directives Information Provided: No Physical Exam ED Vital Signs: Vital Signs - 24 hr 07/22/23 13:56 Temperature 98.2 F Pulse Rate 56 Respiratory Rate 16 Blood Pressure 156/80 H Pulse Oximetry 98 Oxygen Delivery Method Room Air BMI result Body Mass Index 23.7 Vital signs have been reviewed and appear to be correct. Blood pressure elevated. Heart rate normal. Respiratory rate normal. Temperature normal. Oxygen saturation normal. Const General: cooperative, healthy appearing and no acute distress Orientation/consciousness: oriented to person, oriented to place, oriented to time and patient oriented x3 Limitations: no limitations HENMT Head: Yes normocephalic and Yes atraumatic Ears: external ears normal General nose exam: Normal external nose present Face and sinus: Yes face symmetric Mouth: oropharynx normal and moist mucous membranes Throat: Yes uvula midline Eyes Pupils: Equal, round and reactive pupils present Neck Neck: Yes normal visual inspection and Yes supple Resp Effort & Inspection: normal respiratory effort and able to speak in complete sentences Auscultation: clear to auscultation bilaterally Cardio Rate: regular rate Rhythm: regular rhythm Heart sounds: S1 normal heart sound present and S2 normal heart sound present GI Palpation (GI): Soft to palpation and nontender Auscultation: normoactive bowel sounds General: Yes no CVA tenderness Back/Spine/Pelvis Back: no CVA tenderness Thoracic/Lumbar Spine: thoracic and lumbar spine normal to inspection, thoraco-lumbar ROM normal, straight leg raise negative bilaterally, pain with thoraco-lumbar ROM, paraspinal muscle tenderness on the right in the upper lumbar and in the mid lumbar, No thoracic spinal tenderness and No lumbar spinal tenderness Pelvis: no pain with anterior-posterior compression and no pain with lateral compression Sacroiliac joints: bilaterally nontender Skin General skin exam: elasticity normal and turgor normal Neuro General: oriented to person, oriented to place, oriented to time, patient oriented x3, moves all extremities, no focal motor deficits and CN's II-XI intact bilaterally Cranial nerves: Yes Equal, round and reactive pupils present Cognition (Neuro): normal cognition Extrem General: Yes full ROM, Yes no pedal edema and Yes no calf tenderness Psych Mental Status: mental status grossly normal Affect: normal affect Thought process: Normal thought process present Course Course Course Narrative: This is an RME: Additional HPI, ROS, PE not included below will be deferred to primary provider. This is a 18-mgrs-thw-male, with a hx of kidney stones, presenting to the ER with complaints of right hip pain times several months, worsening over the last 3 weeks. No recent trauma, injury, heavy lifting. He is tenderness palpation along the right SI joint. No CVA tenderness. No urinary symptoms. No fevers, chills, abdominal pain, nausea, vomiting or diarrhea. No chest pain or shortness of breath. Plan: X-ray hip, lumbar spine Medical Decision Making Medical Decision Making [facility] Narrative: Patient is a 78-year-old male presenting to the emergency department with complaint of right lower back pain for the past few months, worsening over the past few weeks. On exam patient is awake, A+Ox3, BP elevated, VS otherwise WNL, afebrile, normal neurological exam without focal deficits, physical exam findings as above. Given reported symptoms and physical exam findings, initial differential includes lumbar strain, fracture, subluxation, degenerative disease. Do not suspect cauda equina, cord compression, spinal epidural abscess. X-ray notable for no evidence of fracture, subluxation, or dislocation of lumbar spine, hip or pelvis. My interpretation is in agreement with the radiologist's interpretation. Urinalysis notable for no blood or evidence of infection. Feel based on reported symptoms and physical exam findings, pain is likely musculoskeletal. Will treat patient with cyclobenzaprine and topical lidocaine patches, advised him to alternate Tylenol and ibuprofen. Instructed patient to follow-up with his primary care provider. Return precautions discussed at bedside. Patient verbalized understanding of and agreement with plan. Differential Diagnosis Differential Diagnoses: The differential diagnosis associated with the presentation includes As per [facility]. Admission/Observation Consideration of admission/observation: Escalation of care including admission/observation considered Patient would have been admitted to the hospital had their work up had any findings where hospital admission was appropriate and their clinical presentation warranted hospital admission. Lab Data [facility] Lab Attestation statement: I reviewed the patient's lab results. as per [facility] Labs: Lab Results 07/22/23 Range/Units 16:18 Urine Color Yellow Urine Appearance Clear Urine pH 7.0 (5.0-9.0) Ur Specific Lillian 1.020 (1.005-1.025) Urine Protein Negative (Neg-Trace) mg/dL Urine Glucose (UA) Negative (Negative) mg/dL Urine Ketones Negative (Negative) mg/dL Urine Blood Negative (Negative) Urine Nitrite Negative (Negative) Ur Leukocyte Esterase Negative (Negative) Independent Interpretation I performed an independent interpretation of an: Plain X-Ray Interpretation: No evidence of fracture, subluxation, or dislocation of lumbar spine, hip or pelvis Radiology Impression Discussion of test interpretation with radiology: I have reviewed the radiologist's reading. Radiologist Impression: XR/XR hip RT w PEL1V IMPRESSION: 1. Unremarkable lumbar spine exam. 2. Unremarkable AP pelvis and right hip exam. No visible acute fracture or dislocation seen. No soft tissue calcification. External Record Review External record reviewed: Inpatient record, Office record and Outpatient record Prescription Management I considered prescription management with: Pain Medication and Other Discharge Plan Discharge Clinical Impression: Lumbar strain Patient Disposition: Home, Self-Care Instructions: Low Back Strain (ED) Additional Instructions: You were evaluated in the emergency department today for back pain. Your evaluation did not show signs of medical conditions requiring emergent intervention at this time. We recommended that you use ibuprofen or Tylenol per package directions every 6 hours as needed for pain. If necessary, you can alternate these medications so that you take one medication every 3 hours. For instance, at noon take ibuprofen, then at 3:00 p.m. take Tylenol, then at 6:00 p.m. take ibuprofen. You have been prescribed a muscle relaxer which you may take every 8 hours as needed for spasms. You have been prescribed 5% topical lidocaine patches which you can wear for up to 12 hours in a 24 hour period. Do not apply heat directly over the patches. Please schedule an appointment for follow-up with your primary care physician this week for further evaluation of your symptoms. Return to the emergency department if you experience worsening back pain, difficulty walking, fevers, numbness, tingling, incontinence, groin numbness or tingling, or any other concerning symptoms. Prescriptions: New cyclobenzaprine 5 mg tablet 5 mg PO TID PRN (Reason: muscle spasm) Qty: 10 0RF lidocaine 5 % adhesive patch,medicated 1 patch topical DAILY Qty: 15 0RF Rx Instructions: leave on most painful area for up to 12 hrs No Action metoprolol succinate 100 mg tablet extended release 24 hr 100 mg PO DAILY Qty: 90 0RF Rx Instructions: Overdue for appt. Please call [phone] to schedule appt for 2022 so we can continue refilling future refills. erythromycin 5 mg/gram (0.5 %) ointment 0.5 inch ophthalmic (eye) QID 7 Days Qty: 3.5 0RF acetaminophen [Tylenol Extra Strength] 500 mg tablet 500 mg PO Q6H PRN (Reason: fever or pain) Qty: 14 0RF lidocaine [Lidoderm] 5 % adhesive patch,medicated 1 patch topical DAILY MDD remove after 12 hours PRN (Reason: pain) Qty: 30 0RF Rx Instructions: leave on most painful area for up to 12 hrs tramadol 50 mg tablet 50 mg PO Q12H PRN (Reason: Pain) nabumetone 750 mg tablet 750 mg PO BID tadalafil 20 mg tablet 20 mg PO DAILY PRN (Reason: Erectile Dysfunction) docusate sodium 100 mg capsule 100 mg PO BEDTIME Qty: 30 3RF multivitamin Tablet 1 tab PO DAILY diclofenac sodium 1 % gel 2 g topical BID Benefiber Clear SF (dextrin) 3 gram/3.5 gram powder in packet 1 packet PO DAILY Qty: 28 5RF Rx Instructions: mix into at least 4 oz water or juice before administering pantoprazole 40 mg tablet,delayed release (DR/EC) 40 mg PO DAILY Qty: 30 2RF Rx Instructions: take one tablet half an hour before breakfast hydrocortisone [Proctosol HC] 2.5 % cream with perineal applicator 1 appl [place] BID-QID PRN (Reason: hemorrhoids) Qty: 30 2RF sennosides [Natural Senna Laxative] 8.6 mg tablet 8.6 mg PO BEDTIME Qty: 90 3RF cholecalciferol (vitamin D3) 50 mcg (2,000 unit) tablet 50 mcg PO DAILY
[2023-07-22 16:26] LABS: Appearance Urine Clear; Color Urine Yellow; Glucose Urine UA Negative (Negative); Leukocyte Esterase Urine Negative (Negative); Nitrite Urine Negative (Negative); Urine Blood Negative (Negative); Urine Ketones Negative (Negative); Urine Protein Negative (Neg-Trace)
[2023-07-22 16:51] VITALS: BP 156/80; PULSE 56; RESP 16; TEMP 36.8; O2SAT 98
== END 2023-07-22 16:52 | disposition home or self-care (01) ==
PROVIDERS: Registered Nurse Emergency; Emergency Provider Internal Medicine; PCP Internal Medicine Geriatric Medicine
DX: M54.50 Low back pain, unspecified (principal); M25.551 Pain in right hip; M79.10 Myalgia, unspecified site; Z79.899 Other long term (current) drug therapy
CPT/HCPCS: 72100; 73502; 81003; 99282; 99283

== ENCOUNTER 2023-07-25 11:03 | Outpatient (AMB) | payer OTHER, SELFPAY ==
--- NOTE | 2023-07-25 11:07 | A.OFFVIS_ITS ---
Intake Vital Signs 07/25/23 11:10 Height 5 ft 11 in Weight 202 lb BMI 28.2 BP 131/69 Blood Pressure Location Lt brachial Position Sitting Pulse 65 Intake Visit Reasons: 5 Weeks Follow Up Intake Note: Patient 5 week follow up for Pace-'-s- Esophagus. Patient cc: abdominal discomfort on and off, constipation and acid reflex with some burning sensation. 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 Patient is not taking Nexium. Will start him on pantoprazole 40 mg every morning half an hour before breakfast. Discussed with patient avoiding dietary triggers and late night snacking. Staying upright for minimum 3 hours after meals discussed with patient. Patient will start taking Benefiber every morning. Patient was also encouraged to increase fluid intake and activity to promote better bowel motility. Script for Proctosol given to patient. High-fiber diet discussed with patient. List of food high in fiber given to patient. Patient will be sent in the office in 5 weeks, sooner on as needed basis. Patient is agreeable to this plan and verbalizes understanding of instructions. He was given the opportunity to ask questions and all questions answered. ? Thank you for allowing me to participate in his care Medications New wheat dextrin (Benefiber Clear Sugar Free(dextrin)) mix into at least 4 oz water or juice before administering 1 packet PO DAILY 28 ea 5RF K59.01 pantoprazole take one tablet half an hour before breakfast 40 mg PO DAILY 30 tabs 2RF K21.9 hydrocortisone 2.5% (Proctosol HC) 1 appl [place] BID-QID PRN 30 grams 2RF hemor rhoids K64.9 Refilled sennosides (Natural Senna Laxative) 8.6 mg PO BEDTIME 90 tabs 3RF constipati on K59.00 TODAY'S VISIT: Patient is here today for follow-up. Patient reports that since the last time I have seen him he has been feeling better, however he reports that he will wake up in the morning with epigastric burning. Patient states that his symptoms go away after he takes pantoprazole. His symptoms are suppressed throughout the day. Patient also reports that he changed his diet. No longer is eating rice and beans and pork. Patient is eating more fruits and vegetables. Sometimes he salads. Occasionally patient reports that he will have postprandial abdominal bloating. Patient denies any pain after meals. Patient reports that he occasionally feels constipated and takes Senokot on as needed basis. Patient does not take Senokot every day. Sometimes no BM for 2-3 days that is when patient takes Senokot to help him move his bowels better. Patient is taking fiber supplements daily. No longer has loose stools. Patient denies melena, hematochezia, unintentional weight loss or ribbon like stools. Patient reports occasional dyspepsia without dysphagia or odynophagia [facility] Medical History Palpitations SVT (supraventricular tachycardia) PVC's (premature ventricular contractions) Surgical History History of cholecystectomy Hx of endoscopy Hx of colonoscopy S/P ablation of ventricular arrhythmia (~2007) Family History Father CVD (cardiovascular disease) Mother No problems noted. Social History Patient Tobacco Use Status: Never used Tobacco Review of Systems Const Denies weight gain and Denies weight loss ENT Reports no additional complaints, Denies dysphagia and Denies odynophagia Card Reports no additional complaints Resp Reports no additional complaints GI Denies abdominal pain, Denies belching, Denies melena, Denies bloating, Reports constipation, Denies dysphagia, Denies excessive flatus, Denies dyspepsia, Reports heartburn, Denies diarrhea, Denies loose stools, Denies nausea, Denies odynophagia and Denies vomiting Reports no additional complaints Musc Reports no additional complaints Neuro Reports no additional complaints Psych Reports no additional complaints Endo Reports no additional complaints Physical Exam Vital Signs: Last Vital Signs Pulse 65 07/25/23 11:10 BP 131/69 07/25/23 11:10 BMI result Body Mass Index 28.2 Const General: healthy appearing, no acute distress and well developed Nutritional Appearance: well nourished Orientation/consciousness: patient oriented x3 Resp Effort & Inspection: normal respiratory effort, able to speak in complete sentences, no tracheal deviation and symmetric chest movement Auscultation: clear to auscultation bilaterally Cardio Rate: regular rate GI Inspection: Yes normal to inspection and No distended Palpation (GI): Soft to palpation, not firm, nontender and No hepatosplenomegaly present Auscultation: normal bowel sounds General: Yes no CVA tenderness Back/Spine/Pelvis Back: no CVA tenderness Skin General skin exam: elasticity normal, turgor normal and dry skin Neuro General: patient oriented x3 Psych Appearance: grossly normal Mental Status: mental status grossly normal Assessment & Plan Assessment & Plan (1) IBS (irritable bowel syndrome): Code(s): K58.9 - Irritable bowel syndrome without diarrhea Qualifiers: Irritable bowel syndrome type: with constipation Qualified Code(s): K58.1 - Irritable bowel syndrome with constipation (2) GERD (gastroesophageal reflux disease): Code(s): K21.9 - Gastro-esophageal reflux disease without esophagitis Qualifiers: Esophagitis presence: esophagitis presence not specified Qualified Code(s): K21.9 - Gastro-esophageal reflux disease without esophagitis (3) Postprandial diarrhea: Code(s): K52.9 - Noninfective gastroenteritis and colitis, unspecified (4) 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 Continue pantoprazole and start famotidine at night time. Patient will get some more blood work we will rule out celiac, pancreatitis. Patient is experiencing postprandial abdominal bloating specially in the evening. Patient is eating smaller amounts. Will rule out pancreatic insufficiency. Low FODMAP diet discussed with patient. List of food recommended as well as list of food to avoid was given to patient lost time and he will try to do elimination diet. However patient might benefit from enzymes if he continues to have symptoms even though pancreatic insufficiency will be ruled out. I will see patient in 2 months, sooner on as needed basis. Patient is agreeable to this plan and verbalizes understanding of instructions. He was given the opportunity to ask questions and all questions answered. Thank you for allowing me to participate in his care Orders: Orders Transglutaminase Ab IgG Today R10.9 - Unspecified abdominal pain Lipase Today R10.9 - Unspecified abdominal pain Liver Panel Today R74.01 - Elevation of levels of liver transaminase levels Pancreatic Elastase-1 Today R10.9 - Unspecified abdominal pain Transglutaminase IgA Today R10.9 - Unspecified abdominal pain Medications: New famotidine (Pepcid) 20 mg PO BEDTIME 30 tabs 3RF K21.9 - Gastro-esophageal reflux disease without esophagitis Coding Level of Care Code Est Pt Level 4 (01478) Diagnoses Irritable bowel syndrome with constipation K58.1 Irritable bowel syndrome type: with constipation Gastroesophageal reflux disease, unspecified whether esophagitis present K21.9 Esophagitis presence: esophagitis presence not specified Postprandial diarrhea K52.9 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
[2023-07-25 11:10] VITALS: BP 131/69; PULSE 65; BMI 28.2
== END 2023-07-25 11:32 | disposition home or self-care (01) ==
PROVIDERS: PCP Internal Medicine Geriatric Medicine; Visit Provider Nurse Practitioner Family
DX: K58.1 Irritable bowel syndrome with constipation (principal); K21.9 Gastro-esophageal reflux disease without esophagitis; K22.70 Barrett's esophagus without dysplasia
CPT/HCPCS: 99214

== ENCOUNTER 2023-07-25 11:03 | Outpatient (REF) | payer OTHER, SELFPAY ==
[2023-07-25 13:39] LABS: Alanine Aminotransferase 19 U/L (0-40); Alkaline Phosphatase 103 U/L (39-117); Aspartate Amino Transferase 16 U/L (5-37); Bilirubin Direct 0.2 mg/dL (0.0-0.5); Bilirubin Total 0.4 mg/dL (0.0-1.0); Lipase 14 U/L (8-78); Total Protein 7.5 g/dL (6.5-8.0)
[2023-07-30 20:12] LABS: Transglutaminase Ab IgG 1.2 U/mL; Transglutaminase IgA <1.0 U/mL
== END 2023-07-25 11:04 | disposition home or self-care (01) ==
LOC: HO.LAB 11:03
PROVIDERS: PCP Internal Medicine Geriatric Medicine; Visit Provider Nurse Practitioner Family
DX: R10.9 Unspecified abdominal pain (principal); R74.01 Elevation of levels of liver transaminase levels; K58.1 Irritable bowel syndrome with constipation; K21.9 Gastro-esophageal reflux disease without esophagitis; K22.70 Barrett's esophagus without dysplasia; Z90.49 Acquired absence of other specified parts of digestive tract
CPT/HCPCS: 36415; 80076; 83690; 86364

== ENCOUNTER 2023-07-29 16:04 | Outpatient (REF) | payer OTHER, SELFPAY ==
[2023-08-03 19:18] LABS: Pancreatic Elastase-1 >500 mcg/g
== END 2023-07-29 16:05 | disposition home or self-care (01) ==
LOC: HO.LNP 16:04
PROVIDERS: Visit Provider Nurse Practitioner Family
DX: R10.9 Unspecified abdominal pain (principal)
CPT/HCPCS: 82656

== ENCOUNTER 2023-09-19 12:52 | Outpatient (AMB) | payer OTHER, SELFPAY ==
[2023-09-19 12:57] VITALS: BP 143/74; PULSE 63; BMI 28.4
--- NOTE | 2023-09-19 12:57 | A.OFFVIS_ITS ---
Vital Signs 09/19/23 12:57 Height 5 ft 11 in Weight 203 lb 11.314 oz BMI 28.4 BP 143/74 H Blood Pressure Location Lt brachial Position Sitting Pulse 63 Intake Visit Reasons: 2 month follow up Intake Note: Patient 2 months follow up for Pace's Esophagus and labs. CC: Patient c/o feeling a heat from stomach and a sour taste in his mouth. Denies other GI symptoms. 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 Continue pantoprazole and start famotidine at night time. Patient will get some more blood work we will rule out celiac, pancreatitis. Patient is experiencing postprandial abdominal bloating specially in the evening. Patient is eating smaller amounts. Will rule out pancreatic insufficiency. Low FODMAP diet discussed with patient. List of food recommended as well as list of food to avoid was given to patient lost time and he will try to do elimination diet. However patient might benefit from enzymes if he continues to have symptoms even though pancreatic insufficiency will be ruled out. I will see patient in 2 months, sooner on as needed basis. Patient is agreeable to this plan and verbali zes understanding of instructions. He was given the opportunity to ask questions and all questions answered. ? Thank you for allowing me to participate in his care Orders Orders Transglutaminase Ab IgG Today R10.9 Lipase Today R10.9 Liver Panel Today R74.01 Pancreatic Elastase-1 Today R10.9 Transglutaminase IgA Today R10.9 Medications New famotidine (Pepcid) 20 mg PO BEDTIME 30 tabs 3RF K21.9 TODAY'S VISIT Patient is here today for follow-up and to discuss lab results. Patient continues to have epigastric pain and burning and specially in the morning when he wakes up. Occasional nausea without vomiting. Patient states that he moves his bowels takes Senokot 1 tablet on as needed basis. Patient states that when he has bowel where he does not feel like he empties completely. Bowel movement every 2-3 days. Patient denies melena, hematochezia, unintentional weight loss or ribbon like stools. Patient reports dyspepsia without dysphagia or odynophagia. Patient also admits to postprandial abdominal bloating and feeling full. [facility] Medical History Palpitations SVT (supraventricular tachycardia) PVC's (premature ventricular contractions) Surgical History History of cholecystectomy Hx of endoscopy Hx of colonoscopy S/P ablation of ventricular arrhythmia (~2007) Family History Father CVD (cardiovascular disease) Mother No problems noted. Social History Patient Tobacco Use Status: Never used Tobacco Review of Systems Const Denies weight gain and Denies weight loss ENT Reports no additional complaints, Denies dysphagia and Denies odynophagia Card Reports no additional complaints Resp Reports no additional complaints GI Reports abdominal pain (Epigastric burning), Denies belching, Denies melena, Reports bloating, Denies change in bowel habits, Reports constipation, Denies dysphagia, Denies excessive flatus, Reports dyspepsia, Denies heartburn, Denies diarrhea, Denies loose stools, Denies nausea, Denies odynophagia and Denies vomiting Reports no additional complaints Musc Reports no additional complaints Neuro Reports no additional complaints Psych Reports no additional complaints Endo Reports no additional complaints Physical Exam Vital Signs: Last Vital Signs Pulse 63 09/19/23 12:57 BP 143/74 H 09/19/23 12:57 BMI result Body Mass Index 28.4 Const General: healthy appearing, no acute distress and well developed Nutritional Appearance: well nourished Orientation/consciousness: patient oriented x3 Resp Effort & Inspection: normal respiratory effort, able to speak in complete sentences, no tracheal deviation and symmetric chest movement Auscultation: clear to auscultation bilaterally Cardio Rate: regular rate GI Inspection: Yes normal to inspection and No distended Palpation (GI): Soft to palpation, not firm, nontender and No hepatosplenomegaly present Auscultation: normal bowel sounds General: Yes no CVA tenderness Back/Spine/Pelvis Back: no CVA tenderness Skin General skin exam: elasticity normal, turgor normal and dry skin Neuro General: patient oriented x3 Psych Appearance: grossly normal Mental Status: mental status grossly normal Results Reviewed Results Reviewed: Laboratory Tests 07/25/23 07/29/23 11:56 10:30 Direct Bilirubin 0.2 AST 16 ALT 19 Lipase 14 Stool Pancreat Elastase >500 Tiss Transglutamin IgG 1.2 Tiss Transglutamin IgA <1.0 Assessment & Plan Assessment & Plan (1) IBS (irritable bowel syndrome): Code(s): K58.9 - Irritable bowel syndrome without diarrhea Qualifiers: Irritable bowel syndrome type: without diarrhea Qualified Code(s): K58.9 - Irritable bowel syndrome without diarrhea (2) GERD (gastroesophageal reflux disease): Code(s): K21.9 - Gastro-esophageal reflux disease without esophagitis Qualifiers: Esophagitis presence: esophagitis presence not specified Qualified Code(s): K21.9 - Gastro-esophageal reflux disease without esophagitis (3) Postprandial diarrhea: Code(s): K52.9 - Noninfective gastroenteritis and colitis, unspecified (4) 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 Avoid dietary triggers and late night snacking. Famotidine will be order at bedtime. Patient was encouraged to stay upright for minimum 3 hours after meals. Encouraged him to take Senokot 2 tablets every evening. Increase fluid intake and activity to promote better bowel motility. Patient was encouraged to eat small meals and more often. He will return to our office in 2 months and will call if he will have any GI concerning symptoms. He is agreeable to this plan and verbalizes understanding of instructions. He was given the opportunity to ask questions and all questions answered. Thank you for allowing me to participate in his care Medications: New famotidine 40 mg PO BEDTIME 30 tabs 3RF K21.9 - Gastro-esophageal reflux disease without esophagitis omeprazole 40 mg PO DAILY 90 caps 3RF K21.9 - Gastro-esophageal reflux disease without esophagitis Changed From sennosides (Natural Senna Laxative) 8.6 mg PO BEDTIME 90 tabs 3RF constipation K59.00 - Constipation, unspecified To sennosides (Natural Senna Laxative) 17.2 mg (2 x 8.6 mg) PO BEDTIME 90 tabs 3RF constipation K59.00 - Constipation, unspecified Discontinued pantoprazole take one tablet half an hour before breakfast Discontinued Reason: Doctor's Order 40 mg PO DAILY 30 tabs 2RF K21.9 - Gastro-esophageal reflux disease without esophagitis Coding Level of Care Code Est Pt Level 3 (51861) Diagnoses Irritable bowel syndrome without diarrhea K58.9 Irritable bowel syndrome type: without diarrhea Gastroesophageal reflux disease, unspecified whether esophagitis present K21.9 Esophagitis presence: esophagitis presence not specified Postprandial diarrhea K52.9 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
== END 2023-09-19 13:27 | disposition home or self-care (01) ==
PROVIDERS: PCP Internal Medicine Geriatric Medicine; Visit Provider Nurse Practitioner Family
DX: K58.0 Irritable bowel syndrome with diarrhea (principal); K21.9 Gastro-esophageal reflux disease without esophagitis; K22.70 Barrett's esophagus without dysplasia
CPT/HCPCS: 99213

== ENCOUNTER → 2023-09-19 12:52 | Outpatient (BNVA) | payer OTHER, SELFPAY | PROVIDERS: PCP Internal Medicine Geriatric Medicine; Visit Provider Nurse Practitioner Family ==

== ENCOUNTER 2023-10-14 13:09 | Emergency (ER) | payer OTHER, SELFPAY | END 2023-10-14 15:34 | disposition left against medical advice (07) | LOC: HO.ED 15:27 | PROVIDERS: Emergency Provider Emergency Medicine; PCP Internal Medicine Geriatric Medicine | DX: Z53.21 Procedure and treatment not carried out due to patient leaving prior to being seen by health care provider (principal); M54.50 Low back pain, unspecified ==

== ENCOUNTER 2023-11-21 13:17 | Outpatient (AMB) | payer OTHER, SELFPAY ==
--- NOTE | 2023-11-21 13:47 | A.OFFVIS_ITS ---
Vital Signs 11/21/23 13:54 Height 5 ft 11 in Weight 201 lb 15.095 oz BMI 28.2 BP 134/76 Blood Pressure Location Rt brachial Position Sitting Pulse 52 Pulse Source Pulse Oximeter Pulse Oximetry (%) 98 Oxygen Delivery Method Room Air Intake Visit Reasons: 2 month follow up Intake Note: Yovani presents in office today for a scheduled 2 mos FUV. CC: Pt was rx'd senna, famotidine, and omeprazole at their last visit. Pt reports that the senna and famotidine have been effective. However, they did not ever end up receiving the omeprazole. Per the pharmacy, the rx was never r eceived. Pt is unsure if he is supposed to be taking pantoprazole or omeprazole. 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 Avoid dietary triggers and late night snacking. Famotidine will be order at bedtime. Patient was encouraged to stay upright for minimum 3 hours after meals. Encouraged him to take Senokot 2 tablets every evening. Increase fluid intake and activity to promote better bowel motility. Patient was encouraged to eat small meals and more often. He will return to our office in 2 months and will call if he will have any GI concerning symptoms. He is agreeable to this plan and verbalizes understanding of instructions. He was given the opportunity to ask questions and all questions answered. ? Thank you for allowing me to participate in his care Medications New famotidine 40 mg PO BEDTIME 30 tabs 3RF K21.9 omeprazole 40 mg PO DAILY 90 caps 3RF K21.9 Changed Changed From sennosides (Natural Senna Laxative) 8.6 mg PO BEDTIME 90 tabs 3RF constipation K59.00 Changed To sennosides (Natural Senna Laxative) 17.2 mg (2 x 8.6 mg) PO BEDTIME 90 tabs 3RF constipation K59.00 Discontinued pantoprazole take one tablet half an hour before breakfast Discontinued Reason: Doctor's Order 40 mg PO DAILY 30 tabs 2RF K21.9 TODAY'S VISIT Patient is here today for follow-up. Patient reports that he has been feeling better since last time I have seen him. Patient is taking famotidine at bedtime and his symptoms are suppressed. Patient reports that he never received omeprazole from pharmacy. Will recent the script today. Patient take Senokot every evening and moving his bowels much better. Patient reports that he no longer feels bloated. Have changed his diet and eating better and drinking plenty fluids. Patient denies any additional GI concerning symptoms. Denies melena, hematochezia. Denies dyspepsia, dysphagia or odynophagia. [facility] Medical History Palpitations SVT (supraventricular tachycardia) PVC's (premature ventricular contractions) Surgical History History of cholecystectomy Hx of endoscopy Hx of colonoscopy S/P ablation of ventricular arrhythmia (~2007) Family History Father CVD (cardiovascular disease) Mother No problems noted. Social History Patient Tobacco Use Status: Never used Tobacco Review of Systems Const Denies weight gain and Denies weight loss ENT Reports no additional complaints, Denies dysphagia and Denies odynophagia Card Reports no additional complaints Resp Reports no additional complaints GI Denies abdominal pain, Denies belching, Denies melena, Denies bloating, Denies change in bowel habits, Denies constipation, Denies dysphagia, Denies excessive flatus, Denies dyspepsia, Denies heartburn, Denies diarrhea, Denies loose stools, Denies nausea, Denies odynophagia and Denies vomiting Reports no additional complaints Musc Reports no additional complaints Neuro Reports no additional complaints Psych Reports no additional complaints Endo Reports no additional complaints Physical Exam Const General: healthy appearing, no acute distress and well developed Nutritional Appearance: well nourished Orientation/consciousness: patient oriented x3 Resp Effort & Inspection: normal respiratory effort, able to speak in complete sentences, no tracheal deviation and symmetric chest movement Auscultation: clear to auscultation bilaterally Cardio Rate: regular rate GI Inspection: Yes normal to inspection and No distended Palpation (GI): Soft to palpation, not firm, nontender and No hepatosplenomegaly present Auscultation: normal bowel sounds General: Yes no CVA tenderness Back/Spine/Pelvis Back: no CVA tenderness Skin General skin exam: elasticity normal, turgor normal and dry skin Neuro General: patient oriented x3 Psych Appearance: grossly normal Mental Status: mental status grossly normal Assessment & Plan Assessment & Plan (1) IBS (irritable bowel syndrome): Code(s): K58.9 - Irritable bowel syndrome without diarrhea Qualifiers: Irritable bowel syndrome type: with both diarrhea and constipation Qualified Code(s): K58.2 - Mixed irritable bowel syndrome (2) GERD (gastroesophageal reflux disease): Code(s): K21.9 - Gastro-esophageal reflux disease without esophagitis Qualifiers: Esophagitis presence: esophagitis presence not specified Qualified Code(s): K21.9 - Gastro-esophageal reflux disease without esophagitis (3) Postprandial diarrhea: Code(s): K52.9 - Noninfective gastroenteritis and colitis, unspecified (4) 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 Continue avoiding dietary triggers and late night snacking. Staying upright for minimum 3 hours after meals discussed with patient. Patient will continue taking Senokot. Increase fluid intake and activity to promote better bowel motility. Increase fiber intake. Follow-up in 4 months, sooner on as needed basis. Patient is agreeable to this plan and verbalizes understanding of instructions. She was given the opportunity to ask questions and all questions answered Thank you for allowing me to participate in his care Medications: New omeprazole 40 mg PO DAILY 30 caps 5RF K21.9 - Gastro-esophageal reflux disease without esophagitis Coding Level of Care Code Est Pt Level 3 (66023) Diagnoses Irritable bowel syndrome with both constipation and diarrhea K58.2 Irritable bowel syndrome type: with both diarrhea and constipation Gastroesophageal reflux disease, unspecified whether esophagitis present K21.9 Esophagitis presence: esophagitis presence not specified Postprandial diarrhea K52.9 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
[2023-11-21 13:54] VITALS: BP 134/76; PULSE 52; O2SAT 98; BMI 28.2
== END 2023-11-21 14:03 | disposition home or self-care (01) ==
PROVIDERS: PCP Internal Medicine Geriatric Medicine; Visit Provider Nurse Practitioner Family
DX: K58.2 Mixed irritable bowel syndrome (principal); K21.9 Gastro-esophageal reflux disease without esophagitis; K22.70 Barrett's esophagus without dysplasia
CPT/HCPCS: 99213

== ENCOUNTER → 2023-11-21 13:17 | Outpatient (BNVA) | payer OTHER, SELFPAY | PROVIDERS: PCP Internal Medicine Geriatric Medicine; Visit Provider Nurse Practitioner Family | DX: K58.2 Mixed irritable bowel syndrome (principal); K21.9 Gastro-esophageal reflux disease without esophagitis; K52.9 Noninfective gastroenteritis and colitis, unspecified; K22.70 Barrett's esophagus without dysplasia | CPT/HCPCS: 99212 ==

== ENCOUNTER 2024-02-16 12:17 | Outpatient (REF) | payer MEDICARE, SELFPAY ==
[2024-02-16 12:27] LABS: MANUAL DIFF FLAG NO
[2024-02-16 12:33] LABS: Basophils Percent Auto 0.8 % (0-2); Eosinophils Percent Auto 0.8 % (0-4); Hemoglobin 14.7 g/dl (14.0-18.0); Imm Gran Abs Auto 0.02 X10*3/uL (0.00-0.03); Imm Gran Pct Auto 0.6 % (0.0-0.4); Lymphocytes Absolute Auto 1.3 X10*3/uL (1.2-4.9); Mean Corpuscular HGB Conc 32.7 g/dl (31.0-36.0); Mean Corpuscular Hemoglobin 29.3 pg (27.0-33.0); Mean Corpuscular Volume 89.8 fL (80.0-98.0); Mean Platelet Volume 9.4 fL (9.4-12.4); Monocytes Absolute Auto 0.5 X10*3/uL (0.1-1.2); Monocytes Percent Auto 14.5 % (2-11); Neutrophils Absolute Auto 1.7 x10*3/uL (2.0-8.3); Neutrophils Percent Auto 47.3 % (45-73); Platelet Count 171 X10*3/uL (160-400); Red Blood Count 5.01 X10*6/uL (4.60-5.80); Red Cell Distribution Width 13.5 % (11.0-16.0); White Blood Count 3.6 X10*3/uL (4.8-10.8)
[2024-02-16 12:52] LABS: Alanine Aminotransferase 22 U/L (0-40); Albumin Level 4.1 g/dL (3.5-5.0); Alkaline Phosphatase 102 U/L (39-117); Anion Gap 11 (12-20); Aspartate Amino Transferase 20 U/L (5-37); Bilirubin Total 0.8 mg/dL (0.0-1.0); Blood Urea Nitrogen 11 mg/dL (9-16); Calcium 10.6 mg/dL (8.4-10.2); Carbon Dioxide 26 mmol/L (22-29); Chloride 105 mmol/L (96-108); Cholesterol 197 mg/dL (<200); Estimated Glomerular Filt Rate > 60; Glucose Random 94 mg/dL (60-115); HDL Cholesterol 48 mg/dL (>40); LDL Cholesterol Calculated 134 mg/dL (<100); Sodium 137 mmol/L (135-145); Total Protein 7.7 g/dL (6.5-8.0); Triglycerides 78 mg/dL (<150)
== END 2024-02-16 12:18 | disposition home or self-care (01) ==
LOC: HO.LAB 12:17
PROVIDERS: PCP Internal Medicine Geriatric Medicine; Visit Provider Internal Medicine Geriatric Medicine
DX: I10 Essential (primary) hypertension (principal)
CPT/HCPCS: 36415; 80053; 80061; 85025

== ENCOUNTER 2024-03-26 12:20 | Outpatient (AMB) | payer MEDICARE, SELFPAY ==
[2024-03-26 12:53] VITALS: BP 156/82; PULSE 66; O2SAT 98; BMI 29.1
--- NOTE | 2024-03-26 12:53 | A.OFFVIS_ITS ---
Vital Signs 03/26/24 12:53 Height 5 ft 11 in Weight 208 lb 8.917 oz BMI 29.1 BP 156/82 H Blood Pressure Location Rt brachial Position Sitting Pulse 66 Pulse Source Pulse Oximeter Pulse Oximetry (%) 98 Oxygen Delivery Method Room Air Intake Visit Reasons: 4 month follow up Intake Note: PRESCRIPTIONS LAST GENERATED omeprazole 40 mg capsule,delayed release?40 mg PO DAILY 30 caps 5RF Brenda Huitron D 11/21/23 14:00 (Transmitted) Pt still taking medication without difficulty. Relevant Flags or Indicators ? Requires Day Care Provider? Vega Pina presents in office today for a scheduled 4 mos FUV. CC; Pt recently had labs drawn per PCP. Meds as above. ? Relevant GI Sx as reported per pt? Reflux ? Abdominal Pain - Centralized to the umbilical area. Pt states it is worse in the morning. ? Hx of any recent surgeries? 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 Continue avoiding dietary triggers and late night snacking. Staying upright for minimum 3 hours after meals discussed with patient. Patient will continue taking Senokot. Increase fluid intake and activity to promote better bowel motility. Increase fiber intake. Follow-up in 4 months, sooner on as needed basis. Patient is agreeable to this plan and verbalizes understanding of instructions. She was given the opportunity to ask questions and all questions answered ? Thank you for allowing me to participate in his care Medications New omeprazole 40 mg PO DAILY 30 caps 5RF K21.9 TODAY'S VISIT Patient is here today for follow-up. Patient reports that he has been feeling much better, however occasionally he will continue to have epigastric pain at night time. Patient denies eating late at night, however he does reports to have sometimes fruits like up post, pears at night time. Wakes up with occasional epigastric pain. Denies any nausea or vomiting. Denies any dyspepsia, dysphagia or odynophagia. Patient reports that he is moving his bowels better, feels like he empties them completely. Currently is taking senna 2 tablets with Colace. Denies melena, hematochezia, unintentional weight loss or ribbon like stools. [facility] Medical History Palpitations SVT (supraventricular tachycardia) PVC's (premature ventricular contractions) Surgical History History of cholecystectomy Hx of endoscopy Hx of colonoscopy S/P ablation of ventricular arrhythmia (~2007) Family History Father CVD (cardiovascular disease) Mother No problems noted. Social History Patient Tobacco Use Status: Never used Tobacco Review of Systems Const Denies weight gain and Denies weight loss ENT Reports no additional complaints, Denies dysphagia and Denies odynophagia Card Reports no additional complaints Resp Reports no additional complaints GI Reports abdominal pain (Epigastric), Denies belching, Denies melena, Denies bloating, Denies change in bowel habits, Denies dysphagia, Denies excessive flatus, Denies dyspepsia, Denies heartburn, Denies diarrhea, Denies loose stools, Denies nausea, Denies odynophagia and Denies vomiting Reports no additional complaints Musc Reports no additional complaints Neuro Reports no additional complaints Psych Reports no additional complaints Endo Reports no additional complaints Physical Exam Vital Signs: Last Vital Signs Pulse 66 03/26/24 12:53 BP 156/82 H 03/26/24 12:53 Pulse Ox 98 03/26/24 12:53 Oxygen Delivery Method Room Air 03/26/24 12:53 BMI result Body Mass Index 29.1 Const General: healthy appearing, no acute distress and well developed Nutritional Appearance: well nourished Orientation/consciousness: patient oriented x3 Resp Effort & Inspection: normal respiratory effort, able to speak in complete sentences, no tracheal deviation and symmetric chest movement Auscultation: clear to auscultation bilaterally Cardio Rate: regular rate GI Inspection: Yes normal to inspection and No distended Palpation (GI): Soft to palpation, not firm, nontender and No hepatosplenomegaly present Auscultation: normal bowel sounds General: Yes no CVA tenderness Back/Spine/Pelvis Back: no CVA tenderness Skin General skin exam: elasticity normal, turgor normal and dry skin Neuro General: patient oriented x3 Psych Appearance: grossly normal Mental Status: mental status grossly normal Assessment & Plan Assessment & Plan (1) IBS (irritable bowel syndrome): Code(s): K58.9 - Irritable bowel syndrome, unspecified Qualifiers: Irritable bowel syndrome type: with constipation Qualified Code(s): K58.1 - Irritable bowel syndrome with constipation (2) GERD (gastroesophageal reflux disease): Code(s): K21.9 - Gastro-esophageal reflux disease without esophagitis Qualifiers: Esophagitis presence: without esophagitis Qualified Code(s): K21.9 - Gastro-esophageal reflux disease without esophagitis (3) Postprandial diarrhea: Code(s): K52.9 - Noninfective gastroenteritis and colitis, unspecified (4) 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 Will add famotidine at bedtime. Patient was encouraged to avoid dietary triggers and eating late at night. Discussed with patient low FODMAP diet. List of food recommended as well as list of food to avoid given to patient. Continue senna and docusate sodium regimen. Increase fluid intake and activity to promote better bowel motility. Follow-up in the office in 6 months, sooner on as needed basis. He is agreeable to this plan and verbalizes understanding of instructions. He was given the opportunity to ask questions and all questions answered. Thank you for allowing me to participate in his care Medications: New famotidine (Pepcid) 20 mg PO BEDTIME 90 tabs 3RF K21.9 - Gastro-esophageal reflux disease without esophagitis Refilled sennosides (Natural Senna Laxative) 17.2 mg (2 x 8.6 mg) PO BEDTIME 90 tabs 3RF constipation K59.00 - Constipation, unspecified omeprazole 40 mg PO DAILY 30 caps 5RF K21.9 - Gastro-esophageal reflux disease without esophagitis docusate sodium 100 mg PO BEDTIME 30 caps 3RF K59.00 - Constipation, unspecified Discontinued famotidine Discontinued Reason: Doctor's Order 40 mg PO BEDTIME 30 tabs 3RF K21.9 - Gastro-esophageal reflux disease without esophagitis Coding Level of Care Code Est Pt Level 4 (80945) Complex EM visit Add On G2211 Diagnoses Irritable bowel syndrome with constipation K58.1 Irritable bowel syndrome type: with constipation Gastroesophageal reflux disease without esophagitis K21.9 Esophagitis presence: without esophagitis Postprandial diarrhea K52.9 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
== END 2024-03-26 13:45 | disposition home or self-care (01) ==
PROVIDERS: PCP Internal Medicine Geriatric Medicine; Visit Provider Nurse Practitioner Family
DX: K58.2 Mixed irritable bowel syndrome (principal); K21.9 Gastro-esophageal reflux disease without esophagitis; K22.70 Barrett's esophagus without dysplasia
CPT/HCPCS: 99214; G2211

== ENCOUNTER → 2024-03-26 12:20 | Outpatient (BNVA) | payer MEDICARE, SELFPAY | PROVIDERS: PCP Internal Medicine Geriatric Medicine; Visit Provider Nurse Practitioner Family | DX: K58.1 Irritable bowel syndrome with constipation (principal); K21.9 Gastro-esophageal reflux disease without esophagitis; K52.9 Noninfective gastroenteritis and colitis, unspecified; K22.70 Barrett's esophagus without dysplasia | CPT/HCPCS: 99212 ==

== ENCOUNTER 2024-06-21 12:31 | Outpatient (REF) | payer MEDICARE, SELFPAY ==
[2024-06-21 15:12] LABS: CT PCR NOT DETECTED (Not Detect.); NG PCR NOT DETECTED (Not Detect.)
[2024-06-22 09:58] LABS: HIV AB/AG Nonreactive (Nonreactive); HIV Num 1 0.05 S/CO (0.00-0.99); ~HepC Num1 0.27 S/CO (0.00-0.79); ~Hepatitis C Antibody Nonreactive (Nonreactive)
[2024-06-23 09:52] LABS: RPR Rapid Plasma Reagin NON-REACTIVE (NON-REACTIVE)
== END 2024-06-21 12:32 | disposition home or self-care (01) ==
LOC: HO.LAB 12:31
PROVIDERS: PCP Internal Medicine Geriatric Medicine; Visit Provider Internal Medicine Geriatric Medicine
DX: Z11.3 Encounter for screening for infections with a predominantly sexual mode of transmission (principal)
CPT/HCPCS: 86592; 86803; 87389; 87491; 87591

== ENCOUNTER 2024-08-23 03:38 | Emergency (ER) | payer MEDICARE, SELFPAY ==
--- NOTE | 2024-08-23 | ECG_ITS ---
Test Reason : tachycardia Blood Pressure : */* mmHG Vent. Rate : 123 BPM Atrial Rate : 123 BPM P-R Int : 184 ms QRS Dur : 86 ms QT Int : 298 ms P-R-T Axes : * -21 1 degrees QTcB Int : 426 ms Undetermined rhythm Abnormal ECG When compared with ECG of 21-May-2023 22:34, Vent. rate has increased by 51 bpm Referred By: Generic ED Physician Electronically Signed By: LILIANA WEBSTER
--- NOTE | ~2024-08-23 | CT_ITS ---
CLINICAL HISTORY: New onset headache CT head without contrast Comparison: None Findings: There is age-appropriate atrophy. The size and shape of the ventricular system is within normal limits for degree of atrophy. Yccy-ee-lwzwoivz areas of low-attenuation are identified within the periventricular and deep white matter. No midline shift or mass effect. No intracranial hemorrhage. Lucent lesion within the anterior right frontal bone. The appearance suggests that this is related to an arachnoid granulation or prominent vascular channel. Although there is marked thinning of the outer table of the calvarium at that level, no aggressive periosteal reaction is identified. IMPRESSION: 1. No acute intracranial findings. 2. 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 Correlation with any known primary malignancy is suggested. This document has been electronically signed by: Noah Weaver MD on 08/23/2024 06:26:14
--- NOTE | ~2024-08-23 | XR_ITS ---
CLINICAL HISTORY: sob 1 view chest x-ray Comparison: None Findings: The lungs are clear. Heart size is normal. No acute fracture. IMPRESSION: 1. No acute findings. This document has been electronically signed by: Noah Weaver MD on 08/23/2024 06:12:41
[2024-08-23 03:41] VITALS: BP 137/77; PULSE 125; RESP 18; TEMP 37.1; O2SAT 97; BMI 29.1
[2024-08-23 04:00] LABS: MANUAL DIFF FLAG NO
[2024-08-23 04:01] VITALS: BP 128/65; PULSE 123; RESP 22; TEMP 37.6; O2SAT 96
[2024-08-23 04:01] LABS: Basophils Percent Auto 0.4 % (0-2); Hemoglobin 13.4 g/dl (14.0-18.0); Imm Gran Abs Auto 0.02 X10*3/uL (0.00-0.03); Imm Gran Pct Auto 0.8 % (0.0-0.4); Lymphocytes Absolute Auto 0.5 X10*3/uL (1.2-4.9); Lymphocytes Percent Auto 18.7 % (20-40); Mean Corpuscular HGB Conc 33.5 g/dl (31.0-36.0); Mean Corpuscular Hemoglobin 28.8 pg (27.0-33.0); Mean Platelet Volume 9.3 fL (9.4-12.4); Monocytes Absolute Auto 0.3 X10*3/uL (0.1-1.2); Monocytes Percent Auto 11.5 % (2-11); Neutrophils Absolute Auto 1.8 x10*3/uL (2.0-8.3); Neutrophils Percent Auto 68.6 % (45-73); Platelet Count 126 X10*3/uL (160-400); Red Blood Count 4.65 X10*6/uL (4.60-5.80); Red Cell Distribution Width 13.3 % (11.0-16.0); White Blood Count 2.6 X10*3/uL (4.8-10.8)
--- NOTE | 2024-08-23 04:12 | ED_ITS ---
HPI - Headache General Chief Complaint: Headache Stated Complaint: Headache Time Seen by Provider: 08/23/24 04:12 Source: patient Mode of arrival: ambulatory Limitations: no limitations History of Present Illness ED Provider: HPI Narrative: Patient comes here for nonspecific diffuse headache for last 2 days slight nausea no vomiting no light sensitivity no fever no chills no recent head injuries Related Data Home Medications ?Medication ?Instructions ?Recorded ?Confirmed nabumetone 750 mg tablet 750 mg PO BID 04/24/20 04/15/23 tadalafil 20 mg tablet 20 mg PO DAILY PRN Erectile 04/24/20 04/15/23 Dysfunction tramadol 50 mg tablet 50 mg PO Q12H PRN Pain 04/24/20 04/15/23 cholecalciferol (vitamin D3) 50 50 mcg PO DAILY 01/14/23 04/15/23 mcg (2,000 unit) tablet diclofenac sodium 1 % topical gel 2 g topical BID 05/07/23 multivitamin 1 tab PO DAILY 05/07/23 Previous Rx's ?Medication ?Instructions ?Recorded metoprolol succinate 100 mg 100 mg PO DAILY #90 tabs 04/22/22 tablet,extended release 24 hr hydrocortisone 2.5 % topical cream 1 appl [place] BID-QID PRN hemorrhoids 05/07/23 with perineal applicator #30 grams (Proctosol HC) wheat dextrin 3 gram/3.5 gram oral 1 packet PO DAILY #28 ea 05/07/23 powder packet (Benefiber Clear Sugar Free(dextrin)) acetaminophen 500 mg tablet 500 mg PO Q6H PRN fever or pain 05/11/23 (Tylenol Extra Strength) #14 tabs cyclobenzaprine 5 mg tablet 5 mg PO TID PRN muscle spasm #10 07/22/23 tabs lidocaine 5 % topical patch 1 patch topical DAILY #15 ea 07/22/23 docusate sodium 100 mg capsule 100 mg PO BEDTIME #30 caps 03/26/24 famotidine 20 mg tablet (Pepcid) 20 mg PO BEDTIME #90 tabs 03/26/24 omeprazole 40 mg capsule,delayed 40 mg PO DAILY #30 caps 03/26/24 release sennosides 8.6 mg tablet (Natural 17.2 mg (2 x 8.6 mg) PO BEDTIME 03/26/24 Senna Laxative) constipation #90 tabs Allergies Allergy/AdvReac Type Severity Reaction Status Date / Time No Known Allergies Allergy Verified 08/23/24 03:43 Review of Systems 2 Review of Systems: Yes all other systems are reviewed and are negative [facility] Past Medical History Medical History Palpitations SVT (supraventricular tachycardia) PVC's (premature ventricular contractions) Surgical History History of cholecystectomy Hx of endoscopy Hx of colonoscopy S/P ablation of ventricular arrhythmia (~2007) Family History Family History Father CVD (cardiovascular disease) Mother No problems noted. Social History Social History Patient Tobacco Use Status: Never used Tobacco Smoked in Last 30 Days: No Use of substances other than those prescribed or required for medical reasons: No Advance Directives: No Advance Directives Information Provided: Yes Physical Exam 2 Vital Signs: Vital Signs: Last Vital Signs Temp 98.4 F 08/23/24 06:52 Pulse 55 08/23/24 06:52 Resp 13 08/23/24 06:52 BP 94/61 08/23/24 06:52 Pulse Ox 99 08/23/24 06:52 O2 Del Method Room Air 08/23/24 06:52 BMI result Body Mass Index 29.1 Appearance: Alert. Oriented X3. No acute distress. Eyes: PERRLA, No Nystagmus ENT: Pharynx normal. Oral Mucosa moist Neck: Normal inspection. Neck supple. CVS: Normal heart rate and rhythm. Pulses normal. Respiratory: No respiratory distress. Equal air entry bilateral, no wheezing/rales/rhonchi Abdomen: Soft and nontender. Bowel sounds are present, no mass palpable, no CVA tenderness Skin: Skin warm and dry. Normal skin color. Normal skin turgor. Extremities: No lower extremity edema. No calf tenderness Neuro: Oriented X 3. No motor deficit. No sensory deficit.No cerebellar signs , cranial nerves II-XII intact Medical Decision Making Medical Decision Making MDM Narrative: Patient nonspecific headache CT scan of the head is negative for acute patient felt better after Fioricet CT scan of the head is negative for acute likely has a migraine headache Lab Data MDM Lab Attestation statement: I reviewed the patient's lab results. 08/23/24 03:55 08/23/24 03:55 Labs: Lab Results 08/23/24 Range/Units 03:55 WBC 2.6 L (4.8-10.8) X10*3/uL RBC 4.65 (4.60-5.80) X10*6/uL Hgb 13.4 L (14.0-18.0) g/dl Hct 40.0 L (42.0-52.0) % MCV 86.0 (80.0-98.0) fL MCH 28.8 (27.0-33.0) pg MCHC 33.5 (31.0-36.0) g/dl RDW 13.3 (11.0-16.0) % Plt Count 126 L D (160-400) X10*3/uL MPV 9.3 L (9.4-12.4) fL Immature Gran % (Auto) 0.8 H (0.0-0.4) % Neut % (Auto) 68.6 (45-73) % Lymph % (Auto) 18.7 L (20-40) % [place] % (Auto) 11.5 H (2-11) % Eos % (Auto) 0.0 (0-4) % Baso % (Auto) 0.4 (0-2) % Lymph # (Auto) 0.5 L (1.2-4.9) X10*3/uL [place] # (Auto) 0.3 (0.1-1.2) X10*3/uL Eos # (Auto) 0.0 (0.0-0.4) X10*3/uL Baso # (Auto) 0.0 (0.0-0.2) X10*3/uL Abs Immat Gran (auto) 0.02 (0.00-0.03) X10*3/uL Absolute Neuts (auto) 1.8 L (2.0-8.3) x10*3/uL Absolute Nucleated RBC 0.000 (0.0-0.012) X10*3/uL Nucleated RBC % (auto) 0.0 (0.0-0.2) /100WBC Sodium 135 (135-145) mmol/L Potassium 4.3 (3.3-5.1) mmol/L Chloride 106 (96-108) mmol/L Carbon Dioxide 20 L (22-29) mmol/L Anion Gap 13 (12-20) BUN 17 H (9-16) mg/dL Creatinine 1.13 (0.5-1.4) mg/dL Estim Creat Clear Calc 61.2 Estimated GFR > 60 Random Glucose 99 (60-115) mg/dL Calcium 9.2 D (8.4-10.2) mg/dL Total Bilirubin 0.7 (0.0-1.0) mg/dL AST 46 H (5-37) U/L ALT 33 (0-40) U/L Alkaline Phosphatase 122 H (39-117) U/L Total Protein 7.0 (6.5-8.0) g/dL Albumin 3.7 (3.5-5.0) g/dL Discharge Plan Discharge Clinical Impression: Headache Patient Disposition: Home, Self-Care Instructions: General Headache (ED) Additional Instructions: Take Tylenol/Motrin for headache Follow with your PCP Prescriptions: No Action metoprolol succinate 100 mg tablet extended release 24 hr 100 mg PO DAILY Qty: 90 0RF Rx Instructions: Overdue for appt. Please call [phone] to schedule appt for 2022 so we can continue refilling future refills. acetaminophen [Tylenol Extra Strength] 500 mg tablet 500 mg PO Q6H PRN (Reason: fever or pain) Qty: 14 0RF cyclobenzaprine 5 mg tablet 5 mg PO TID PRN (Reason: muscle spasm) Qty: 10 0RF lidocaine 5 % adhesive patch,medicated 1 patch topical DAILY Qty: 15 0RF Rx Instructions: leave on most painful area for up to 12 hrs tramadol 50 mg tablet 50 mg PO Q12H PRN (Reason: Pain) nabumetone 750 mg tablet 750 mg PO BID tadalafil 20 mg tablet 20 mg PO DAILY PRN (Reason: Erectile Dysfunction) multivitamin Tablet 1 tab PO DAILY diclofenac sodium 1 % gel 2 g topical BID Benefiber Clear SF (dextrin) 3 gram/3.5 gram powder in packet 1 packet PO DAILY Qty: 28 5RF Rx Instructions: mix into at least 4 oz water or juice before administering hydrocortisone [Proctosol HC] 2.5 % cream with perineal applicator 1 appl TX BID-QID PRN (Reason: hemorrhoids) Qty: 30 2RF cholecalciferol (vitamin D3) 50 mcg (2,000 unit) tablet 50 mcg PO DAILY sennosides [Natural Senna Laxative] 8.6 mg tablet 17.2 mg PO BEDTIME Qty: 90 3RF docusate sodium 100 mg capsule 100 mg PO BEDTIME Qty: 30 3RF omeprazole 40 mg capsule,delayed release(DR/EC) 40 mg PO DAILY Qty: 30 5RF famotidine [Pepcid] 20 mg tablet 20 mg PO BEDTIME Qty: 90 3RF Interventions: ED Discharge Assessment Last Done: 08/23/24 06:52 Discharge Date/Time: 08/23/24 06:52 Print Language: Macedonian
[2024-08-23 04:25] LABS: Alanine Aminotransferase 33 U/L (0-40); Albumin Level 3.7 g/dL (3.5-5.0); Alkaline Phosphatase 122 U/L (39-117); Anion Gap 13 (12-20); Aspartate Amino Transferase 46 U/L (5-37); Bilirubin Total 0.7 mg/dL (0.0-1.0); Blood Urea Nitrogen 17 mg/dL (9-16); Calcium 9.2 mg/dL (8.4-10.2); Carbon Dioxide 20 mmol/L (22-29); Chloride 106 mmol/L (96-108); Creatinine Clr Calc Pharmacy 61.2; Estimated Glomerular Filt Rate > 60; Glucose Random 99 mg/dL (60-115); Potassium 4.3 mmol/L (3.3-5.1); Sodium 135 mmol/L (135-145)
[2024-08-23 06:49] VITALS: BP 94/61; PULSE 55; RESP 13; TEMP 36.9; O2SAT 99
[2024-08-23 06:52] VITALS: BP 94/61; PULSE 55; RESP 13; TEMP 36.9; O2SAT 99
== END 2024-08-23 06:52 | disposition home or self-care (01) ==
PROVIDERS: Emergency Provider Internal Medicine; PCP Internal Medicine Geriatric Medicine
DX: R51.9 Headache, unspecified (principal); R11.0 Nausea; R00.0 Tachycardia, unspecified; R94.31 Abnormal electrocardiogram [ECG] [EKG]; Z79.899 Other long term (current) drug therapy
CPT/HCPCS: 36415; 70450; 71045; 80053; 85025; 93005; 99284; 99285

== ENCOUNTER → 2024-08-23 03:50 | Outpatient (BNV) | payer MEDICARE, SELFPAY | PROVIDERS: Emergency Provider Internal Medicine; PCP Internal Medicine Geriatric Medicine; Visit Provider Internal Medicine | DX: R94.31 Abnormal electrocardiogram [ECG] [EKG] (principal); R00.0 Tachycardia, unspecified | CPT/HCPCS: 93010 ==

== ENCOUNTER → 2024-08-23 04:24 | Outpatient (BNV) | payer MEDICARE, SELFPAY | PROVIDERS: Emergency Provider Internal Medicine; PCP Internal Medicine Geriatric Medicine; Visit Provider Radiology Diagnostic Radiology | DX: R50.9 Fever, unspecified (principal); R06.02 Shortness of breath | CPT/HCPCS: 70450; 71045 ==

== ENCOUNTER 2024-09-20 09:54 | Outpatient (AMB) | payer MEDICARE, SELFPAY ==
--- NOTE | 2024-09-20 09:59 | A.OFFVIS_ITS ---
Vital Signs 09/20/24 10:03 Height 5 ft 10 in Weight 205 lb BMI 29.4 BP 138/67 Blood Pressure Location Lt brachial Position Sitting Pulse 58 Pulse Oximetry (%) 97 Oxygen Delivery Method Room Air Intake Visit Reasons: 6 months f/u GERD, CIC Intake Note: Patient 6 month follow for GERD and CIC. Patient cc: gassy, acid reflux, constipation on and off, poor appetite, and always tired. 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 Will add famotidine at bedtime. Patient was encouraged to avoid dietary triggers and eating late at night. Discussed with patient low FODMAP diet. List of food recommended as well as list of food to avoid given to patient. Continue senna and docusate sodium regimen. Increase fluid intake and activity to promote better bowel motility. Follow-up in the office in 6 months, sooner on as needed basis. He is agreeable to this plan and verbalizes understanding of instructions. He was given the opportunity to ask questions and all questions answered. ? Thank you for allowing me to participate in his care Medications New famotidine (Pepcid) 20 mg PO BEDTIME 90 tabs 3RF K21.9 Refilled sennosides (Natural Senna Laxative) 17.2 mg (2 x 8.6 mg) PO BEDTIME 90 tabs 3RF constipation K59.00 omeprazole 40 mg PO DAILY 30 caps 5RF K21.9 docusate sodium 100 mg PO BEDTIME 30 caps 3RF K59.00 Discontinued famotidine Discontinued Reason: Doctor's Order 40 mg PO BEDTIME 30 tabs 3RF K21.9 TODAY'S VISIT: Patient is here today for follow-up. Patient reports that since last time he was seen in the office he is feeling better. Significant change in his bowel movements. Patient reports that he is taking Senokot daily and is able to have a bowel movement without any issues. He is taking PPI in the morning and famotidine at bedtime and reports significant improvement. Patient is eating only couple times a day, avoids certain foods. Eats mostly protein. Patient reports that he goes to the gym few times a week. Patient reports he no longer feels bloated. Patient denies dyspepsia, dysphagia or odynophagia. Denies melena, hematochezia, unintentional weight loss or ribbon like stools. [facility] Medical History Palpitations SVT (supraventricular tachycardia) PVC's (premature ventricular contractions) Surgical History History of cholecystectomy Hx of endoscopy Hx of colonoscopy S/P ablation of ventricular arrhythmia (~2007) Family History Father CVD (cardiovascular disease) Mother No problems noted. Social History (Updated 09/20/24 @ 10:00 by Suha Velasquez) Household Members: Family Alcohol intake: never Patient Tobacco Use Status: Never used Tobacco Review of Systems Const Denies weight gain and Denies weight loss ENT Reports no additional complaints, Denies dysphagia and Denies odynophagia Card Reports no additional complaints Resp Reports no additional complaints GI Reports abdominal pain (Epigastric), Denies belching, Denies melena, Denies bloating, Denies change in bowel habits, Denies dysphagia, Denies excessive flatus, Denies dyspepsia, Denies heartburn, Denies diarrhea, Denies loose stools, Denies nausea, Denies odynophagia and Denies vomiting Reports no additional complaints Musc Reports no additional complaints Neuro Reports no additional complaints Psych Reports no additional complaints Endo Reports no additional complaints Physical Exam Vital Signs: Last Vital Signs Pulse 58 09/20/24 10:03 BP 138/67 09/20/24 10:03 Pulse Ox 97 09/20/24 10:03 Oxygen Delivery Method Room Air 09/20/24 10:03 BMI result Body Mass Index 29.4 Const General: healthy appearing, no acute distress and well developed Nutritional Appearance: well nourished Orientation/consciousness: patient oriented x3 Resp Effort & Inspection: normal respiratory effort, able to speak in complete sentences, no tracheal deviation and symmetric chest movement Auscultation: clear to auscultation bilaterally Cardio Rate: regular rate GI Inspection: Yes normal to inspection and No distended Palpation (GI): Soft to palpation, not firm, nontender and No hepatosplenomegaly present Auscultation: normal bowel sounds General: Yes no CVA tenderness Back/Spine/Pelvis Back: no CVA tenderness Skin General skin exam: elasticity normal, turgor normal and dry skin Neuro General: patient oriented x3 Psych Appearance: grossly normal Mental Status: mental status grossly normal Assessment & Plan Assessment & Plan (1) IBS (irritable bowel syndrome): Code(s): K58.9 - Irritable bowel syndrome, unspecified Qualifiers: Irritable bowel syndrome type: with constipation Qualified Code(s): K58.1 - Irritable bowel syndrome with constipation (2) GERD (gastroesophageal reflux disease): Code(s): K21.9 - Gastro-esophageal reflux disease without esophagitis Qualifiers: Esophagitis presence: esophagitis presence not specified Qualified Code(s): K21.9 - Gastro-esophageal reflux disease without esophagitis (3) Postprandial diarrhea: Code(s): K52.9 - Noninfective gastroenteritis and colitis, unspecified (4) 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 Avoid dietary triggers and late night snacking. Staying upright for minimum 3 hours after meals discussed with patient. He will continue taking Senokot. Continue low FODMAP diet. Continue to exercise. Patient had normal exam overall he is feeling better. He will follow-up in 6 months, sooner on as needed basis. He is agreeable to this plan and verbalizes understanding of instructions. He was given the opportunity to ask questions and all questions answered. Thank you for allowing me to participate in his care Medications: Refilled omeprazole 40 mg PO DAILY 90 caps 2RF K21.9 - Gastro-esophageal reflux disease without esophagitis sennosides (Natural Senna Laxative) 17.2 mg (2 x 8.6 mg) PO BEDTIME 90 tabs 3RF constipation K59.00 - Constipation, unspecified Coding Level of Care Code Est Pt Level 3 (20841) Diagnoses Irritable bowel syndrome with constipation K58.1 Irritable bowel syndrome type: with constipation Gastroesophageal reflux disease, unspecified whether esophagitis present K21.9 Esophagitis presence: esophagitis presence not specified Postprandial diarrhea K52.9 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
[2024-09-20 10:03] VITALS: BP 138/67; PULSE 58; O2SAT 97; BMI 29.4
--- OUTSIDE RECORDS SUMMARY | 2024-09-20 10:15 | XMS_ITS | Encounter Summary ---
Author Organization [employer] Address [address] [place] [address] Care Team Providers Care Hat And Cap Drying Room Attendant Name Role Phone Name, Amado FONG Primary Care Provider [phone] Reason for Visit * Reason Comments Med Refill Encounter Details Date Type Department Care Team ([facility] st Contact Info) Description 04/01/2023 Refill [facility] [address] [place], [place] [id number] Name, MD Amado [address] [place] [address] Heartburn Social History Tobacco Use Types Packs/Day Years Used Date Smoking Tobacco: Never Passive Smoke Exposure: Never Smokeless Tobacco: Never Alcohol Use Standard Drinks/Week Comments Never 0 (1 standard drink = 0.6 oz pur e alcohol) Depression Answer Date Recorded Patient Health Questionnaire-9 Score 0 11/04/2022 Housing Stability Answer Date Recorded What is your housing situation today? I have susan zhou 02/19/[address] you li ve. Do you have problems with any of the following? None of the above 02/19/2023 Food Insecurity Answer Date Recorded Within the past 12 months, y ou worried that your food would run out before you got money to buy more: Never True 02/19/2023 Within the past 12 months,th e food you bought just didn't last and you didn't have enough money to get more: Never True Transportation Answer Date Recorded In the past 12 months, has l ack of transportation kept you from medical appts, meetings, work or from getting things needed for daily living? No 02/19/2023 Utilities Answer Date Recorded In the past 12 months, has t he electric, gas, oil or water company threatened to shut off services in your home? No 02/19/2023 Depression Answer Date Recorded Patient Health Questionnaire-2 Score 0 11/04/2022 Sex and Gender Information Value Date Recorded Sex Assigned at Male 03/04/2022 10:25 AM EDT Legal Sex Male 10:25 AM EDT Gender Identity Male 03/04/2022 10:25 AM EDT Sexual Orientation Straight 03/04/2022 10 :25 AM EDT documented as of this encounter Plan of Treatment Not on file documented as of this encounter Visit Diagnoses Diagnosis Heartburn documented in this encounter Additional Health Concerns Assessment Noted Time PHQ-9 Depression Total Score: 0 11/05/19 23 10:06 AM EDT documented as of this encounter Care Teams Hat And Cap Drying Room Attendant Relationship Specialty Start Date End Date Name, MD Amado [address] [place] [address] PCP - General Family Medicine 12/03/16 documented as of this encounter
--- OUTSIDE RECORDS SUMMARY | 2024-09-20 10:15 | XMS_ITS | Clinical Summary ---
Author Organization [employer] Address [address] [place] [address] [address] [place] [address] Care Team Providers Care Pheresis Nurse Name Role Phone Name, Amado FONG Primary Care Provider [phone] Allergies No known active allergies Medications metoprolol succinate XL (Toprol-XL) 100 MG 24 hr tablet Take 100 mg by mouth Once per day. 10/02/19 23 Active esomeprazole (NexIUM) [address] capsule Take 40 mg by mouth Once per day. 01/09/20 23 Active Bisacodyl EC 5 MG EC tablet 01/29/20 23 Active aspirin 81 MG chewable tablet Chew. Active cholecalcifer ol (Vitamin D-3) 50 MCG (1999) tablet TAKE 1 TABLET BY MOUTH EVERY DAY 90 tablet 1 06/30/19 24 Active Additional Information Patient not taking.Reported on 06/15/2024 Diclofenac Sodium 1 % gel APPLY 2 GRAMS TOPICALLY TO THE AFFECTED AREA(S) TWICE DAILY 100 g 3 07/21/19 24 Active Multiple Vitamin (One-Daily Multi-Vitamin ) tablet TAKE 1 TABLET BY MOUTH EVERY DAY WITH FOOD 90 tablet 3 06/15/19 25 Active tadalafil (Cialis) 20 MG tablet Take 1 tablet (20 mg) by mouth if needed each day for erectile dysfunction. 15 tablet 4 09/14/19 25 Active tadalafil (Cialis) 20 MG tablet Take 1 tablet (20 mg) by mouth if needed each day for erectile dysfunction. 15 tablet 4 06/15/19 25 025 Discontinued(Re order (will not trigger notification to Pharmacy)) Active Problems Problem Noted Date Diagnosed Date Hypertension 09/02/2023 Conjunctivitis 06/11/2023 06/11/2023 Contusion of rib 06/11/2023 06/11/2023 Impingement syndrome of right shoulder 06/11/2023 Microscopic hematuria 06/11/2023 06/11/2023 PVC's (premature ventricular contractions) 06/1106/11/2023 Nasal congestion 04/02/2023 Upper respiratory tract infection 04/02/2023 Assessment & Plan (04/02/2023 3:39 PM EST): -Symptoms consistent with viral URI- -COVID, FLU, RSV negative -cough suppressant rx sent to pharmacy -Increase fluid intake and get plenty of rest Salt water gargles -Return to [facility] or ER if develop fever or symptoms worsen or persist Abnormal MRI, lumbar spine 09/26/2022 SVT (supraventricular tachycardia) 09/26/2022 Overview (06/11/2023): h/o of transient post op afib after cholecystectomy Cholecystitis 09/26/2022 Chronic low back pain 09/26/2022 Heartburn 09/26/2022 History of cholecystectomy 09/26/2022 Numbness of lower limb 09/26/2022 Osteoarthritis 09/26/2022 Pain in throat 09/26/2022 Vitamin D deficiency 09/26/2022 Benign prostatic hyperplasia 03/03/2018 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 Palpitations 07/17/2017 Impotence 12/03/2016 Peripheral venous insufficiency 12/03/2016 Resolved Problems Problem Noted Date Diagnosed Date Resolved Date Chest tightness 06/11/2023 06/11/2023 06/11/2023 Onychomycosis 09/26/2022 11/04/2022 Encounters Date Type Department Care Team Description 09/13/2024 11:30 AM EDT Office Visit [facility] [address] [place] [address] Amado Booth MD Hypertension, unspecified type (Primary Dx) 09/13/2024 Travel 09/10/2024 Telephone [facility] [address] [place] [address] Amado Booth MD CHART PREP 09/06/2024 Patient Outreach [facility] [address] [place], [place] [id number] Name, MD Amado Pre-visit Planning ([facility] unable to reach, no voicemail. ) 08/23/2024 Orders Only GENERIC EXTERNAL DATA DEPARTMENT Provider, Generic External Data from Last 3 Months Immunizations Immunization Administration Dates Next Due Influenza High-dose Quadriva lent Preservative Free 02/07/2023,01/16/2022,02/07/2021 Influenza, High Dose Seasona l, Preservative Free 02/12/2024,05/11/2019,03/03/2018,02/07,01/17/2016,02/08/2015 Influenza, IIV3, injectable 04/30/2013,1 05/06/2011,01/30/2011,02/09,01/11/2009,03/19/2007 Influenza, seasonal, injecta ble, preservative free 04/25/2014 Ulysses SARS-CoV-2 Vaccination 06/23/2020 Pfizer Covid-19 Vaccine 12+ 04/11/2021, Pneumococcal Conjugate PCV 13 05/11/2019, 011 Pneumococcal Polysaccharide PPSV23 02/07,05/23/2014,04/25/2014,01/30 Td (adult), 5 Lf tetanus tox oid, preservative free, adsorbed 10/15/2012 Tdap 02/07/2023,10/15/2012,01/01/2005 Social History Tobacco Use Types Packs/Day Years Used Date Smoking Tobacco: Former Cigarettes Passive Smoke Exposure: Past Smokeless Tobacco: Never Tobacco Cessation:Counseling Given: Not Answered Alcohol Use Standard Drinks/Week Comments Never 0 (1 standard drink = 0.6 oz pur e alcohol) Alcohol Answer Date Recorded Frequency of Alcohol Consumption Not on file 01/26/2024 Average Number of Drinks Not on file 024 Frequency of Binge Drinking Not on file 01/04 Score 0 01/26/2024 Depression Answer Date Recorded Patient Health Questionnaire-9 Score 0 01/26/2024 Patient Health Questionnaire-9 Score 0 01/26/2024 Last PHQ-9: Questionnaire Data Not on file 0 01/26/2024 Housing Stability Answer Date Recorded What is your housing situation today? I have susan zhou 01/26/[address] you li ve. Do you have problems with any of the following? None of the above 01/26/2024 Food Insecurity Answer Date Recorded Within the past 12 months, y ou worried that your food would run out before you got money to buy more: Never True 01/26/2024 Within the past 12 months,th e food you bought just didn't last and you didn't have enough money to get more: Never True Transportation Answer Date Recorded In the past 12 months, has l ack of transportation kept you from medical appts, meetings, work or from getting things needed for daily living? No 01/26/2024 Utilities Answer Date Recorded In the past 12 months, has t he electric, gas, oil or water company threatened to shut off services in your home? No 01/26/2024 Depression Answer Date Recorded Patient Health Questionnaire-2 Score 0 01/26/2024 Internet Access Answer Date Recorded Internet Access Q1 No 01/26/2024 Internet Access Q2 Not on file 01/26/2024 Sex and Gender Information Value Date Recorded Sex Assigned at Male 03/04/2022 10:25 AM EDT Legal Sex Male 10:25 AM EDT Gender Identity Male 03/04/2022 10:25 AM EDT Sexual Orientation Straight 03/04/2022 10 :25 AM EDT Last Filed Vital Signs Vital Sign Reading Time Taken Comments Blood Pressure 135/78 09/13/2024 11:42 AM EDT Pulse 63 09/13/2024 11:26 AM EDT Temperature 36.6 ??C (97.9 ??F) 09/13/2024 11:26 AM E DT Respiratory Rate 16 09/13/2024 11:26 AM EDT Oxygen Saturation 95% 09/13/2024 11:26 AM EDT Inhaled Oxygen Concentration - - Weight 94 kg (207 lb 4 oz) 09/13/2024 11:26 AM E DT Height 177.8 cm (5' 10 ) 09/13/2024 11:26 AM EDT Body Mass Index 29.74 09/13/2024 11:26 AM EDT Plan of Treatment Health Maintenance Due Date Last Done Comments CT Colonography 1945 FIT DNA/Cologuard 1945 FIT 1945 FOBT 1945 Sigmoidoscopy 1945 Zoster Vaccines (1 of 2) 01/04/1994 RSV Patients and Patients Aged 60 years or older (1 - 1-dose 75+ series) 01/04/2019 COVID-19 Vaccine (5 - 2023- season) 2024 04/11/2021, 07/14/2020, 06/23/2020, Additional history exists Depression Screening 01/25/2025 01/26/2024, 01/26/20 24 SDOH Screening 01/25/2025 01/26/2024 Alcohol/Substance Use Screening 09/13/2025 09/13/2024 Tobacco Screening 09/13/2025 09/13/2024 Colonoscopy 04/15/2028 04/15/2023 Colorectal Cancer Screening 04/15/2028 Lipid Panel 02/15/2029 02/16/2024, 10/19/2021 DTaP/Tdap/Td Vaccines (5 - Td or Tdap) 02/07/2033 02/07/2023, 10/15/2012, 10/15/2012, Additional history exists Pneumococcal Vaccine: 50+ Years Completed 05/11/2019, 02/07/2017, 05/23/2014, Additional history exists Influenza Vaccine Completed 02/12/2024, , 01/16/2022, Additional history exists HIB Vaccines Aged Out No longer eligi ble based on patient's age to complete this topic HPV Vaccines Aged Out No longer eligi ble based on patient's age to complete this topic Hepatitis A Vaccines Aged Out No long er eligible based on patient's age to complete this topic Hepatitis B Vaccines Aged Out No long er eligible based on patient's age to complete this topic IPV Vaccines Aged Out No longer eligi ble based on patient's age to complete this topic Meningococcal B Vaccine Aged Out No l onger eligible based on patient's age to complete this topic Meningococcal Vaccine Aged Out No irene connie eligible based on patient's age to complete this topic RSV under 20 months Aged Out No longe r eligible based on patient's age to complete this topic Rotavirus Vaccines Aged Out No longer eligible based on patient's age to complete this topic Procedures Procedure Name Priority Date/Time Associated Diagnosis Comments CT HEAD WO CONTRAST Routine 08/23/2024 6 :26 AM EDT XR CHEST 1 VIEW Routine 08/23/2024 6:12 AM EDT COMPREHENSIVE METABOLIC PANEL Routine 08/23/2024 3:55 AM EDT CBC WITH AUTO DIFFERENTIAL Routine 08/23/2024 3:55 AM EDT LIPID PANEL, STANDARD Routine 02/16/2024 12:26 PM EDT Hypertension, unspecified type HM COLONOSCOPY Routine 04/15/2023 from Last 3 Months or Most Recently Relevant to Health Maintenance Results * CT Head w/o Contrast (08/23/2024 6:26 AM EDT) Anatomical Region Laterality Modality Head, Neck Computed Tomogra phy 08/23/2024 6:26 AM EDT Narrative 08/23/2024 6:28 AM EDT ? [facility] ?[address] ?[place] [address] ? CT Scan Report ? Signed ? Patient: Yovani Leo ?MR#: [id number] ? : 1945 ?Acct:[id number] ? Age/Sex: 79 / M ?ADM Date: 08/23/24 ? Loc: HO.ED ? Attending Dr: ? Ordering Physician: Sloan Meehan MD ?? Date of Service: 08/23/24 ?? Procedure(s): CT head/brain wo IV con ?? Accession Number(s): [id number] ? cc: Amado Booth MD; Sloan Meehan MD ? Report Number: ?? [id number]: Total DLP = ??776.00 mGy-cm ? CLINICAL HISTORY: New onset headache ? CT head without contrast ? Comparison: None ? Findings: ?? There is age-appropriate atrophy. ?? The size and shape of the ventricular system is within normal limits for ?? degree of atrophy. ?? Tmbm-wj-[id number] areas of low-attenuation are identified within the ?? periventricular and deep white matter. ?? No midline shift or mass effect. ?? No intracranial hemorrhage. ?? Lucent lesion within the anterior right frontal bone. The appearance ?? suggests that this is related to an arachnoid granulation or prominent ?? vascular channel. Although there is marked thinning of the outer table of ?? the calvarium at that level, no aggressive periosteal reaction is ?? identified. ? IMPRESSION: ?? 1. No acute intracranial findings. ?? 2. Lucent lesion within the anterior right frontal bone is likely a ?? arachnoid granulation or prominent vascular channel. Correlation with any ?? known primary malignancy is suggested. ? This document has been electronically signed by: Noah Weaver MD on ?? 08/23/2024 06:26:14 ? Dictated By: ?Noah Weaver MD ? Signed By: ?<Electronically signed by Noah Weaver MD in OV> ? 08/23/2427 ? DD/ 5 ? TD/TT: 08/23/24625 ? Cafeteria Clerk: ? Procedure Note Donotjoseinterpreter, Image - 08/23/[address] [place] [address] [address] Scan Report Signed Patient: Yovani LeoMR#: [id number] : 1945cct:[id number] Age/Sex: 79 / MADM Date: 08/23/24 Loc: HO.ED Attending Dr: Ordering Physician: Sloan Meehan MD Date of Service: 08/23/24 Procedure(s): CT head/brain wo IV con Accession Number(s): [id number] cc: Amado Booth MD; Sloan Meehan MD Report Number: [id number]: Total DLP = 776.00 mGy-cm CLINICAL HISTORY: New onset headache CT head without contrast Comparison: None Findings: There is age-appropriate atrophy. The size and shape of the ventricular system is within normal limits for degree of atrophy. Jlmt-mh-cjcvrbez areas of low-attenuation are identified within the periventricular and deep white matter. No midline shift or mass effect. No intracranial hemorrhage. Lucent lesion within the anterior right frontal bone. The appearance suggests that this is related to an arachnoid granulation or prominent vascular channel. Although there is marked thinning of the outer table of the calvarium at that level, no aggressive periosteal reaction is identified. IMPRESSION: 1. No acute intracranial findings. 2. 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 Correlation with any known primary malignancy is suggested. This document has been electronically signed by: Noah Weaver MD on 08/23/2024 06:26:14 Dictated By: Noah Weaver MD Signed By: <Electronically signed by Noah Weaver MD in OV> 08/23/24626 DD/ 5 TD/TT: 08/23/24625 Cafeteria Clerk: [facility] External Provider IMG CT PROCEDURES Edited Result - Final * XR Chest 1 View (08/23/2024 6:12 AM EDT) Anatomical Region Laterality Modality Chest Radiographic Geovanna ging 08/23/2024 6:12 AM EDT Narrative 08/23/2024 6:14 AM EDT ? [facility] ?[address] ?[place] [address] ?XRay Report ? Signed ? Patient: Felipa,Yovani ?MR#: [id number] ? : 1945 ?Acct:[id number] ? Age/Sex: 79 / M ?ADM Date: 08/23/24 ? Loc: HO.ED ? Attending Dr: ? Ordering Physician: Sloan Meehan MD ?? Date of Service: 08/23/24 ?? Procedure(s): XR chest 1V ?? Accession Number(s): [id number] ? cc: Amado Booth MD; Sloan Meehan MD ? CLINICAL HISTORY: sob ? 1 view chest x-ray ? Comparison: None ? Findings: ?? The lungs are clear. ?? Heart size is normal. ?? No acute fracture. ? IMPRESSION: ?? 1. No acute findings. ? This document has been electronically signed by: Noah Weaver MD on ?? 08/23/2024 06:12:41 ? Dictated By: ?Noah Weaver MD ? Signed By: ?<Electronically signed by Noah Weaver MD in OV> ? 08/23/24 0614 ? DD/ 0612 ? TD/TT: 08/23/24 0612 ? Cafeteria Clerk: ? Procedure Note Delfina Image - 08/23/[address] [address] XRay Report Signed Patient: Yovani LeoMR#: [id number] : 4Acct:[id number] Age/Sex: 79 / MADM Date: 08/23/24 Loc: .ED Attending Dr: Ordering Physician: Sloan Meehan MD Date of Service: 08/23/24 Procedure(s): XR chest 1V Accession Number(s): [id number] cc: Name,Amado FONG; Sloan Meehan MD CLINICAL HISTORY: sob 1 view chest x-ray Comparison: None Findings: The lungs are clear. Heart size is normal. No acute fracture. IMPRESSION: 1. No acute findings. This document has been electronically signed by: Noah Weaver MD on 08/23/2024 06:12:41 Dictated By: Noah Weaver MD Signed By: <Electronically signed by Noah Weaver MD in OV> 08/23/2414 DD/ 1 TD/TT: 08/23/24611 Cafeteria Clerk: [facility] External Provider IMG XR PROCEDURES Edited Result - Final * (ABNORMAL) CBC auto differential (08/23/2024 3:55 AM EDT) White Blood Count 2.6(L) 4.8 - 10.8 X10*3/uL [facility] Red Blood Count 4.65 4.60 - 5.80 X10*6/uL [facility] Hemoglobin 13.4(L) 14.0 - 18.0 g/dl [facility] Hematocrit 40.0(L) 42.0 - 52.0 % [facility] Mean Corpuscular Volume 86.0 80.0 - 98.0 fL [facility] Mean Corpuscular Hemoglobin 28.8 27.0 - 33.0 pg [facility] Mean Corpuscular HGB Conc 33.5 31.0 - 36.0 g/dl [facility] Red Cell Distribution Width 13.3 11.0 - 16.0 % [facility] Platelet Count 126(L) 160 - 400 X10*3/uL [facility] Mean Platelet Volume 9.3(L) 9.4 - 12.4 fL [facility] Neutrophils Percent Auto 68.6 45 - 73 % [facility] Imm Gran Pct Auto 0.8(H) 0.0 - 0.4 % [facility] Lymphocytes Percent Auto 18.7(L) 20 - 40 % [facility] Monocytes Percent Auto 11.5(H) 2 - 11 % [facility] Eosinophils Percent Auto 0.0 0 - 4 % [facility] Basophils Percent Auto 0.4 0 - 2 % [facility] NRBC Pct Auto 0.0 0.0 - 0.2 /100WBC [facility] Neutrophils Absolute Auto 1.8(L) 2.0 - 8.3 x10*3/uL [facility] Imm Gran Abs Auto 0.02 0.00 - 0.03 X10*3/uL [facility] Lymphocytes Absolute Auto 0.5(L) 1.2 - 4.9 X10*3/uL [facility] Monocytes Absolute Auto 0.3 0.1 - 1.2 X10*3/uL [facility] Eosinophils Absolute Auto 0.0 0.0 - 0.4 X10*3/uL [facility] Basophils Absolute Auto 0.0 0.0 - 0.2 X10*3/uL [facility] NRBC Abs Auto 0.000 0.0 - 0.012 X10*3/uL [facility] 08/23/2024 3:55 AM EDT 08/23/2024 3:58 AM EDT us Generic External Data Provider LAB BLOOD ORDERAB LES Final Result [facility] [address] [place] [address] [phone] * (ABNORMAL) Comprehensive Metabolic Panel (08/23/2024 3:55 AM EDT) Sodium 135 135 - 145 mmol/L [facility] Potassium 4.3 3.3 - 5.1 mmol/L [facility] Chloride 106 96 - 108 mmol/L [facility] Carbon Dioxide 20(L) 22 - 29 mmol/L [facility] Anion Gap 13 12 - 20 [facility] Urea Nitrogen (BUN) 17(H) 9 - 16 mg/dL [facility] Creatinine, Serum 1.13 0.5 - 1.4 mg/dL [facility] Creatinine Clr Calc Pharmacy 61.2 [facility] Comment:eGFR (calculated fro m the MDRD study equation) and eCrCl(calculated from the Cockcroft-Gault equation) are based ondifferent parameters and may not yield comparable results.If eCrCl result is absurd, please check patient'sheight/weight. Estimated Glomerular Filt Rate >60 [facility] Comment:Chronic Kidney Disea se: Estimated GFR < 60 mL/min/[id number] Kidney Disease: Estimated GFR < 15 mL/min/1.73m2 Glucose 99 60 - 115 mg/dL [facility] Calcium 9.2 8.4 - 10.2 mg/dL [facility] Bilirubin, Total 0.7 0.0 - 1.0 mg/dL [facility] Aspartate Amino Transferase 46(H) 5 - 37 U/L [facility] Alanine Aminotransferase 33 0 - 40 U/L [facility] Total Protein 7.0 6.5 - 8.0 g/dL [facility] Albumin Level 3.7 3.5 - 5.0 g/dL [facility] Alkaline Phosphatase 122(H) 39 - 117 U/L [facility] 08/23/2024 3:55 AM EDT 08/23/2024 3:58 AM EDT us Generic External Data Provider LAB BLOOD ORDERAB LES Final Result [facility] [address] [place] [address] [phone] * (ABNORMAL) Lipid Panel, Standard (02/16/2024 12:26 PM EDT) Triglycerides 78 <150 mg/dL [facility] Comment:Desirable Triglyceri de: less than 150 mg/dLBorderline High Triglyceride 150-199 mg/dLHigh Triglyceride: 200-499 mg/dLVery High Triglyceride: greater than or equal to 5OO mg/dL Cholesterol 197 <200 mg/dL [facility] Comment:Desirable Cholestero l: less than 200 mg/dLBorderline High Cholesterol: 200-239 mg/dLHigh Cholesterol: greater than 239 mg/dL LDL Cholesterol Calculated 134(H) <100 mg/dL [facility] Comment:Desirable LDL: less than 100 mg/dLNear Optimal/Above Optimal LDL: 110- 129 mg/dLBorderline High LDL: 130-159 mg/dLHigh LDL: 160-189 mg/dLVery High LDL: greater than or equal to 190 mg/dL HDL Cholesterol 48 >40 mg/dL [facility] Comment:Desirable HDL: great er than 40 mg/dL Note: This HDL assay may give artificially low results in patients with liver disease. Blood Venous blood specimen / Unknown 02/16/2024 12:26 PM EDT 02/16/2024 12:26 PM EDT Amado Booth MD LAB BLOOD ORDERABLES Final Resul t [facility] [address] [place] [address] [phone] * (ABNORMAL) Hm Colonoscopy (04/15/2023) Colonoscopy Abnormal(A ) Normal Yeni Bhatia MD HEALTH MAINTENANCE Final Result from Last 3 Months or Most Recently Relevant to Health Maintenance Insurance [facility] STANDARD [facility] DUAL COMPLETE HMO Care Teams Pheresis Nurse Relationship Specialty Start Date End Date Name, MD Amado [address] [place] [id number] PCP - General Family Medicine 12/03/16
--- OUTSIDE RECORDS SUMMARY | 2024-09-20 10:15 | XMS_ITS | Encounter Summary ---
Author Organization [employer] Address [address] [place] [address] [address] [place] [address] Care Team Providers Care Supervisor [employer] Name Role Phone Name, Amado FONG Primary Care Provider [phone] Reason for Visit * Reason Comments Med Refill Encounter Details Date Type Department Care Team ([facility] st Contact Info) Description 10/01/2022 Refill [facility] [address] [place], [place] [phone] Name, MD Amado [address] [place] [address] Heartburn Social History Tobacco Use Types Packs/Day Years Used Date Smoking Tobacco: Never Assessed Sex and Gender Information Value Date Recorded Sex Assigned at Male 03/04/2022 10:25 AM EDT Legal Sex Male 10:25 AM EDT Gender Identity Male 03/04/2022 10:25 AM EDT Sexual Orientation Straight 03/04/2022 10 :25 AM EDT documented as of this encounter Plan of Treatment Not on file documented as of this encounter Visit Diagnoses Diagnosis Heartburn documented in this encounter Care Teams Supervisor [employer] Relationship Specialty Start Date End Date Name, MD Amado [address] [place] [address] PCP - General Family Medicine 12/03/16 documented as of this encounter
--- OUTSIDE RECORDS SUMMARY | 2024-09-20 10:15 | XMS_ITS | Encounter Summary ---
Author Organization [employer] Address [address] [facility] [address] [place] [address] Care Team Providers Care Inspector Fabric Name Role Phone Name, Amado FONG Primary Care Provider [phone] Encounter Details Date Type Department Care Team ([facility] st Contact Info) Description 10/07/2022 Orders Only [facility] [address] [place] [address] Berenice Tena LPN Social History Tobacco Use Types Packs/Day Years [...] on file documented as of this encounter Procedures Procedure Name Priority Date/Time Associated Diagnosis Comments D DIMER HIGH SENSITIVITY Routine 05/22/2023 12:25 AM EST PROTHROMBIN TIME-INR Routine 05/22/2023 12:25 AM EST B TYPE NATRIURETIC PEPTIDE (BNP) Routine 05/22/2023 12:25 AM EST HIGH SENSITIVITY TROPONIN I Routine 05/21/2023 10:52 PM EST CBC WITH AUTO DIFFERENTIAL Routine 05/21/2023 10:52 PM EST BASIC METABOLIC PANEL Routine 05/21/2023 10:52 PM EST STREP A NUCLEIC ACID Routine 05/11/2023 5:02 PM EST SARS COV2/INFLUENZA A/B AND RSV RNA QL NAAT Routine 05/11/2023 5:02 PM EST URINALYSIS WITH REFLEX MICROSCOPIC Routine 05/11/2023 5:02 PM EST documented in this encounter Results * B Type Natriuretic Peptide (BNP) (05/22/2023 12:25 AM EST) Pathologist [facility] B Type Natriuretic Peptide 53 <100 pg/mL [facility] Comment:For those patients w ho are being treated with Natrecor(nesiritide, recombinant BNP), BNP testing should beperformed at least two hours post treatment in order toensure that only endogenous levels of BNP are detected. 05/22/2023 12:2 5 AM EST 05/22/2023 12:29 AM EST Generic External Data Provider LAB BLOOD ORDERAB LES Final Result Performing Organization Address [facility] de Phone Number [facility] [address] [place] [address] [phone] * D Dimer High Sensitivity (05/22/2023 12:25 AM EST) [facility] D Dimer High Sensitivity 299 NG/ML [facility] Comment:D-DIMER HS REFERENCE RANGENote: Our assay reports D-Dimer Units (D- DU).The cut-off value for venous thromboembolic (VTE) disease is230 ng/mL. This value has a very high negative predictivevalue when the patient has a low to moderate clinicalprobability of VTE.The upper limit of normal is 243 ng/mL. 05/22/2023 12:2 5 AM EST 05/22/2023 12:29 AM EST Generic External Data Provider LAB BLOOD ORDERAB LES Final Result Performing Organization Address [facility] Co de Phone Number [facility] [address] [place] [phone] * Prothrombin Time-INR (05/22/2023 12:25 AM EST) [facility] Prothrombin Time 11.8 11.1 - 13.3 SEC [facility] INTERNATIONAL NORM RATIO 1.0 0.9 - 1.1 [facility] Comment:INTERNATIONAL NORMAL IZED RATIO (INR) REFERENCE RANGES Reference RangeFor patients not on anticoagulant therapy: 0.9 - 1.1INR ranges for oral anticoagulanttherapy:For prevention and treatment of venous thrombosis and pulmonary embolism: 2.0 - 3.0For acute myocardial infarction with aspirin therapy: 2.0 - 3.0For acute myocardial infarction without aspirin therapy: 3.0 - 4.0For patients with mechanical prosthetic heart valves: 2.5 - 3.5 05/22/2023 12:2 5 AM EST 05/22/2023 12:29 AM EST Generic External Data Provider LAB BLOOD ORDERAB LES Final Result Performing Organization Address City/[facility]/ZIP Co de Phone Number [facility] [address] [place] [phone] [phone] * High Sensitivity Troponin I (05/21/2023 10:52 PM EST) [facility] TROPONIN I HIGH SENSITIVITY <2.7 <3.5 - 35.0 ng/L [facility] Comment:The Fierro high sens itivity Troponin-I results should beused in conjunction with other diagnostic information suchas ECG, clinical observations and information, and patientsymptoms to aid in the diagnosis of NM. 05/21/2023 10:5 2 PM EST 05/21/2023 10:54 PM EST us Generic External Data Provider LAB BLOOD ORDERAB LES Final Result Performing Organization Address [facility]/ZIP Co de Phone Number [facility] [address] [place] [address] [phone] * Basic Metabolic Panel (05/21/2023 10:52 PM EST) [facility] Sodium 137 135 - 145 mmol/L [facility] Potassium 4.0 3.3 - 5.1 mmol/L [facility] Chloride 105 96 - 108 mmol/L [facility] [place] Dioxide 24 22 - 29 mmol/L [facility] Anion Gap 12 12 - 20 [facility] Urea Nitrogen (BUN) 14 9 - 16 mg/dL [facility] Creatinine, Serum 1.21 0.5 - 1.4 mg/dL [facility] Creatinine Clr Calc Pharmacy 58.7 [facility] Comment:eGFR (calculated fro m the MDRD study equation) and eCrCl(calculated from the Cockcroft-Gault equation) are based ondifferent parameters and may not yield comparable results.If eCrCl result is absurd, please check patient'sheight/weight. Estimated Glomerular Filt Rate 58 [facility] Comment:NOTE: For -Am erican individuals, multiply the result by 1.210.Chronic Kidney Disease: Estimated GFR < 60 mL/min/1.47c0[place] Kidney Disease: Estimated GFR < 15 mL/min/1.73m2 Glucose 108 60 - 115 mg/dL [facility] Calcium 9.9 8.4 - 10.2 mg/dL [facility] 05/21/2023 10:5 2 PM EST 05/21/2023 10:54 PM EST us Generic External Data Provider LAB BLOOD ORDERAB LES Final Result [facility] [address] [place] [phone] * (ABNORMAL) CBC auto differential (05/21/2023 10:52 PM EST) [facility] White Blood Count 4.8 4.8 - 10.8 X10*3/uL [facility] Red Blood Count 4.83 4.60 - 5.80 X10*6/uL [facility] Hemoglobin 13.9(L) 14.0 - 18.0 g/dl [facility] Hematocrit 42.1 42.0 - 52.0 % [facility] Mean Corpuscular Volume 87.2 80.0 - 98.0 fL [facility] Mean Corpuscular Hemoglobin 28.8 27.0 - 33.0 pg [facility] Mean Corpuscular HGB Conc 33.0 31.0 - 36.0 g/dl [facility] Red Cell Distribution Width 13.9 11.0 - 16.0 % [facility] Platelet Count 182 160 - 400 X10*3/uL [facility] Mean Platelet Volume 9.5 9.4 - 12.4 fL [facility] Neutrophils Percent Auto 55.9 45 - 73 % [facility] Imm Gran Pct Auto 1.7(H) 0.0 - 0.4 % [facility] Lymphocytes Percent Auto 31.0 20 - 40 % [facility] Monocytes Percent Auto 9.8 2 - 11 % [facility] Eosinophils Percent Auto 1.0 0 - 4 % [facility] Basophils Percent Auto 0.6 0 - 2 % [facility] NRBC Pct Auto 0.0 0.0 - 0.2 /100WBC [facility] Neutrophils Absolute Auto 2.7 2.0 - 8.3 x10*3/uL [facility] Imm Gran Abs Auto 0.08(H) 0.00 - 0.03 X10*3/uL [facility] Lymphocytes Absolute Auto 1.5 1.2 - 4.9 X10*3/uL [facility] Monocytes Absolute Auto 0.5 0.1 - 1.2 X10*3/uL [facility] Eosinophils Absolute Auto 0.1 0.0 - 0.4 X10*3/uL [facility] Basophils Absolute Auto 0.0 0.0 - 0.2 X10*3/uL [facility] NRBC Abs Auto 0.000 0.0 - 0.012 X10*3/uL [facility] 05/21/2023 10:5 2 PM EST 05/21/2023 10:54 PM EST us Generic External Data Provider LAB BLOOD ORDERAB LES Final Result Performing Organization Address [facility] Co de Phone Number [facility] [address] [place] [phone] * SARS-CoV-2 RNA, Influenza A/B, and RSV RNA, Ql NAAT (05/11/2023 5:02 PM EST) Influenza A PCR NEGATIVE Negative [facility] Influenza B PCR NEGATIVE Negative [facility] Resp Syncy Virus RNA Qual PCR NEGATIVE Negative [facility] SARS COV2 PCR NEGATIVE Negative [facility] Comment:All test results mus t be correlated with clinical findings.Negative results do not preclude SARS-CoV2, influenza Avirus, influenza B virus and/or RSV infectionand should not be used as the sole basis for treatment orother patient management decisions. Negative results must becombined with clinical observations, patient history, andepidemiological information.This test has not been evaluated for monitoring treatment ofinfection.This test has been authorized by the FDA under an EmergencyUse Authorization (EUA) for use by authorized laboratories.Testing performed on the [employer] GeneXpert utilizingreal-time RT-PCR.All SARS CoV2 and positive influenza A/B results arereported to [facility]. 05/11/2023 5:02 PM EST 05/11/2023 5:08 PM EST Generic External Data Provider LAB MICROBIOLOGY - GENERAL ORDERABLES Final Result Performing Organization Address [facility] Co de Phone Number [facility] [address] [place] [phone] * Urinalysis w/reflex microscopic (05/11/2023 5:02 PM EST) Color Urine Yellow [facility] Appearance Urine Clear [facility] PH 5.5 5.0 - 9.0 [facility] Glucose Urine UA Negative Negative mg/dL [facility] Urine Blood Negative Negative [facility] Specific [place] - Urine 1.010 1.005 - 1.025 [facility] Urine Protein Negative Neg-Trace mg/dL [facility] Urine Ketones Negative Negative mg/dL [facility] Nitrite Urine Negative Negative [facility] Leukocyte Esterase Urine Negative Negative [facility] 05/11/2023 5:02 PM EST 05/11/2023 5:08 PM EST Narrative [facility] - 05/11/2023 5:27 PM EST [id number], Clean Catch Generic External Data Provider LAB URINE ORDERAB LES Final Result Performing Organization Address [facility] de Phone Number [facility] [address] [place] [phone] * Strep A Nucleic Acid (05/11/2023 5:02 PM EST) [employer] SERIAL# [id number] [facility] Strep A Nucleic Acid Negative Negative [facility] Comment:All test results mus t be correlated with clinical findings.This test has not been evaluated for monitoring treatment ofinfection.Additional follow-up testing using the culture method isrequired if the result is negative and clinical symptomspersist, or in the event of an acute rheumatic feveroutbreak. 05/11/2023 5:02 PM EST 05/11/2023 5:08 PM EST Generic External Data Provider LAB MICROBIOLOGY - GENERAL ORDERABLES Final Result Performing Organization Address [facility] Co de Phone Number [facility] [address] [place] [phone] documented in this encounter Visit Diagnoses Not on filedocumented in this encounter Care Teams Inspector Fabric Relationship Specialty Start Date End Date Name, [place] [address] PCP - General Family Medicine 12/03/16 documented as of this encounter
--- OUTSIDE RECORDS SUMMARY | 2024-09-20 10:15 | XMS_ITS | Encounter Summary ---
Author Organization [employer] Address [address] [facility] [address] [place] [address] Care Team Providers Care Gas Systems Worker Name Role Phone Name, Amado FONG Primary Care Provider [phone] Encounter Details Date Type Department Care Team (Late st Contact Info) Description 04/24/2022 Orders Only [facility] [address] [place] [address] Priti Anderson LPN Social History Tobacco Use Types Packs/Day [...] documented as of this encounter Visit Diagnoses Not on filedocumented in this encounter Care Teams Gas Systems Worker Relationship Specialty Start Date End Date Name, MD Amado [address] [place] [address] PCP - General Family Medicine 12/03/16 documented as of this encounter
--- OUTSIDE RECORDS SUMMARY | 2024-09-20 10:15 | XMS_ITS | Clinical Summary ---
Author Organization [facility] Address [address] [place] [address] Phone Care Team Providers [employer] Name Role Phone Teri Geiger MD Primary Care Provider [phone] Allergies No known active allergies Encounters Date Type Department Care Team Description 07/20/2024 6:24 PM EDT - 07/20/2024 10:31 PM EDT Emergency [facility] Emergency [address] [place] [address] Palpitations (Primary Dx) Discharge Disposition: Home or Self Care from Last 3 Months Surgical History Surgery Date Site/Laterality Comments OTHER SURGICAL HISTORY PROCEDURE: ---- OTHER ----; COMMENT: abdominal surgery after trauma CHOLECYSTECTOMY 07/06/2020 PROCEDURE: LAPAROSCOPIC CHOLECYSTECT; COMMENT: laparoscopic cholecystectomy for acute on chronic cholecystitis with cholelithiasis - by Dr. 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 Family History Medical History Relation Name Comments Cataracts Sister 1 Glaucoma Sister 1 Macular degeneration Sister 1 Blindness Neg Hx Strabismus Neg Hx Relation Name Status Comments Brother 1 Alive CVA Brother 2 Alive Brother 3 Alive Daughter Alive Father CVA Mother CAD Sister 1 Alive CVA Sister 2 Alive Sister 3 Alive Son Alive Social History Tobacco Use Types Packs/Day Years Used Date Smoking Tobacco: Former Smokeless Tobacco: Never Alcohol Use Standard Drinks/Week Comments No 0 (1 standard drink = 0.6 oz pur e alcohol) Sex and Gender Information Value Date Recorded Sex Assigned at Not on file Legal Sex Male 5:05 AM EST Gender Identity Not on file Sexual Orientation Not on file Obstetrics History Last Filed Vital Signs Vital Sign Reading Time Taken Comments Blood Pressure 149/86 07/20/2024 6:29 PM EDT Pulse 108 07/20/2024 6:29 PM EDT Temperature 36.9 ??C (98.4 ??F) 07/20/2024 6:29 PM ED T Respiratory Rate 18 07/20/2024 6:29 PM EDT Oxygen Saturation 96% 07/20/2024 6:42 PM EDT Inhaled Oxygen Concentration - - Weight 92.1 kg (203 lb) 07/20/2024 6:29 PM EDT Height 180.3 cm (5' 11 ) 07/20/2024 6:29 PM EDT Body Mass Index 28.31 07/20/2024 6:29 PM EDT Plan of Treatment Health Maintenance Due Date Last Done Comments Zoster Vaccines (1 of 2) 01/04/1964 RSV Immunization Adult Patients (1 - 1-dose 75+ series) 01/04/2019 Falls Risk Assessment 04/07/2022 Medicare Annual Wellness Visit 04/07/2022 Social Influencers of Health Screening 04/07/2022 COVID-19 Vaccine ( season) 2024 04/11/2021, 07/14/2020, 06/23/2020 Depression Screening 01/25/2025 01/26/2024 Hypertension/CHF/CAD Annual BMP Blood Test 07/20/2025 07/20/2024 Cholesterol Screening (Lipid Panel) 02/15/2029 02/16/2024 DTaP,Tdap,and Td Vaccines (5 - Td or Tdap) 02/07/2033 [...] on patient's age to complete this topic MMR Vaccines Aged Out No longer eligi ble based on patient's age to complete this topic Meningococcal ACWY Vaccine Aged Out N o longer eligible based on patient's age to complete this topic Meningococcal B Vaccine Aged Out No l onger eligible based on patient's age to complete this topic RSV Immunization Patients Under 20 months Aged Out No longer eligible based on patient's age to complete this topic Varicella Vaccines Aged Out No longer eligible based on patient's age to complete this topic Procedures Procedure Name Priority Date/Time Associated Diagnosis Comments ECG ANNOTATED 07/23/2024 TROPONIN I HIGH SENSITIVITY STAT 07/20/2024 9:20 PM EDT XR CHEST 2 VIEWS STAT 07/20/2024 7:09 PM EDT THYROXINE FREE STAT Add-on 07/20/2024 6:34 PM EDT THYROID STIMULATING HORMONE STAT Add-on 07/20/2024 6:34 PM EDT CBC WITH AUTO DIFFERENTIAL STAT 07/20/2024 6:34 PM EDT B-TYPE NATRIURETIC PEPTIDE STAT 07/20/2024 6:34 PM EDT MAGNESIUM STAT 07/20/2024 6:34 PM EDT LIPASE STAT 07/20/2024 6:34 PM EDT COMPREHENSIVE METABOLIC PANEL STAT 07/20/2024 6:34 PM EDT CBC AND DIFFERENTIAL STAT 07/20/2024 6:34 PM EDT TROPONIN I HIGH SENSITIVITY STAT 07/20/2024 6:34 PM EDT ECG 12-LEAD STAT 07/20/2024 6:21 PM EDT from Last 3 Months Results * ECG-Annotated (07/23/2024) Provider Onbase ECG ORDERABLES Final Result * Troponin I high sensitivity (07/20/2024 9:20 PM EDT) Only the most recent of2 resultswithin the time period is included. High Sensitivity Troponin I 11 <=79 ng/L LAB CHEMISTRY METHOD 07/20/2024 9:59 PM EDT [facility] Blood Venous blood specimen / Unknown Venipuncture / Unknown 07/20/2024 9:20 PM EDT 07/20/2024 9:34 PM EDT Narrative [facility] - 07/20/2024 9:59 PM EDT High levels of biotin in samples may falsely decrease hsTroponin values. ??Use caution when interpreting hsTroponin results in patients taking biotin who exhibit renal impairment (eGFR <60) or in patients taking more than 20 mg/day of biotin. Richard Daly MD LAB BLOOD ORDERABLES Final Resu lt [facility] [address] [place] [address], * XR Chest 2 Views (07/20/2024 7:09 PM EDT) Anatomical Region Laterality Modality Body Radiographic Geovanna ging 07/21/2024 8:17 AM EDT Impressions 07/21/2024 8:20 AM EDT No acute pulmonary disease. Code 60256 -------- FINAL REPORT -------- Dictated By: Calvin Pierre Dictated Date: 07/21/2024 08:17 ET Assigned Physician: Calvin Pierre Reviewed and Electronically Signed By: Calvin Pierre Signed Date: 07/21/2024 08:20 ET Workstation ID: [id number] Transcribed By: Self Edit Transcribed Date: 07/21/2024 08:17 ET Narrative 07/21/2024 8:20 AM EDT HISTORY: The patient is an 79-year-old male with chest pain. FINDINGS: PA and lateral radiographs of the chest demonstrate degenerative changes of the thoracic spine as also seen on the prior study performed 12/27/2023. Bridging anterior osteophytes are present in the mid and lower thoracic spine which were not visible on the prior study in the absence of a lateral view at that time. The cardiac and mediastinal contours are within normal limits. The lungs and costophrenic angles are clear. The 10 mm nodular density in the left midlung seen on the prior examination has resolved. Cholecystectomy clips are noted. Procedure Note Calvin Pierre MD - 07/21/2024 HISTORY: The patient is an 79-year-old male with chest pain. FINDINGS: PA and lateral radiographs of the chest demonstrate degenerativechanges of the thoracic spine as also seen on the prior study performed12/27/2023. Bridging anterior osteophytes are present in the mid and lowerthoracic spine which were not visible on the prior study in the absence ofa lateral view at that time. The cardiac and mediastinal contours arewithin normal limits. The lungs and costophrenic angles are clear. The 10mm nodular density in the left midlung seen on the prior examination hasresolved. Cholecystectomy clips are noted. IMPRESSION: No acute pulmonary disease. Code 39453 -------- FINAL REPORT -------- Dictated By: Calvin Pierre Dictated Date: 07/21/2024 08:17 ET Assigned Physician: Calvin Pierre Reviewed and Electronically Signed By: Calvin Pierre Signed Date: 07/21/2024 08:20 ET Workstation ID: [id number] Transcribed By: Self Edit Transcribed Date: 07/21/2024 08:17 ET Richard Daly MD IMG XR PROCEDURES Final Result * (ABNORMAL) CBC auto differential (07/20/2024 6:34 PM EDT) [facility] WBC 4.8 4.8 - 10.8 K/mcL LAB HEMETOLOGY METHOD 07/20/2024 6:58 PM EDT [facility] RBC 4.70 4.50 - 5.50 M/mcL LAB HEMETOLOGY METHOD 07/20/2024 6:58 PM EDT [facility] Hemoglobin 13.6 13.5 - 17.5 g/dL LAB HEMETOLOGY METHOD 07/20/2024 6:58 PM EDT [facility] Hematocrit 41.7(L) 42.0 - 54.0 % LAB HEMETOLOGY METHOD 07/20/2024 6:58 PM EDT [facility] MCV 89.7 79.0 - 98.0 FL LAB HEMETOLOGY METHOD 07/20/2024 6:58 PM EDT [facility] MCH 29.2 27.0 - 32.0 pcg LAB HEMETOLOGY METHOD 07/20/2024 6:58 PM EDT [facility] MCHC 32.6 32.0 - 37.0 g/dL LAB HEMETOLOGY METHOD 07/20/2024 6:58 PM EDT [facility] RDW 13.3 11.0 - 15.0 % LAB HEMETOLOGY METHOD 07/20/2024 6:58 PM EDT [facility] Platelets 169 130 - 400 K/mcL LAB HEMETOLOGY METHOD 07/20/2024 6:58 PM EDT [facility] MPV 9.7 7.0 - 11.0 FL LAB HEMETOLOGY METHOD 07/20/2024 6:58 PM EDT [facility] NRBC 0.0 <1.0 % LAB HEMETOLOGY METHOD 07/20/2024 6:58 PM EDT [facility] NRBC Absolute 0.00 <0.10 K/mcL LAB HEMETOLOGY METHOD 07/20/2024 6:58 PM EDT [facility] Neutrophils Relative 64.4 % LAB HEMETOLOGY METHOD 07/20/2024 6:58 PM EDT [facility] Lymphocytes Relative 23.8 % LAB HEMETOLOGY METHOD 07/20/2024 6:58 PM EDT [facility] Monocytes Relative 10.0 % LAB HEMETOLOGY METHOD 07/20/2024 6:58 PM EDT [facility] Eosinophils Relative 0.8 % LAB HEMETOLOGY METHOD 07/20/2024 6:58 PM EDT [facility] Basophils Relative 0.2 % [facility] Immature Granulocytes Relative 0.8 % LAB HEMETOLOGY METHOD 07/20/2024 6:58 PM EDT [facility] Neutrophils Absolute 3.09 1.50 - 7.00 K/mcL LAB HEMETOLOGY METHOD 07/20[facility]2024 6[facility] Lymphocytes Absolute 1.14 1.00 - 5.00 K/mcL LAB HEMETOLOGY METHOD 07/20/2024 6:58 PM [facility] Monocytes Absolute 0.48 0.20 - 1.00 K/mcL LAB HEMETOLOGY METHOD 07/20/2024 6:58 PM EDT [facility] Eosinophils Absolute 0.04 0.00 - 0.50 K/mcL LAB HEMETOLOGY METHOD 07/20/2024 6:58 PM EDT [facility] Basophils Absolute 0.01 0.00 - 0.20 K/mcL LAB HEMETOLOGY METHOD 07/20/2024 6:[facility] Immature Granulocytes Absolute 0.04(H) 0.00 - 0.03 K/mcL LAB HEMETOLOGY METHOD 07/20/2024 6:58 PM EDT [facility] Blood Venous blood specimen / Unknown Venipuncture / Unknown 07/20/2024 6:34 PM EDT 07/20/2024 6:50 PM EDT Richard Daly MD LAB BLOOD ORDERABLES Final Resu lt Performing Organization Address City/[facility]/ZIP Co de Phone Number [facility] [address] [place] [address], [place] [phone] * Thyroid stimulating hormone (TSH) (07/20/2024 6:34 PM EDT) TSH 2.39 0.40 - 4.00 mcIU/mL LAB CHEMISTRY METHOD 07/20/2024 8:45 PM EDT [facility] Blood Venous blood specimen / Unknown Venipuncture / Unknown 07/20/2024 6:34 PM EDT 07/20/2024 6:50 PM EDT Maura SANDERS LAB BLOOD ORDERABLES Fin al Result Performing Organization Address [facility]/ZIP Co de Phone Number [facility] [address] [place] [address], [place] [phone] * T4, free (07/20/2024 6:34 PM EDT) Free T4 1.07 0.70 - 1.80 ng/dL LAB CHEMISTRY METHOD 07/20/2024 8:45 PM EDT [facility] Blood Venous blood specimen / Unknown Venipuncture / Unknown 07/20/2024 6:34 PM EDT 07/20/2024 6:50 PM EDT Maura SANDERS LAB BLOOD ORDERABLES Fin al Result Performing Organization Address City/[facility]/ZIP Co de Phone Number [facility] [address] [place] [address], [place] [phone] * B-type natriuretic peptide (07/20/2024 6:34 PM EDT) BNP 40 <=100 pcg/mL LAB CHEMISTRY METHOD 07/20/2024 7:27 PM EDT [facility] Blood Venous blood specimen / Unknown Venipuncture / Unknown 07/20/2024 6:34 PM EDT 07/20/2024 6:50 PM EDT Richard Darlin Daly MD LAB BLOOD ORDERABLES Final Resu lt [facility] [address] [place] [address], * (ABNORMAL) Magnesium (07/20/2024 6:34 PM EDT) Magnesium 1.8(L) 1.9 - 2.6 mg/dL LAB CHEMISTRY METHOD 07/20/2024 7:19 PM EDT [facility] Blood Venous blood specimen / Unknown Venipuncture / Unknown 07/20/2024 6:34 PM EDT 07/20/2024 6:50 PM EDT Richard Daly MD LAB BLOOD ORDERABLES Final Resu lt [facility] [address] [place] [address], [place] [phone] * Lipase (07/20/2024 6:34 PM EDT) Lipase 27 13 - 75 unit/L LAB CHEMISTRY METHOD 07/20/2024 7:19 PM EDT [facility] Blood Venous blood specimen / Unknown Venipuncture / Unknown 07/20/2024 6:34 PM EDT 07/20/2024 6:50 PM EDT us Ramos Darlin Daly MD LAB BLOOD ORDERABLES Final Resu lt [facility] [address] [place] [address], * (ABNORMAL) Comprehensive metabolic panel (07/20/2024 6:34 PM EDT) Sodium 141 133 - 145 mmol/L LAB CHEMISTRY METHOD [facility]/20[facility]2024 7[facility] Potassium 4.0 3.5 - 5.5 mmol/L LAB CHEMISTRY METHOD 07/20/2024 7:19 PM [facility] Chloride 110 96 - 110 mmol/L LAB CHEMISTRY METHOD 07/20/2024 7:19 PM [facility] CO2 23 21 - 32 mmol/L LAB CHEMISTRY METHOD 07/20/2024 7:19 PM [facility] Anion Gap 8 3 - 11 LAB CHEMISTRY METHOD 07/20/2024 7:19 PM [facility] Glucose 104(H) 70 - 100 mg/dL LAB CHEMISTRY METHOD 07/20/2024 7:19 PM [facility] BUN 16 5 - 25 mg/dL LAB CHEMISTRY METHOD 07/20/2024 7:19 PM [facility] Creatinine 1.28 0.70 - 1.30 mg/dL LAB CHEMISTRY METHOD 07/20/2024 7:19 PM [facility] eGFR 57(L) >=60 mL/min/1. 73m2 LAB CHEMISTRY METHOD 07/20/2024 7:19 PM [facility] Comment:Calculation based on the??Chronic Kidney Disease Epidemiology Collaboration (CKD-EPI) equation refit??without adjustment for race. BUN/Creatinine Ratio 12.5 LAB CHEMISTRY METHOD 07/20/2024 7:19 PM [facility] Calcium 9.9 8.5 - 10.5 mg/dL LAB CHEMISTRY METHOD 07/20/2024 7:19 PM EDT [facility] AST (SGOT) 18 10 - 42 unit/L LAB CHEMISTRY METHOD 07/20/2024 7:19 PM EDT [facility] ALT (SGPT) 28 10 - 60 unit/L LAB CHEMISTRY METHOD 07/20/2024 7:19 PM EDT [facility] Alkaline Phosphatase 109 42 - 121 unit/L LAB CHEMISTRY METHOD 07/20/2024 7:19 PM EDT [facility] Total Protein 7.5 6.0 - 8.0 g/dL LAB CHEMISTRY METHOD 07/20/2024 7:19 PM EDT [facility] Albumin 3.8 3.2 - 5.0 g/dL LAB CHEMISTRY METHOD 07/20/2024 7:19 PM EDT [facility] Total Bilirubin 0.4 0.0 - 1.4 mg/dL LAB CHEMISTRY METHOD 07/20/2024 7:19 PM EDT [facility] Blood Venous blood specimen / Unknown Venipuncture / Unknown 07/20/2024 6:34 PM EDT 07/20/2024 6:50 PM EDT Richard Daly MD LAB BLOOD ORDERABLES Final Resu lt [facility] [address] [place] [address], * ECG 12 lead (07/20/2024 6:21 PM EDT) Ventricular Rate ECG 104 BPM GEMUSE Atrial Rate 104 BPM GEMUSE P-R Interval 196 ms GEMUSE QRS Duration 92 ms GEMUSE Q-T Interval 328 ms GEMUSE QTc 431 ms GEMUSE P Wave [place] 53 degrees GEMUSE R [place] -12 degrees GEMUSE T [place] 65 degrees GEMUSE ECG Interpretation Sinus tachycardia with occasional Premature ventricular complexes Otherwise normal ECG When compared with ECG of 27-DEC-2023 05:45, Premature ventricular complexes are now Present Premature atrial complexes are no longer Present Vent. rate has increased BY ??35 BPM Confirmed by FRANCISCA NAYLOR ([id number]) on 07/22/2024 9:39:12 AM GEMUSE 07/20/2024 6:21 PM EDT 07/22/2024 9:39 AM EDT Richard Darlin Daly MD ECG ORDERABLES Final Result GEMUSE from Last 3 Months Insurance [employer] MEDICARE MEDICAID - [place] Care Teams [employer] Relationship Specialty Start Date End Date Teri Geiger MD [address] [place] [address] , [address] Physician [facility] D[facility]B/A: [facility] [place] PCP - General 04/07/20
== END 2024-09-20 10:25 | disposition home or self-care (01) ==
LOC: HO.HGI 09:55
PROVIDERS: PCP Internal Medicine Geriatric Medicine; Visit Provider Nurse Practitioner Family
DX: K21.9 Gastro-esophageal reflux disease without esophagitis (principal); K52.9 Noninfective gastroenteritis and colitis, unspecified; K22.70 Barrett's esophagus without dysplasia
CPT/HCPCS: 99213

== ENCOUNTER → 2024-09-20 09:54 | Outpatient (BNVA) | payer MEDICARE, SELFPAY | PROVIDERS: PCP Internal Medicine Geriatric Medicine; Visit Provider Nurse Practitioner Family | DX: K58.1 Irritable bowel syndrome with constipation (principal); K21.9 Gastro-esophageal reflux disease without esophagitis; K52.9 Noninfective gastroenteritis and colitis, unspecified; K22.70 Barrett's esophagus without dysplasia | CPT/HCPCS: 99212 ==

== ENCOUNTER 2024-12-14 18:44 | Emergency (ER) | payer MEDICARE, SELFPAY ==
--- NOTE | 2024-12-14 18:47 | ECG_ITS ---
Test Reason : cp Blood Pressure : */* mmHG Vent. Rate : 88 BPM Atrial Rate : 88 BPM P-R Int : 178 ms QRS Dur : 94 ms QT Int : 356 ms P-R-T Axes : 28 -19 37 degrees QTcB Int : 430 ms Normal sinus rhythm Normal ECG When compared with ECG of 23-Aug-2024 03:50, No significant change was found Referred By: Fern Aranda Electronically Signed By: Rohan Proctor
--- NOTE | 2024-12-14 18:54 | ED.GENADULT ---
HPI - General Adult General Chief complaint: General Medical Stated complaint: left side chest pain/tense Time Seen by Provider: 12/14/24 19:23 Source: patient Mode of arrival: ambulatory Limitations: no limitations History of Present Illness ED Provider: HPI narrative: 79-year-old with past medical history of symptomatic PVCs, atrial tachycardia, remote RVOT ablation ran out of his metoprolol for last 4 days last night while working out patient noticed palpitation with lasted for an hour no syncope no chest pain patient called his PCP for the medication. No fever no chills on arrival patient' is in sinus rhythm heart rate in the 80s asymptomatic Related Data Home Medications ?Medication ?Instructions ?Recorded ?Confirmed nabumetone 750 mg tablet 750 mg PO BID 04/24/20 04/15/23 tadalafil 20 mg tablet 20 mg PO DAILY PRN Erectile 04/24/20 04/15/23 Dysfunction tramadol 50 mg tablet 50 mg PO Q12H PRN Pain 04/24/20 04/15/23 cholecalciferol (vitamin D3) 50 50 mcg PO DAILY 01/14/23 04/15/23 mcg (2,000 unit) tablet diclofenac sodium 1 % topical gel 2 g topical BID 05/07/23 multivitamin 1 tab PO DAILY 05/07/23 Previous Rx's ?Medication ?Instructions ?Recorded metoprolol succinate 100 mg 100 mg PO DAILY #90 tabs 04/22/22 tablet,extended release 24 hr hydrocortisone 2.5 % topical cream 1 appl [place] BID-QID PRN hemorrhoids 05/07/23 with perineal applicator #30 grams (Proctosol HC) wheat dextrin 3 gram/3.5 gram oral 1 packet PO DAILY #28 ea 05/07/23 powder packet (Benefiber Clear Sugar Free(dextrin)) acetaminophen 500 mg tablet 500 mg PO Q6H PRN fever or pain 05/11/23 (Tylenol Extra Strength) #14 tabs cyclobenzaprine 5 mg tablet 5 mg PO TID PRN muscle spasm #10 07/22/23 tabs lidocaine 5 % topical patch 1 patch topical DAILY #15 ea 07/22/23 docusate sodium 100 mg capsule 100 mg PO BEDTIME #30 caps 03/26/24 famotidine 20 mg tablet (Pepcid) 20 mg PO BEDTIME #90 tabs 03/26/24 omeprazole 40 mg capsule,delayed 40 mg PO DAILY #90 caps 09/20/24 release sennosides 8.6 mg tablet (Natural 17.2 mg (2 x 8.6 mg) PO BEDTIME 09/20/24 Senna Laxative) constipation #90 tabs Allergies Allergy/AdvReac Type Severity Reaction Status Date / Time No Known Allergies Allergy Verified 12/14/24 18:59 Review of Systems Review of Systems: Yes all other systems are reviewed and are negative [facility] Past Medical History Medical History Palpitations SVT (supraventricular tachycardia) PVC's (premature ventricular contractions) Surgical History History of cholecystectomy Hx of endoscopy Hx of colonoscopy S/P ablation of ventricular arrhythmia (~2007) Family History Family History Father CVD (cardiovascular disease) Mother No problems noted. Social History Social History Household Members: Family Alcohol intake: never Patient Tobacco Use Status: Never used Tobacco Advance Directives: No Advance Directives Information Provided: No Do you have a plan to hurt others: No Plan Physical Exam ED Vital Signs: Vital Signs - 24 hr 12/14/24 18:58 12/14/24 20:08 Temperature 97.0 F Pulse Rate 87 69 Respiratory Rate 16 Blood Pressure 153/84 H 151/78 H Pulse Oximetry 98 Oxygen Delivery Method Room Air BMI result Body Mass Index 29.1 Appearance: Alert. Oriented X3. No acute distress. Eyes: PERRLA, No Nystagmus ENT: Pharynx normal. Oral Mucosa moist Neck: Normal inspection. Neck supple. CVS: Normal heart rate and rhythm. Pulses normal. Respiratory: No respiratory distress. Equal air entry bilateral, no wheezing/rales/rhonchi Abdomen: Soft and nontender. Bowel sounds are present, no mass palpable, no CVA tenderness Skin: Skin warm and dry. Normal skin color. Normal skin turgor. Extremities: No lower extremity edema. No calf tenderness Neuro: Oriented X 3. No motor deficit. No sensory deficit.No cerebellar signs , cranial nerves II-XII intact Course Course Course Narrative: Rapid medical examination performed in triage by Fern Aranda PA-C. Patient is a 79 year old assigned male at presenting to the emergency department with palpitations. States that he has been out of his medicines for 5 days. Normally takes 100mg Metoprolol. 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 EKG, labs, imaging ordered. Patient placed back in the waiting room pending room availability and results. Medications Administered Discontinued Medications Generic Name Dose Route Start Last Admin Trade Name Fregillian PRN Reason Stop Dose Admin Metoprolol Tartrate 50 mg 12/14/24 20:02 12/14/24 20:08 Metoprolol Tartrate 50 Mg Tablet PO 12/14/24 20:03 50 mg ONCE ONE Administration Protocol Medical Decision Making Medical Decision Making [facility] Narrative: Patient's history of SVT ran out of his medication for 4 days comes here with similar episode which happened last night on arrival patient's sinus rhythm EKG without any arrhythmia will discharge patient home will give metoprolol in the ER and already has 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 12/14/24 19:04 12/14/24 19:04 Labs: Lab Results 12/14/24 Range/Units 19:04 WBC 3.9 L (4.8-10.8) X10*3/uL RBC 4.70 (4.60-5.80) X10*6/uL Hgb 13.9 L (14.0-18.0) g/dl Hct 40.2 L (42.0-52.0) % MCV 85.5 (80.0-98.0) fL MCH 29.6 (27.0-33.0) pg MCHC 34.6 (31.0-36.0) g/dl RDW 13.8 (11.0-16.0) % Plt Count 163 D (160-400) X10*3/uL MPV 9.3 L (9.4-12.4) fL Immature Gran % (Auto) 1.0 H (0.0-0.4) % Neut % (Auto) 56.2 (45-73) % Lymph % (Auto) 28.8 (20-40) % Wood % (Auto) 13.0 H (2-11) % Eos % (Auto) 0.5 (0-4) % Baso % (Auto) 0.5 (0-2) % Lymph # (Auto) 1.1 L (1.2-4.9) X10*3/uL Wood # (Auto) 0.5 (0.1-1.2) X10*3/uL Eos # (Auto) 0.0 (0.0-0.4) X10*3/uL Baso # (Auto) 0.0 (0.0-0.2) X10*3/uL Abs Immat Gran (auto) 0.04 H (0.00-0.03) X10*3/uL Absolute Neuts (auto) 2.2 (2.0-8.3) x10*3/uL Absolute Nucleated RBC 0.000 (0.0-0.012) X10*3/uL Nucleated RBC % (auto) 0.0 (0.0-0.2) /100WBC Sodium 142 (135-145) mmol/L Potassium 4.1 (3.3-5.1) mmol/L Chloride 110 H (96-108) mmol/L Carbon Dioxide 22 (22-29) mmol/L Anion Gap 14 (12-20) BUN 9 (9-16) mg/dL Creatinine 1.01 (0.5-1.4) mg/dL Estim Creat Clear Calc 66.5 Estimated GFR > 60 Random Glucose 89 (60-115) mg/dL Calcium 9.4 (8.4-10.2) mg/dL Magnesium 2.1 (1.6-2.6) mg/dL Total Bilirubin 0.7 (0.0-1.0) mg/dL AST 28 (5-37) U/L ALT 30 (0-40) U/L Alkaline Phosphatase 112 (39-117) U/L Troponin I High Sens < 2.7 (<3.5-35.0) ng/L Total Protein 7.5 (6.5-8.0) g/dL Albumin 4.2 (3.5-5.0) g/dL Independent Interpretation I performed an independent interpretation of an: EKG Interpretation: Normal sinus rhythm heart rate 88 beats per minute normal intervals normal axis no acute STT wave changes no acute ischemia Discharge Plan Discharge Clinical Impression: SVT (supraventricular tachycardia) Patient Disposition: Home, Self-Care Instructions: Supraventricular Tachycardia (ED) Additional Instructions: 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 Please call [phone] to schedule appt for 2022 so we can continue refilling future refills. acetaminophen [Tylenol Extra Strength] 500 mg tablet 500 mg PO Q6H PRN (Reason: fever or pain) Qty: 14 0RF cyclobenzaprine 5 mg tablet 5 mg PO TID PRN (Reason: muscle spasm) Qty: 10 0RF lidocaine 5 % adhesive patch,medicated 1 patch topical DAILY Qty: 15 0RF Rx Instructions: leave on most painful area for up to 12 hrs tramadol 50 mg tablet 50 mg PO Q12H PRN (Reason: Pain) nabumetone 750 mg tablet 750 mg PO BID tadalafil 20 mg tablet 20 mg PO DAILY PRN (Reason: Erectile Dysfunction) multivitamin Tablet 1 tab PO DAILY diclofenac sodium 1 % gel 2 g topical BID Benefiber Clear SF (dextrin) 3 gram/3.5 gram powder in packet 1 packet PO DAILY Qty: 28 5RF Rx Instructions: mix into at least 4 oz water or juice before administering hydrocortisone [Proctosol HC] 2.5 % cream with perineal applicator 1 appl MI BID-QID PRN (Reason: hemorrhoids) Qty: 30 2RF sennosides [Natural Senna Laxative] 8.6 mg tablet 17.2 mg PO BEDTIME Qty: 90 3RF omeprazole 40 mg capsule,delayed release(DR/EC) 40 mg PO DAILY Qty: 90 2RF cholecalciferol (vitamin D3) 50 mcg (2,000 unit) tablet 50 mcg PO DAILY docusate sodium 100 mg capsule 100 mg PO BEDTIME Qty: 30 3RF famotidine [Pepcid] 20 mg tablet 20 mg PO BEDTIME Qty: 90 3RF Print Language: Kyrgyz
[2024-12-14 18:58] VITALS: BP 153/84; PULSE 87; RESP 16; TEMP 36.1; O2SAT 98; BMI 29.1
[2024-12-14 19:10] LABS: MANUAL DIFF FLAG NO
[2024-12-14 19:11] LABS: Hematocrit 40.2 % (42.0-52.0); Hemoglobin 13.9 g/dl (14.0-18.0); Imm Gran Abs Auto 0.04 X10*3/uL (0.00-0.03); Imm Gran Pct Auto 1.0 % (0.0-0.4); Lymphocytes Absolute Auto 1.1 X10*3/uL (1.2-4.9); Mean Corpuscular HGB Conc 34.6 g/dl (31.0-36.0); Mean Corpuscular Hemoglobin 29.6 pg (27.0-33.0); Mean Corpuscular Volume 85.5 fL (80.0-98.0); NRBC Abs Auto 0.000 X10*3/uL (0.0-0.012); NRBC Pct Auto 0.0 /100WBC (0.0-0.2); Platelet Count 163 X10*3/uL (160-400); Red Blood Count 4.70 X10*6/uL (4.60-5.80); White Blood Count 3.9 X10*3/uL (4.8-10.8)
[2024-12-14 19:26] LABS: Alanine Aminotransferase 30 U/L (0-40); Albumin Level 4.2 g/dL (3.5-5.0); Alkaline Phosphatase 112 U/L (39-117); Anion Gap 14 (12-20); Aspartate Amino Transferase 28 U/L (5-37); Blood Urea Nitrogen 9 mg/dL (9-16); Calcium 9.4 mg/dL (8.4-10.2); Carbon Dioxide 22 mmol/L (22-29); Chloride 110 mmol/L (96-108); Creatinine Clr Calc Pharmacy 66.5; Estimated Glomerular Filt Rate > 60; Magnesium 2.1 mg/dL (1.6-2.6); Potassium 4.1 mmol/L (3.3-5.1); Sodium 142 mmol/L (135-145); Total Protein 7.5 g/dL (6.5-8.0)
[2024-12-14 19:34] LABS: Troponin-I High Sensitivity < 2.7 ng/L (<3.5-35.0)
[2024-12-14 20:08] VITALS: BP 151/78; PULSE 69
[2024-12-14 20:34] VITALS: BP 151/78; PULSE 69; RESP 18; TEMP 36.8; O2SAT 97
== END 2024-12-14 20:34 | disposition home or self-care (01) ==
PROVIDERS: Physician Assistant Medical; Emergency Provider Internal Medicine; PCP Internal Medicine Geriatric Medicine
DX: I47.10 Supraventricular tachycardia, unspecified (principal); R07.9 Chest pain, unspecified
CPT/HCPCS: 36415; 80053; 83735; 84484; 85025; 93005; 99283

== ENCOUNTER → 2024-12-14 18:47 | Outpatient (BNV) | payer MEDICARE, SELFPAY | PROVIDERS: Emergency Provider Internal Medicine; PCP Internal Medicine Geriatric Medicine; Visit Provider Internal Medicine Cardiovascular Disease | DX: R07.89 Other chest pain (principal) | CPT/HCPCS: 93010 ==

== ENCOUNTER 2025-02-02 13:24 | Emergency (ER) | payer MEDICARE, SELFPAY ==
[2025-02-02 14:02] VITALS: BP 153/74; PULSE 53; RESP 18; TEMP 36.6; O2SAT 97; BMI 28.3
--- NOTE | 2025-02-02 14:05 | ED.ABDPAIN ---
HPI - Abdominal Pain General Chief Complaint: Abdominal Pain Stated Complaint: stomach pain Related Data Home Medications ?Medication ?Instructions ?Recorded ?Confirmed nabumetone 750 mg tablet 750 mg PO BID 04/24/20 04/15/23 tadalafil 20 mg tablet 20 mg PO DAILY PRN Erectile 04/24/20 04/15/23 Dysfunction tramadol 50 mg tablet 50 mg PO Q12H PRN Pain 04/24/20 04/15/23 cholecalciferol (vitamin D3) 50 50 mcg PO DAILY 01/14/23 04/15/23 mcg (2,000 unit) tablet diclofenac sodium 1 % topical gel 2 g topical BID 05/07/23 multivitamin 1 tab PO DAILY 05/07/23 Previous Rx's ?Medication ?Instructions ?Recorded metoprolol succinate 100 mg 100 mg PO DAILY #90 tabs 04/22/22 tablet,extended release 24 hr hydrocortisone 2.5 % topical cream 1 appl [place] BID-QID PRN hemorrhoids 05/07/23 with perineal applicator #30 grams (Proctosol HC) wheat dextrin 3 gram/3.5 gram oral 1 packet PO DAILY #28 ea 05/07/23 powder packet (Benefiber Clear Sugar Free(dextrin)) acetaminophen 500 mg tablet 500 mg PO Q6H PRN fever or pain 05/11/23 (Tylenol Extra Strength) #14 tabs cyclobenzaprine 5 mg tablet 5 mg PO TID PRN muscle spasm #10 07/22/23 tabs lidocaine 5 % topical patch 1 patch topical DAILY #15 ea 07/22/23 docusate sodium 100 mg capsule 100 mg PO BEDTIME #30 caps 03/26/24 famotidine 20 mg tablet (Pepcid) 20 mg PO BEDTIME #90 tabs 03/26/24 omeprazole 40 mg capsule,delayed 40 mg PO DAILY #90 caps 09/20/24 release sennosides 8.6 mg tablet (Natural 17.2 mg (2 x 8.6 mg) PO BEDTIME 09/20/24 Senna Laxative) constipation #90 tabs Allergies Allergy/AdvReac Type Severity Reaction Status Date / Time No Known Allergies Allergy Verified 02/02/25 14:03 [facility] Past Medical History Medical History Palpitations SVT (supraventricular tachycardia) PVC's (premature ventricular contractions) Surgical History History of cholecystectomy Hx of endoscopy Hx of colonoscopy S/P ablation of ventricular arrhythmia (~2007) Family History Family History Father CVD (cardiovascular disease) Mother No problems noted. Social History Social History Household Members: Family Alcohol intake: never Patient Tobacco Use Status: Never used Tobacco Advance Directives: No Advance Directives Information Provided: No Do you have a plan to hurt others: No Plan Physical Exam ED Vital Signs: Vital Signs - 24 hr 02/02/25 14:02 Temperature 97.9 F Pulse Rate 53 Respiratory Rate 18 Blood Pressure 153/74 H Pulse Oximetry 97 Oxygen Delivery Method Room Air BMI result Body Mass Index 28.3 Course Course Course Narrative: This is an RME: Additional HPI, ROS, PE not included below will be deferred to primary provider. RME assessment and note performed by: Karina Noble PA-C This is a 80-year-old male, with a past medical history of SVT, presents emergency department complaints of abdominal pain for the last 3 weeks. Also endorsing increased weakness, denies any nausea or vomiting. Mild tenderness palpation in the epigastrium. Plan: Labs, EKG, further ER evaluation needed. Reevaluation(s) Reevaluation #1: Patient left without completing treatment. Medical Decision Making Lab Data 02/02/25 15:05 02/02/25 15:05 Labs: Lab Results 02/02/25 Range/Units 15:05 WBC 3.3 L (4.8-10.8) X10*3/uL RBC 4.94 (4.60-5.80) X10*6/uL Hgb 14.3 (14.0-18.0) g/dl Hct 44.4 (42.0-52.0) % MCV 89.9 (80.0-98.0) fL MCH 28.9 (27.0-33.0) pg MCHC 32.2 (31.0-36.0) g/dl RDW 13.6 (11.0-16.0) % Plt Count 135 L (160-400) X10*3/uL MPV 9.9 (9.4-12.4) fL Immature Gran % (Auto) 0.9 H (0.0-0.4) % Neut % (Auto) 46.2 (45-73) % Lymph % (Auto) 39.8 (20-40) % Blount % (Auto) 11.0 (2-11) % Eos % (Auto) 1.2 (0-4) % Baso % (Auto) 0.9 (0-2) % Lymph # (Auto) 1.3 (1.2-4.9) X10*3/uL Blount # (Auto) 0.4 (0.1-1.2) X10*3/uL Eos # (Auto) 0.0 (0.0-0.4) X10*3/uL Baso # (Auto) 0.0 (0.0-0.2) X10*3/uL Abs Immat Gran (auto) 0.03 (0.00-0.03) X10*3/uL Absolute Neuts (auto) 1.5 L (2.0-8.3) x10*3/uL Absolute Nucleated RBC 0.000 (0.0-0.012) X10*3/uL Nucleated RBC % (auto) 0.0 (0.0-0.2) /100WBC Sodium 137 (135-145) mmol/L Potassium 4.5 (3.3-5.1) mmol/L Chloride 113 H (96-108) mmol/L Carbon Dioxide 18 L (22-29) mmol/L Anion Gap 11 L (12-20) BUN 14 (9-16) mg/dL Creatinine 1.04 (0.5-1.4) mg/dL Estim Creat Clear Calc 64.5 Estimated GFR > 60 Random Glucose 87 (60-115) mg/dL Calcium 9.4 (8.4-10.2) mg/dL Magnesium 2.4 (1.6-2.6) mg/dL Total Bilirubin 0.6 (0.0-1.0) mg/dL Direct Bilirubin 0.3 (0.0-0.5) mg/dL AST 24 (5-37) U/L ALT 18 (0-40) U/L Alkaline Phosphatase 107 (39-117) U/L Troponin I High Sens < 2.7 (<3.5-35.0) ng/L Total Protein 7.3 (6.5-8.0) g/dL Albumin 3.6 (3.5-5.0) g/dL Lipase 14 (8-78) U/L Discharge Plan Discharge Clinical Impression: Diagnosis unknown Patient Disposition: Left W/O Completing Treatment Prescriptions: No Action metoprolol succinate 100 mg tablet extended release 24 hr 100 mg PO DAILY Qty: 90 0RF Rx Instructions: Overdue for appt. Please call [phone] to schedule appt for 2022 so we can continue refilling future refills. acetaminophen [Tylenol Extra Strength] 500 mg tablet 500 mg PO Q6H PRN (Reason: fever or pain) Qty: 14 0RF cyclobenzaprine 5 mg tablet 5 mg PO TID PRN (Reason: muscle spasm) Qty: 10 0RF lidocaine 5 % adhesive patch,medicated 1 patch topical DAILY Qty: 15 0RF Rx Instructions: leave on most painful area for up to 12 hrs tramadol 50 mg tablet 50 mg PO Q12H PRN (Reason: Pain) nabumetone 750 mg tablet 750 mg PO BID tadalafil 20 mg tablet 20 mg PO DAILY PRN (Reason: Erectile Dysfunction) multivitamin Tablet 1 tab PO DAILY diclofenac sodium 1 % gel 2 g topical BID Benefiber Clear SF (dextrin) 3 gram/3.5 gram powder in packet 1 packet PO DAILY Qty: 28 5RF Rx Instructions: mix into at least 4 oz water or juice before administering hydrocortisone [Proctosol HC] 2.5 % cream with perineal applicator 1 appl TN BID-QID PRN (Reason: hemorrhoids) Qty: 30 2RF sennosides [Natural Senna Laxative] 8.6 mg tablet 17.2 mg PO BEDTIME Qty: 90 3RF omeprazole 40 mg capsule,delayed release(DR/EC) 40 mg PO DAILY Qty: 90 2RF cholecalciferol (vitamin D3) 50 mcg (2,000 unit) tablet 50 mcg PO DAILY docusate sodium 100 mg capsule 100 mg PO BEDTIME Qty: 30 3RF famotidine [Pepcid] 20 mg tablet 20 mg PO BEDTIME Qty: 90 3RF Discharge Date/Time: 02/02/25 20:16
--- NOTE | 2025-02-02 14:06 | ECG_ITS ---
Test Reason : ABD PAIN Blood Pressure : */* mmHG Vent. Rate : 51 BPM Atrial Rate : 51 BPM P-R Int : 208 ms QRS Dur : 92 ms QT Int : 430 ms P-R-T Axes : 16 -14 37 degrees QTcB Int : 396 ms Sinus bradycardia Otherwise normal ECG When compared with ECG of 14-Dec-2024 18:43, Vent. rate has decreased by 37 bpm Referred By: Karina Noble Electronically Signed By: LILIANA WEBSTER
[2025-02-02 15:10] LABS: MANUAL DIFF FLAG NO
[2025-02-02 15:14] LABS: Hematocrit 44.4 % (42.0-52.0); Hemoglobin 14.3 g/dl (14.0-18.0); Imm Gran Abs Auto 0.03 X10*3/uL (0.00-0.03); Imm Gran Pct Auto 0.9 % (0.0-0.4); Lymphocytes Absolute Auto 1.3 X10*3/uL (1.2-4.9); Mean Corpuscular HGB Conc 32.2 g/dl (31.0-36.0); Mean Corpuscular Hemoglobin 28.9 pg (27.0-33.0); Mean Corpuscular Volume 89.9 fL (80.0-98.0); NRBC Abs Auto 0.000 X10*3/uL (0.0-0.012); NRBC Pct Auto 0.0 /100WBC (0.0-0.2); Platelet Count 135 X10*3/uL (160-400); Red Blood Count 4.94 X10*6/uL (4.60-5.80); White Blood Count 3.3 X10*3/uL (4.8-10.8)
[2025-02-02 15:31] LABS: Alanine Aminotransferase 18 U/L (0-40); Albumin Level 3.6 g/dL (3.5-5.0); Alkaline Phosphatase 107 U/L (39-117); Anion Gap 11 (12-20); Aspartate Amino Transferase 24 U/L (5-37); Blood Urea Nitrogen 14 mg/dL (9-16); Calcium 9.4 mg/dL (8.4-10.2); Carbon Dioxide 18 mmol/L (22-29); Chloride 113 mmol/L (96-108); Creatinine Clr Calc Pharmacy 64.5; Estimated Glomerular Filt Rate > 60; Lipase 14 U/L (8-78); Magnesium 2.4 mg/dL (1.6-2.6); Potassium 4.5 mmol/L (3.3-5.1); Sodium 137 mmol/L (135-145); Total Protein 7.3 g/dL (6.5-8.0)
[2025-02-02 15:33] LABS: Troponin-I High Sensitivity < 2.7 ng/L (<3.5-35.0)
--- OUTSIDE RECORDS SUMMARY | 2025-02-02 19:13 | XMS_ITS | Encounter Summary ---
Author Organization [employer] Address [address] [facility] [address] [place] [address] Care Team Providers Care Crew Attendant Name Role Phone Name, Amado FONG Primary Care Provider [phone] Encounter Details Date Type Department Care Team ([facility] st Contact Info) Description 12/16/2024 Telephone [facility] [address] [place], [place] [phone] Name, MD Amado [address] [place] [address] Social History Tobacco Use Types Packs/Day Years Used Date Smoking Tobacco: Former Cigarettes Passive Smoke Exposure: Past Smokeless Tobacco: Never Alcohol Use Standard Drinks/Week [...] as of this encounter Plan of Treatment Upcoming Encounters Date Type Department Care Team (Late st Contact Info) Description 02/09/2025 11:30 AM EDT Telemedicine [facility] [address] [place] [address] documented as of this encounter Visit Diagnoses Not on filedocumented in this encounter Additional Health Concerns Assessment Noted Time PHQ-9 Depression Total Score: 0 01/26/20 24 9:24 AM EDT documented as of this encounter Care Teams Crew Attendant Relationship Specialty Start Date End Date Name, MD Amado [address] [place] [address] PCP - General Family Medicine 12/03/16 documented as of this encounter
--- OUTSIDE RECORDS SUMMARY | 2025-02-02 19:13 | XMS_ITS | Encounter Summary ---
Author Organization [employer] Address [address] [facility] [address] [place] [address] Care Team Providers Care Purchasing/Receiving Name Role Phone Name, Amado FONG Primary Care Provider [phone] Reason for Visit * Reason Comments Med Refill Encounter Details Date Type Department Care Team ([facility] st Contact Info) Description 04/01/2023 Refill [facility] [address] [place], [place] [phone] Name, MD Amado [address] [place] [address] Heartburn Social History Tobacco Use Types Packs/Day [...] Info) Description 02/09/2025 11:30 AM EDT Telemedicine [facility] [address] [place] [address] documented as of this encounter Visit Diagnoses Diagnosis Heartburn documented in this encounter Additional Health Concerns Assessment Noted Time PHQ-9 Depression Total Score: 0 11/05/19 23 10:06 AM EDT documented as of this encounter Care Teams Purchasing/Receiving Relationship Specialty Start Date End Date Name, MD Amado [address] [place] [address] PCP - General Family Medicine 12/03/16 documented as of this encounter
--- OUTSIDE RECORDS SUMMARY | 2025-02-02 19:13 | XMS_ITS | Encounter Summary ---
Author Organization [employer] Address [address] [facility] [address] [place] [address] Care Team Providers Care Infertility Medical Assistant Name Role Phone Name, Amado FONG Primary Care Provider [phone] Encounter Details Date Type Department Care Team (Late st Contact Info) Description 10/07/2022 Orders Only [facility] [address], [place] [phone] Berenice Tena LPN Social History Tobacco Use [...] Description 02/09/2025 11:30 AM EDT Telemedicine [facility] MEDICINE [address] [place] [address] documented as of this encounter Procedures Procedure [...] Natriuretic Peptide (BNP) (05/22/2023 12:25 AM EST) [facility] B Type Natriuretic Peptide 53 <100 pg/mL [facility] Comment:For those patients w ho are being treated with Natrecor(nesiritide, recombinant BNP), BNP testing should beperformed at least two hours post treatment in order toensure that only endogenous levels of BNP are detected. 05/22/2023 12:2 5 AM EST 05/22/2023 12:29 AM EST us Generic External Data Provider LAB BLOOD ORDERAB LES Final Result [facility] [address] [place] [phone] * D Dimer High Sensitivity (05/22/2023 12:25 AM EST) Pathologist [facility] [place] D Dimer High Sensitivity 299 NG/ML [facility] Comment:D-DIMER HS REFERENCE RANGENote: Our [...] ORDERAB LES Final Result Performing Organization Address [facility] de Phone Number [facility] [address] [place] [phone] * Prothrombin Time-INR (05/22/2023 12:25 AM EST) Prothrombin Time 11.8 11.1 - 13.3 SEC [facility] INTERNATIONAL NORM RATIO 1.0 0.9 - 1.1 [facility] Comment:INTERNATIONAL NORMAL IZED RATIO (INR) [...] 5 AM EST 05/22/2023 12:29 AM EST [facility] External Data Provider LAB BLOOD ORDERAB LES Final Result Performing Organization Address [facility] de Phone Number [facility] [address] [place] [phone] * High Sensitivity Troponin I (05/21/2023 10:52 PM EST) Pathologist [facility] [place] TROPONIN I HIGH SENSITIVITY <2.7 <3.5 - 35.0 ng/L [facility] Comment:The Fierro high sens itivity Troponin-I results should beused in conjunction with other diagnostic information suchas ECG, clinical observations and information, and patientsymptoms to aid in the diagnosis of PA. 05/21/2023 10:5 2 PM EST 05/21/2023 10:54 PM EST Generic External Data Provider LAB BLOOD ORDERAB LES Final Result Performing Organization Address [facility]/ZIP Co de Phone Number [facility] [address] [place] [address] [phone] * Basic Metabolic Panel (05/21/2023 10:52 PM EST) Sodium 137 135 - 145 mmol/L [facility] Potassium 4.0 3.3 - 5.1 mmol/L [facility] Chloride 105 96 - 108 mmol/L [facility] Carbon Dioxide 24 22 - 29 mmol/L [facility] Anion Gap 12 12 - 20 [facility] Urea Nitrogen (BUN) 14 9 - 16 mg/dL [facility] Creatinine, Serum 1.21 0.5 - 1.4 mg/dL [facility] Creatinine Clr Calc Pharmacy 58.7 [facility] Comment:eGFR (calculated fro m the MDRD study equation) and eCrCl(calculated from the Cockcroft-Gault equation) are based ondifferent parameters and may not yield comparable results.If eCrCl result is absurd, please check patient'sheight/weight. Estimated Glomerular Filt Rate 58 [facility] Comment:NOTE: For -Am erican individuals, multiply the result by 1.210.Chronic Kidney Disease: Estimated GFR < 60 mL/min/1.41l5Cegjvw Kidney Disease: Estimated GFR < 15 mL/min/1.73m2 Glucose 108 60 - 115 mg/dL [facility] Calcium 9.9 8.4 - 10.2 mg/dL [facility] 05/21/2023 10:5 2 PM EST 05/21/2023 10:54 PM EST us Generic External Data Provider LAB BLOOD ORDERAB LES Final Result Performing Organization Address [facility]/ZIP Co de Phone Number [facility] [address] [place] [phone] * (ABNORMAL) CBC auto differential (05/21/2023 10:52 PM EST) White Blood Count 4.8 4.8 - 10.8 X10*3/uL [facility] Red Blood Count 4.83 4.60 - 5.80 X10*6/uL [facility] Hemoglobin 13.9(L) 14.0 - 18.0 g/dl [facility] Hematocrit 42.1 42.0 - 52.0 % [facility] Mean Corpuscular Volume 87.2 80.0 - 98.0 fL [facility] Mean Corpuscular Hemoglobin 28.8 27.0 - 33.0 pg [facility] Mean Corpuscular HGB Conc 33.0 31.0 - 36.0 g/dl [facility] Red Cell Distribution Width 13.9 11.0 - 16.0 % [facility] Platelet Count 182 160 - 400 X10*3/uL [facility] Mean Platelet Volume 9.5 9.4 - 12.4 fL [facility] Neutrophils Percent Auto 55.9 45 - 73 % [facility] Imm Gran Pct Auto 1.7(H) 0.0 - 0.4 % [facility] Lymphocytes Percent Auto 31.0 20 - 40 % [facility] Monocytes Percent Auto 9.8 2 - 11 % [facility] Eosinophils Percent Auto 1.0 0 - 4 % [facility] Basophils Percent Auto 0.6 0 - 2 % [facility] NRBC Pct Auto 0.0 0.0 - 0.2 /100WBC [facility] Neutrophils Absolute Auto 2.7 2.0 - 8.3 x10*3/uL [facility] Imm Gran Abs Auto 0.08(H) 0.00 - 0.03 X10*3/uL [facility] Lymphocytes Absolute Auto 1.5 1.2 - 4.9 X10*3/uL [facility] Monocytes Absolute Auto 0.5 0.1 - 1.2 X10*3/uL [facility] Eosinophils Absolute Auto 0.1 0.0 - 0.4 X10*3/uL [facility] Basophils Absolute Auto 0.0 0.0 - 0.2 X10*3/uL [facility] NRBC Abs Auto 0.000 0.0 - 0.012 X10*3/uL [facility] 05/21/2023 10:5 2 PM EST 05/21/2023 10:54 PM EST Generic External Data Provider LAB BLOOD ORDERAB LES Final Result Performing Organization Address [facility] Co de Phone Number [facility] [address] [place] [phone] * SARS-CoV-2 RNA, Influenza A/B, and RSV RNA, Ql NAAT (05/11/2023 5:02 PM EST) Influenza A PCR NEGATIVE Negative [facility] Influenza B PCR NEGATIVE Negative [facility] Resp Syncy Virus RNA Qual PCR NEGATIVE Negative [facility] SARS COV2 PCR NEGATIVE Negative [facility] Comment:All test results mus t [...] use by authorized laboratories.Testing performed on the Xolve GeneXpert utilizingreal-time RT-PCR.All SARS CoV2 and positive influenza A/B results arereported to [facility]. 05/11/2023 5:02 PM EST 05/11/2023 5:08 PM EST Generic External Data Provider LAB MICROBIOLOGY - GENERAL ORDERABLES Final Result Performing Organization Address [facility] Co de Phone Number [facility] [address] [place] [phone] * Urinalysis w/reflex microscopic (05/11/2023 5:02 PM EST) Color Urine Yellow [facility] Appearance Urine Clear [facility] PH 5.5 5.0 - 9.0 [facility] Glucose Urine UA Negative Negative mg/dL [facility] Urine Blood Negative Negative [facility] Specific [place] - Urine 1.010 1.005 - 1.025 [facility] Urine Protein Negative Neg-Trace mg/dL [facility] Urine Ketones Negative Negative mg/dL [facility] Nitrite Urine Negative Negative [facility] Leukocyte Esterase Urine Negative Negative [facility] 05/11/2023 5:02 PM EST 05/11/2023 5:08 PM EST Narrative [facility] - 05/11/2023 5:27 PM EST [id number], Clean Catch Generic External Data Provider LAB URINE ORDERAB LES Final Result Performing Organization Address [facility] Co de Phone Number [facility] [address] [place] [phone] * Strep A Nucleic Acid (05/11/2023 5:02 PM EST) [employer]NOW SERIAL# [id number] [facility] Strep A Nucleic Acid Negative Negative [facility] Comment:All test results mus t be correlated with clinical findings.This test has not been evaluated for monitoring treatment ofinfection.Additional follow-up testing using the culture method isrequired if the result is negative and clinical symptomspersist, or in the event of an acute rheumatic feveroutbreak. 05/11/2023 5:02 PM EST 05/11/2023 5:08 PM EST us Generic External Data Provider LAB MICROBIOLOGY - GENERAL ORDERABLES Final Result Performing Organization Address [facility] Co de Phone Number [facility] [address] [place] [phone] documented in this encounter Visit Diagnoses Not on filedocumented in this encounter Care Teams Infertility Medical Assistant Relationship Specialty Start Date End Date Name, MD Amado [address] [place] [phone] PCP - General Family Medicine 12/03/16 documented as of this encounter
--- OUTSIDE RECORDS SUMMARY | 2025-02-02 19:13 | XMS_ITS | Encounter Summary ---
Author Organization [employer] Address [address] [facility] [address] [place] [address] Care Team Providers Care Corporate Strategist Name Role Phone Name, Amado FONG Primary Care Provider [phone] Encounter Details Date Type Department Care Team (Latest Contact Info) Description 02/02/2025 Travel Social History Tobacco Use Types Packs/Day Years [...] Info) Description 02/09/2025 11:30 AM EDT Telemedicine [facility] [address] [place] [address] documented as of this encounter Visit Diagnoses Not on filedocumented in this encounter Additional Health Concerns Assessment Noted Time PHQ-9 Depression Total Score: 0 01/26/20 24 9:24 AM EDT documented as of this encounter Care Teams Corporate Strategist Relationship Specialty Start Date End Date Name, MD Amado [address] [place] [address] PCP - General Family Medicine 12/03/16 documented as of this encounter
--- OUTSIDE RECORDS SUMMARY | 2025-02-02 19:13 | XMS_ITS | Clinical Summary ---
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 [...] 108 07/20/2024 6:29 PM EDT Temperature 36.9 C (98.4 F) 07/20/2024 6:29 PM EDT Respiratory Rate 18 07/20/2024 6:29 PM EDT Oxygen Saturation 96% 07/20/2024 6:42 PM EDT Inhaled Oxygen Concentration - - Weight 92.1 kg (203 lb) 07/20/2024 6:29 PM EDT Height 180.3 cm (5' 11 ) 07/20/2024 6:29 PM EDT Body Mass Index 28.31 07/20/2024 6:29 PM EDT Plan of Treatment Health Maintenance Due Date Last Done Comments Zoster Vaccines (1 of 2) 01/04/1994 RSV Immunization Adult Patients (1 - 1-dose 75+ series) 01/04/2019 Falls Risk Assessment 04/07/2022 Medicare Annual Wellness Visit 04/07/2022 Social Influencers of Health Screening 04/07/2022 Depression Screening 05/05/2024 COVID-19 Vaccine ( season) 2025 04/11/2021, 07/14/2020, 06/23/2020 Influenza Vaccine (#1) 2025 , 02/07/2023, 01/16/2022, Additional history exists Hypertension/CHF/CAD Annual BMP Blood Test 07/20/2025 07/20/2024, 02/16/2024 Cholesterol Screening (Lipid Panel) 02/15/2029 02/16/2024 DTaP,Tdap,and Td Vaccines (5 - Td or Tdap) 02/07/2033 02/07/2023, 10/15/2012, 10/15/2012, Additional history exists Pneumococcal Vaccine: 50+ Years Completed 05/11/2019, 02/07/2017, 05/23/2014, Additional history exists HIB Vaccines Aged Out [...] Procedure Name Priority Date/Time Associated Diagnosis Comments COMPREHENSIVE METABOLIC PANEL STAT 07/20/2024 6:34 PM EDT from Last 3 Months or Most Recently Relevant to Health Maintenance Results * (ABNORMAL) Comprehensive metabolic panel (07/20/2024 6:34 PM EDT) Sodium 141 133 - 145 mmol/L LAB CHEMISTRY METHOD 07/20/2024 7:19 PM [facility] Potassium 4.0 3.5 - 5.5 mmol/L LAB CHEMISTRY METHOD 07/20/2024 7:19 PM [facility] Chloride 110 96 - 110 mmol/L LAB CHEMISTRY METHOD 07/20/2024 7:19 PM [facility] CO2 23 21 - 32 mmol/L LAB CHEMISTRY METHOD 07/20/2024 7:19 PM [facility] Anion Gap 8 3 - 11 LAB CHEMISTRY METHOD 07/20/2024 7:19 PM [facility] Glucose 104(H) 70 - 100 mg/dL LAB CHEMISTRY METHOD 07/20/2024 7:19 PM [facility] BUN 16 5 - 25 mg/dL LAB CHEMISTRY METHOD 07/20/2024 7:19 PM [facility] Creatinine 1.28 0.70 - 1.30 mg/dL LAB CHEMISTRY METHOD 07/20/2024 7:19 PM [facility] eGFR 57(L) >=60 mL/min/1. 73m2 LAB CHEMISTRY METHOD 07/20/2024 7:19 PM [facility] Comment:Calculation based on the Chronic Kidney Disease Epidemiology Collaboration (CKD-EPI) equation refit without adjustment for race. BUN/Creatinine Ratio 12.5 LAB CHEMISTRY METHOD 07/20/2024 7:19 PM [facility] Calcium 9.9 8.5 - 10.5 mg/dL LAB CHEMISTRY METHOD 07/20/2024 7:19 PM [facility] AST (SGOT) 18 10 - 42 unit/L LAB CHEMISTRY METHOD 07/20/2024 7:19 PM [facility] ALT (SGPT) 28 10 - 60 unit/L LAB CHEMISTRY METHOD 07/20/2024 7:19 PM [facility] Alkaline Phosphatase 109 42 - 121 unit/L LAB CHEMISTRY METHOD 07/20/2024 7:19 PM [facility] Total Protein 7.5 6.0 - 8.0 g/dL LAB CHEMISTRY METHOD 07/20/2024 7:19 PM [facility] Albumin 3.8 3.2 - 5.0 g/dL LAB CHEMISTRY METHOD 07/20/2024 7:19 PM [facility] Total Bilirubin 0.4 0.0 - 1.4 mg/dL LAB CHEMISTRY METHOD 07/20/2024 7:19 PM [facility] Blood Venous blood specimen / Unknown Venipuncture / Unknown 07/20/2024 6:34 PM EDT 07/20/2024 6:50 PM EDT Richard Daly MD LAB BLOOD ORDERABLES Final Resu lt [facility] [address] [place] [address], from Last 3 Months or Most Recently Relevant to Health Maintenance Insurance [employer] MEDICARE MEDICAID - [place] Care Teams Press Tool Maker Relationship Specialty Start Date End Date Teri Geiger MD [address] [facility] , [facility] [address] [facility] Physician [facility] D[facility]B/A: [facility] [place], [place] PCP - General 04/07/20
--- OUTSIDE RECORDS SUMMARY | 2025-02-02 19:13 | XMS_ITS | Encounter Summary ---
Author Organization [employer] [facility] Address [address] [place] [address] [address] [place] [address] Care Team Providers Care Mortgage Accounting Clerk Name Role Phone Name, Amado FONG Primary Care Provider [phone] Reason for Visit * Reason Comments Med Refill Encounter Details Date Type Department Care Team (Late st Contact Info) Description 10/01/2022 Refill [facility]INE [address] [place] [address] [phone] Name, MD Amado [address] [place] [phone] Heartburn Social History Tobacco Use Types Packs/Day [...] Info) Description 02/09/2025 11:30 AM EDT Telemedicine [facility] [address] [place] [address] [phone] documented as of this encounter Visit Diagnoses Diagnosis Heartburn documented in this encounter Care Teams Mortgage Accounting Clerk Relationship Specialty Start Date End Date Amado Booth MD [address] [place] [phone] PCP - General Family Medicine 12/03/16 documented as of this encounter
--- OUTSIDE RECORDS SUMMARY | 2025-02-02 19:13 | XMS_ITS | Encounter Summary ---
Author Organization [employer] [facility] Address [address] [place] [address] [address] [place] [address] Care Team Providers Care Fingernail Technician Name Role Phone Name, Amado FONG Primary Care Provider [phone] Encounter Details Date Type Department Care Team (Late st Contact Info) Description 04/24/2022 Orders Only [facility] [address] [place] [address] Priti Anderson LPN Social History Tobacco Use [...] Info) Description 02/09/2025 11:30 AM EDT Telemedicine [facility] [address] [place] [address] documented as of this encounter Visit Diagnoses Not on filedocumented in this encounter Care Teams Fingernail Technician Relationship Specialty Start Date End Date Name, MD Amado [address] [place] [address] PCP - General Family Medicine 12/03/16 documented as of this encounter
--- OUTSIDE RECORDS SUMMARY | 2025-02-02 19:13 | XMS_ITS | Clinical Summary ---
Author Organization [employer] Address [address] [place] [address] [address] [place] [address] Care Team Providers Care Lsw Name Role Phone Name, Amado FONG Primary Care Provider [phone] Allergies No known active allergies Medications esomeprazole (NexIUM) [address] capsule Take 40 mg by mouth Once per day. 3 Active Bisacodyl EC 5 MG EC tablet 3 Active aspirin 81 MG chewable tablet Chew. Acti ve cholecalciferol (Vitamin D-3) 50 MCG (1999) tablet TAKE 1 TABLET BY MOUTH EVERY DAY 90 tablet 1 4 Active Diclofenac Sodium 1 % gel APPLY 2 GRAMS TOPICALLY TO THE AFFECTED AREA(S) TWICE DAILY 100 g 3 4 Active Multiple Vitamin (One-Daily Multi-Vitamin) tablet TAKE 1 TABLET BY MOUTH EVERY DAY WITH FOOD 90 tablet 3 5 Active tadalafil (Cialis) 20 MG tablet Take 1 tablet (20 mg) by mouth if needed each day for erectile dysfunction. 15 tablet 4 5 Active metoprolol succinate XL (Toprol-XL) 100 MG 24 hr tablet Take 1 tablet (100 mg) by mouth Once per day. 30 tablet 11 5 12/15/19 26 Active carbamide peroxide (Debrox) 6.5 % otic solution Administer 3-5 drops into affected ear(s) 2 times daily for 4 days. 15 mL 5 01/30/20 25 Active Problems Problem Noted Date Diagnosed Date Hypertension 09/02/2023 Impingement syndrome of right shoulder 02/07/06/11/2023 Microscopic hematuria 06/11/2023 06/11/2023 PVC's (premature ventricular contractions) 06/1106/11/2023 Abnormal MRI, lumbar spine 09/26/2022 SVT (supraventricular tachycardia) 09/26/2022 Overview (06/11/2023): h/o of transient post op afib after cholecystectomy Chronic low back pain 09/26/2022 Heartburn 09/26/2022 History of cholecystectomy 09/26/2022 Numbness of lower limb 09/26/2022 Osteoarthritis 09/26/2022 Vitamin D deficiency 09/26/2022 Benign prostatic hyperplasia 03/03/2018 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 Palpitations 07/17/2017 Impotence 12/03/2016 Peripheral venous insufficiency 12/03/2016 Resolved Problems Problem Noted Date Diagnosed Date Resolved Date Chest tightness 06/11/2023 06/11/2023 06/11/2023 Conjunctivitis 06/11/2023 06/11/2023 01/25/2025 Contusion of rib 06/11/2023 06/11/2023 01/25/2025 Nasal congestion 04/02/2023 01/25/2025 Upper respiratory tract infection 04/02/2023 01/25/2025 Assessment & Plan (04/02/2023 3:39 PM EST): -Symptoms consistent with viral URI- -COVID, FLU, RSV negative -cough suppressant rx sent to pharmacy -Increase fluid intake and get plenty of rest Salt water gargles -Return to [facility] or ER if develop fever or symptoms worsen or persist Cholecystitis 09/26/2022 01/25/2025 Onychomycosis 09/26/2022 11/04/2022 Pain in throat 09/26/2022 01/25/2025 Encounters Date Type Department Care Team Description 02/02/2025 Travel 01/25/2025 3:15 PM EDT Office Visit [facility] [address] [place] [phone] Name, MD Amado Hypertension, unspecified type (Primary Dx) 01/25/2025 Travel 01/24/[address] [address] Elizabeth Mon MA chart prep 12/16/[address] [address] Amado Booth MD 12/10/[address] [phone] NameAmado MD Referral 12/10/[address] [phone] NameAmado MD Med Refill from Last 3 Months Immunizations Immunization Administration [...] Sign Reading Time Taken Comments Blood Pressure 138/85 01/25/2025 3:08 PM EDT Pulse 58 01/25/2025 2:28 PM EDT Temperature 35.7 C (96.2 F) 01/25/2025 2:28 PM EDT Respiratory Rate 12 01/25/2025 2:28 PM EDT Oxygen Saturation 98% 01/25/2025 2:28 PM EDT Inhaled Oxygen Concentration - - Weight 94.3 kg (207 lb 12.8 oz) 01/25/2025 2:28 PM EDT Height 180.3 cm (5' 11 ) 01/25/2025 2:28 PM EDT Body Mass Index 28.98 01/25/2025 2:28 PM EDT Plan of Treatment Upcoming Encounters Date Type Department Care Team (Late st Contact Info) Description 02/09/2025 11:30 AM EDT Telemedicine [facility] [address] [place], [place] [phone] Health Maintenance Due Date Last Done Comments CT Colonography 1944 FIT DNA/Cologuard 1944 FIT 1944 FOBT 1945 Sigmoidoscopy 1945 Zoster Vaccines (1 of 2) 01/04/1994 RSV Patients and Patients Aged 60 years or older (1 - 1-dose 75+ series) 01/04/2019 COVID-19 Vaccine ( season) 2025 04/11/2021, 07/14/2020, 06/23/2020, Additional history exists Influenza Vaccine (#1) 2025 , 02/07/2023, 01/16/2022, Additional history exists Depression Screening 01/25/2025 01/26/2024, 01/26/20 24 SDOH Screening 01/25/2025 01/26/2024 Alcohol/Substance Use Screening 09/13/2025 09/13/2024 Tobacco Screening 01/25/2026 01/25/2025 Colonoscopy 04/15/2028 04/15/2023 Colorectal Cancer Screening 04/15/2028 [...] Procedure Name Priority Date/Time Associated Diagnosis Comments HIGH SENSITIVITY TROPONIN I Routine 12/14/2024 7:04 PM EDT MAGNESIUM Routine 12/14/2024 7:04 PM EDT COMPREHENSIVE METABOLIC PANEL Routine 12/14/2024 7:04 PM EDT CBC WITH AUTO DIFFERENTIAL Routine 12/14/2024 7:04 PM EDT LIPID PANEL, STANDARD Routine 02/16/2024 12:26 PM EDT Hypertension, unspecified type HM COLONOSCOPY Routine 04/15/2023 from Last 3 Months or Most Recently Relevant to Health Maintenance Results * High Sensitivity Troponin I (12/14/2024 7:04 PM EDT) TROPONIN I HIGH SENSITIVITY <2.7 <3.5 - 35.0 ng/L [facility] Comment:The Fierro high sens itivity Troponin-I results should beused in conjunction with other diagnostic information suchas ECG, clinical observations and information, and patientsymptoms to aid in the diagnosis of [place]. 12/14/2024 7:04 PM EDT 12/14/2024 7:09 PM EDT us Generic External Data Provider LAB BLOOD ORDERAB LES Final Result [facility] [address] [place] [phone] * (ABNORMAL) CBC auto differential (12/14/2024 7:04 PM EDT) White Blood Count 3.9(L) 4.8 - 10.8 X10*3/uL [facility] Red Blood Count 4.70 4.60 - 5.80 X10*6/uL [facility] Hemoglobin 13.9(L) 14.0 - 18.0 g/dl [facility] Hematocrit 40.2(L) 42.0 - 52.0 % [facility] Mean Corpuscular Volume 85.5 80.0 - 98.0 fL [facility] Mean Corpuscular Hemoglobin 29.6 27.0 - 33.0 pg [facility] Mean Corpuscular HGB Conc 34.6 31.0 - 36.0 g/dl [facility] Red Cell Distribution Width 13.8 11.0 - 16.0 % [facility] Platelet Count 163 160 - 400 X10*3/uL [facility] Mean Platelet Volume 9.3(L) 9.4 - 12.4 fL [facility] Neutrophils Percent Auto 56.2 45 - 73 % [facility] Imm Gran Pct Auto 1.0(H) 0.0 - 0.4 % [facility] Lymphocytes Percent Auto 28.8 20 - 40 % [facility] Monocytes Percent Auto 13.0(H) 2 - 11 % [facility] Eosinophils Percent Auto 0.5 0 - 4 % [facility] Basophils Percent Auto 0.5 0 - 2 % [facility] NRBC Pct Auto 0.0 0.0 - 0.2 /100WBC [facility] Neutrophils Absolute Auto 2.2 2.0 - 8.3 x10*3/uL [facility] Imm Gran Abs Auto 0.04(H) 0.00 - 0.03 X10*3/uL [facility] Lymphocytes Absolute Auto 1.1(L) 1.2 - 4.9 X10*3/uL [facility] Monocytes Absolute Auto 0.5 0.1 - 1.2 X10*3/uL [facility] Eosinophils Absolute Auto 0.0 0.0 - 0.4 X10*3/uL [facility] Basophils Absolute Auto 0.0 0.0 - 0.2 X10*3/uL [facility] NRBC Abs Auto 0.000 0.0 - 0.012 X10*3/uL [facility] 12/14/2024 7:04 PM EDT 12/14/2024 7:09 PM EDT Generic External Data Provider LAB BLOOD ORDERAB LES Final Result Performing Organization Address [facility]/ZIP Co de Phone Number [facility] [address] [place] [phone] * Magnesium (12/14/2024 7:04 PM EDT) [facility] Magnesium 2.1 1.6 - 2.6 mg/dL [facility] 12/14/2024 7:04 PM EDT 12/14/2024 7:09 PM EDT Generic External Data Provider LAB BLOOD ORDERAB LES Final Result Performing Organization Address [facility] Phone Number [facility] [address] [place] [phone] * (ABNORMAL) Comprehensive Metabolic Panel (12/14/2024 7:04 PM EDT) Pathologist [facility] Sodium 142 135 - 145 mmol/L [facility] Potassium 4.1 3.3 - 5.1 mmol/L [facility] Comment:Slight Hemolysis.Int erpret result with caution. Chloride 110(H) 96 - 108 mmol/L [facility] Carbon Dioxide 22 22 - 29 mmol/L [facility] Anion Gap 14 12 - 20 [facility] Urea Nitrogen (BUN) 9 9 - 16 mg/dL [facility] Creatinine, Serum 1.01 0.5 - 1.4 mg/dL [facility] Creatinine Clr Calc Pharmacy 66.5 [facility] Comment:eGFR (calculated fro m the MDRD study equation) and eCrCl(calculated from the Cockcroft-Gault equation) are based ondifferent parameters and may not yield comparable results.If eCrCl result is absurd, please check patient'sheight/weight. Estimated Glomerular Filt Rate >60 [facility] Comment:Chronic Kidney Disea se: Estimated GFR < 60 mL/min/[id number] Kidney Disease: Estimated GFR < 15 mL/min/1.73m2 Glucose 89 60 - 115 mg/dL [facility] Calcium 9.4 8.4 - 10.2 mg/dL [facility] Bilirubin, Total 0.7 0.0 - 1.0 mg/dL [facility] Aspartate Amino Transferase 28 5 - 37 U/L [facility] Comment:Slight Hemolysis.Int erpret result with caution. Alanine Aminotransferase 30 0 - 40 U/L [facility] Total Protein 7.5 6.5 - 8.0 g/dL [facility] Albumin Level 4.2 3.5 - 5.0 g/dL [facility] Alkaline Phosphatase 112 39 - 117 U/L [facility] 12/14/2024 7:04 PM EDT 12/14/2024 7:09 PM EDT us Generic External Data Provider LAB BLOOD ORDERAB LES Final Result [facility] [address] [place] [phone] * (ABNORMAL) Lipid Panel, Standard (02/16/2024 12:26 PM EDT) Triglycerides 78 <150 mg/dL [facility] Comment:Desirable Triglyceri de: less than 150 mg/dLBorderline High Triglyceride 150-199 mg/dLHigh Triglyceride: 200-499 mg/dLVery High Triglyceride: greater than or equal to 5OO mg/dL Cholesterol 197 <200 mg/dL [facility] Comment:Desirable Cholestero l: less than 200 mg/dLBorderline High Cholesterol: 200-239 mg/dLHigh Cholesterol: greater than 239 mg/dL LDL Cholesterol Calculated 134(H) <100 mg/dL [facility] Comment:Desirable LDL: less than 100 mg/dLNear Optimal/Above Optimal LDL: 110- 129 mg/dLBorderline High LDL: 130-159 mg/dLHigh LDL: 160-189 mg/dLVery High LDL: greater than or equal to 190 mg/dL HDL Cholesterol 48 >40 mg/dL [facility] Comment:Desirable HDL: great er than 40 mg/dL Note: This HDL assay may give artificially low results in patients with liver disease. Blood Venous blood specimen / Unknown 02/16/2024 12:26 PM EDT 02/16/2024 12:26 PM EDT Amado Booth MD LAB BLOOD ORDERABLES Final Resul t [facility] [address] [place] [phone] * (ABNORMAL) Colonoscopy (04/15/2023) Colonoscopy Abnormal(A ) Normal Yeni Bhatia MD HEALTH MAINTENANCE Final Result from Last 3 Months or Most Recently Relevant to Health Maintenance [place] [address] [place] [address] STANDARD [facility] MEDICARE ADVANTAGE Care Teams Lsw Relationship Specialty Start Date End Date Name, MD Amado [address] [place] [phone] PCP - General Family Medicine 12/03/16
== END 2025-02-02 20:16 | disposition left against medical advice (07) ==
LOC: HO.ED 19:10
PROVIDERS: Physician Assistant Medical; Emergency Provider Emergency Medicine
DX: R10.9 Unspecified abdominal pain (principal); Z53.21 Procedure and treatment not carried out due to patient leaving prior to being seen by health care provider
CPT/HCPCS: 36415; 80048; 80076; 83690; 83735; 84484; 85025; 93005; 99281; 99283

== ENCOUNTER → 2025-02-02 14:06 | Outpatient (BNV) | payer MEDICARE, SELFPAY | PROVIDERS: Emergency Provider Emergency Medicine; Visit Provider Internal Medicine | DX: R00.1 Bradycardia, unspecified (principal) | CPT/HCPCS: 93010 ==

== ENCOUNTER 2025-03-28 10:50 | Outpatient (AMB) | payer MEDICARE, SELFPAY ==
--- NOTE | 2025-03-28 10:52 | A.OFFVIS_ITS ---
Vital Signs 03/28/25 11:11 Height 5 ft 11 in Weight 209 lb BMI 29.1 BP 146/74 H Blood Pressure Location Rt brachial Position Sitting Pulse 52 Pulse Source Pulse Oximeter Pulse Oximetry (%) 99 Oxygen Delivery Method Room Air Intake Visit Reasons: gerd cic Intake Note: ESTABLISHED PATIENT for GERD + CIC mgmt. Chief Complaint; C/O constipation + GERD persistence w/ associated epigastric pain, despite current therapies. Filter Press Tender Head Required: No Accompanied by: Self / Same As Patient Allergies No Known Allergies Allergy (Verified 03/28/25 10:53) HPI HPI gerd cic: Details: LAST VISIT IBS (irritable bowel syndrome) GERD (gastroesophageal reflux disease) Postprandial diarrhea Pace's esophagus determined by biopsy Plan Patient will continue taking omeprazole daily and famotidine at bedtime. Avoid dietary triggers and late night snacking. Staying upright for minimum 3 hours after meals discussed with patient. He will continue taking Senokot. Continue low FODMAP diet. Continue to exercise. Patient had normal exam overall he is feeling better. He will follow-up in 6 months, sooner on as needed basis. He is agreeable to this plan and verbalizes understanding of instructions. He was given the opportunity to ask questions and all questions answered. ? Thank you for allowing me to participate in his care Refilled omeprazole 40 mg PO DAILY 90 caps 2RF K21.9 sennosides (Natural Senna Laxative) 17.2 mg (2 x 8.6 mg) PO BEDTIME 90 tabs 3RF constipation K59.00 TODAY'S VISIT Patient is here today for requested visit. Patient reports that about a month ago he had severe abdominal pain in the epigastric area. Patient reports that he was not able to go to the bathroom well. Despite taking stool softener and senna he have a bowel movement every 3-4 days. Patient denies melena, hematoc hezia. Currently is taking omeprazole for reflux which he believes that it is helping him. Epigastric pain and severe abdominal bloating postprandially. Patient reports to feel very gassy. Patient reports a gastric pain improving after belching. Patient denies dyspepsia, dysphagia or odynophagia. Currently patient reports that he has been feeling well. Denies having any GI symptoms except for still feeling constipated. [facility] Medical History Palpitations SVT (supraventricular tachycardia) PVC's (premature ventricular contractions) Surgical History History of cholecystectomy Hx of endoscopy Hx of colonoscopy S/P ablation of ventricular arrhythmia (~2007) Family History Father CVD (cardiovascular disease) Mother No problems noted. Social History Household Members: Family Alcohol intake: never Patient Tobacco Use Status: Never used Tobacco Review of Systems Const Denies weight gain and Denies weight loss ENT Reports no additional complaints, Denies dysphagia and Denies odynophagia Card Reports no additional complaints Resp Reports no additional complaints GI Reports abdominal pain (Epigastric), Denies belching, Denies melena, Denies bloating, Denies change in bowel habits, Denies dysphagia, Denies excessive flatus, Denies dyspepsia, Denies heartburn, Denies diarrhea, Denies loose stools, Denies nausea, Denies odynophagia and Denies vomiting Reports no additional complaints Musc Reports no additional complaints Neuro Reports no additional complaints Psych Reports no additional complaints Endo Reports no additional complaints Physical Exam Const General: healthy appearing, no acute distress and well developed Nutritional Appearance: well nourished Orientation/consciousness: patient oriented x3 Resp Effort & Inspection: normal respiratory effort, able to speak in complete sentences, no tracheal deviation and symmetric chest movement Auscultation: clear to auscultation bilaterally Cardio Rate: regular rate GI Inspection: Yes normal to inspection and No distended Palpation (GI): Soft to palpation, not firm, nontender and No hepatosplenomegaly present Auscultation: normal bowel sounds General: Yes no CVA tenderness Back/Spine/Pelvis Back: no CVA tenderness Skin General skin exam: elasticity normal, turgor normal and dry skin Neuro General: patient oriented x3 Psych Appearance: grossly normal Mental Status: mental status grossly normal Assessment & Plan Assessment & Plan (1) Irritable bowel syndrome: Code(s): K58.9 - Irritable bowel syndrome, unspecified Qualifiers: Irritable bowel syndrome type: with constipation Qualified Code(s): K58.1 - Irritable bowel syndrome with constipation (2) Gastroesophageal reflux disease: Code(s): K21.9 - Gastro-esophageal reflux disease without esophagitis Qualifiers: Esophagitis presence: esophagitis presence not specified Qualified Code(s): K21.9 - Gastro-esophageal reflux disease without esophagitis (3) Postprandial diarrhea: Code(s): K52.9 - Noninfective gastroenteritis and colitis, unspecified (4) Pace's esophagus determined by biopsy: Code(s): K22.70 - Pace's esophagus without dysplasia Plan Patient will stop taking senna and start taking Linzess daily. Increase fluid intake and activity to promote bowel motility. Patient will continue taking omeprazole in the morning and will add famotidine at bedtime. Discussed with patient low FODMAP diet. List of food recommended as well as list of food to avoid given to patient. Patient will return in 2-3 weeks to re-evaluate. He will call our office if he will have any GI concerning symptoms. He is agreeable to this plan and verbalizes understanding of instructions. He was g iven the opportunity to ask questions and all questions answered. Thank you for allowing me to participate in his care Medications: New linaclotide (Linzess) 145 mcg PO DAILY 30 caps 2RF Refilled famotidine (Pepcid) 20 mg PO BEDTIME 90 tabs 3RF K21.9 - Gastro-esophageal reflux disease without esophagitis Discontinued sennosides (Natural Senna Laxative) Discontinued Reason: Doctor's Order 17.2 mg (2 x 8.6 mg) PO BEDTIME 90 tabs 3RF constipation K59.00 - Constipation, unspecified Coding Level of Care Code Est Pt Level 3 (31910) Diagnoses Irritable bowel syndrome with constipation K58.1 Irritable bowel syndrome type: with constipation Gastroesophageal reflux disease, unspecified whether esophagitis present K21.9 Esophagitis presence: esophagitis presence not specified Postprandial diarrhea K52.9 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
[2025-03-28 11:11] VITALS: BP 146/74; PULSE 52; O2SAT 99; BMI 29.1
--- OUTSIDE RECORDS SUMMARY | 2025-03-28 13:41 | XMS_ITS | Encounter Summary ---
Author Organization [employer] [facility] Address [address] [place] [address] [address] [place] [address] Care Team Providers Care Tail End Rider Name Role Phone Name, Amado FONG Primary Care Provider [phone] Reason for Visit * Reason Comments Med Refill Encounter Details Date Type Department Care Team ([facility] st Contact Info) Description 10/01/2022 Refill [facility] [address] [place], [place] [phone] Name, MD Amado [address] [place] [address] Heartburn Social History Tobacco Use Types Packs/Day [...] Heartburn documented in this encounter Care Teams Tail End Rider Relationship Specialty Start Date End Date Name, MD Amado [address] [place] [address] [phone] PCP - General Family Medicine 12/03/16 documented as of this encounter
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
--- OUTSIDE RECORDS SUMMARY | 2025-03-28 13:42 | XMS_ITS | Encounter Summary ---
Author Organization [facility] Address [address] [place] [address] [address] [place] [address] Care Team Providers Care Superintendent Refuse Disposal Name Role Phone Name, Amado FONG Primary Care Provider [phone] Encounter Details Date Type Department Care Team ([facility] st Contact Info) Description 04/24/2022 Orders Only [facility] [address] [place], [place] [phone] Priti Anderson LPN Social History Tobacco Use [...] on filedocumented in this encounter Care Teams Superintendent Refuse Disposal Relationship Specialty Start Date End Date Name, MD Amado [address] [place] [address] PCP - General Family Medicine 12/03/16 documented as of this encounter
--- OUTSIDE RECORDS SUMMARY | 2025-03-28 13:42 | XMS_ITS | Encounter Summary ---
Author Organization [employer] Address [address] [facility] [address] [place] [address] Care Team Providers Care Candy Vendor Name Role Phone Name, Amado FONG Primary Care Provider [phone] Reason for Visit * Reason Comments Med Refill Encounter Details Date Type Department Care Team ([facility] Contact Info) Description 04/01/2023 Refill [facility] [address] [place], [place] [phone] Name, MD mAado [address] [place] [address] Heartburn Social History Tobacco Use Types Packs/Day [...] documented as of this encounter Care Teams Candy Vendor Relationship Specialty Start Date End Date Name, MD Amado [address] [place] [address] PCP - General Family Medicine 12/03/16 documented as of this encounter
--- OUTSIDE RECORDS SUMMARY | 2025-03-28 13:42 | XMS_ITS | Encounter Summary ---
Author Organization [employer] Address [address] [facility] 7t [place] [address] Care Team Providers Care Specimen Boss Name Role Phone Name, Amado FONG Primary Care Provider [phone] Reason for Visit * Reason Onset Date Comments Nurse Triage 02/03/2025 Encounter Details Date Type Department Care Team ([facility] st Contact Info) Description 02/03/2025 Telephone [facility] [address] [place], [place] [phone] Name, MD Amado [address] [place] [address] Nurse Triage Social History Tobacco Use Types Packs/Day Years [...] AM EDT documented as of this encounter Miscellaneous Notes * Telephone Encounter - Yaya Fish - 02/03/2025 11:44 AM EDT Symptom: High Blood Pressure - Caller Reports Outcome: Talk to a nurse or provider within 15 minutes Reason: Severe headache Please contact pt at [phone]. (Indonesian Speaker) documented in this encounter Plan of Treatment Not on file documented as of this encounter Visit Diagnoses Not on filedocumented in this encounter Additional Health Concerns Assessment Noted Time PHQ-9 Depression Total Score: 0 01/26/20 24 9:24 AM EDT documented as of this encounter Care Teams Specimen Boss Relationship Specialty Start Date End Date Name, MD Amado [address] [place] [address] PCP - General Family Medicine 12/03/16 documented as of this encounter
--- OUTSIDE RECORDS SUMMARY | 2025-03-28 13:42 | XMS_ITS | Encounter Summary ---
Author Organization [employer] Address [address] [facility] [address]t [place] [address] Care Team Providers Care Clinical Application Manager Name Role Phone Name, Amado FONG Primary Care Provider [phone] Encounter Details Date Type Department Care Team (Late st Contact Info) Description 10/07/2022 Orders Only [facility] [address] [place] [address] Berenice Tena LPN Social History Tobacco Use [...] Peptide (BNP) (05/22/2023 12:25 AM EST) Pathologist [facility] B Type Natriuretic Peptide 53 <100 pg/mL [facility] Comment:For those patients w ho are being treated with Natrecor(nesiritide, recombinant BNP), BNP testing should beperformed at least two hours post treatment in order toensure that only endogenous levels of BNP are detected. 05/22/2023 12:2 5 AM EST 05/22/2023 12:29 AM EST us Generic External Data Provider LAB BLOOD ORDERAB LES Final Result Performing Organization Address [facility] Co de Phone Number [facility] [address] [place] [address] [phone] * D Dimer High Sensitivity (05/22/2023 12:25 AM EST) [facility] D Dimer High Sensitivity 299 NG/ML [facility] Comment:D-DIMER HS REFERENCE RANGENote: Our [...] ORDERAB LES Final Result Performing Organization Address [facility]/ZIP Co de Phone Number [facility] [address] [place] [phone] * Prothrombin Time-INR (05/22/2023 12:25 AM EST) Pathologist [facility] Prothrombin Time 11.8 11.1 - 13.3 SEC [facility] INTERNATIONAL NORM RATIO 1.0 0.9 - 1.1 [facility] Comment:INTERNATIONAL NORMAL IZED RATIO (INR) [...] ORDERAB LES Final Result Performing Organization Address [facility] Co de Phone Number [facility] [address] [place] [phone] * High Sensitivity Troponin I (05/21/2023 10:52 PM EST) [facility] TROPONIN I HIGH SENSITIVITY <2.7 <3.5 - 35.0 ng/L [facility] Comment:The Fierro high sens itivity Troponin-I results should beused in conjunction with other diagnostic information suchas ECG, clinical observations and information, and patientsymptoms to aid in the diagnosis of OR. 05/21/2023 10:5 2 PM EST 05/21/2023 10:54 PM EST us Generic External Data Provider LAB BLOOD ORDERAB LES Final Result Performing Organization Address [facility] Co de Phone Number [facility] [address] [place] [phone] * Basic Metabolic Panel (05/21/2023 10:52 PM EST) Pathologist [facility] Sodium 137 135 - 145 mmol/L [facility] Potassium 4.0 3.3 - 5.1 mmol/L [facility] Chloride 105 96 - 108 mmol/L [facility] Carbon Dioxide 24 22 - 29 mmol/L [facility] Anion Gap 12 12 - 20 [facility] Urea Nitrogen (BUN) 14 9 - 16 mg/dL [facility] Creatinine, Serum 1.21 0.5 - 1.4 mg/dL [facility] Creatinine Clr Calc Pharmacy 58.7 [facility] Comment:eGFR (calculated fro m the MDRD study equation) and eCrCl(calculated from the Cockcroft-Gault equation) are based ondifferent parameters and may not yield comparable results.If eCrCl result is absurd, please check patient'sheight/weight. Estimated Glomerular Filt Rate 58 [facility] Comment:NOTE: For -Am erican individuals, multiply the result by 1.210.Chronic Kidney Disease: Estimated GFR < 60 mL/min/1.03e5Lfcuwp Kidney Disease: Estimated GFR < 15 mL/min/1.73m2 Glucose 108 60 - 115 mg/dL [facility] Calcium 9.9 8.4 - 10.2 mg/dL [facility] 05/21/2023 10:5 2 PM EST 05/21/2023 10:54 PM EST us Generic External Data Provider LAB BLOOD ORDERAB LES Final Result [facility] [address] [place] [phone] * (ABNORMAL) CBC auto differential (05/21/2023 10:52 PM EST) Pathologist [facility] White Blood Count 4.8 4.8 - 10.8 X10*3/uL [facility] Red Blood Count 4.83 4.60 - 5.80 X10*6/uL [facility] Hemoglobin 13.9(L) 14.0 - 18.0 g/dl [facility] Hematocrit 42.1 42.0 - 52.0 % [facility] Mean Corpuscular Volume 87.2 80.0 - 98.0 fL [facility] Mean Corpuscular Hemoglobin 28.8 27.0 - 33.0 pg [facility] Mean Corpuscular HGB Conc 33.0 31.0 - 36.0 g/dl [facility] Red Cell Distribution Width 13.9 11.0 - 16.0 % [facility] Platelet Count 182 160 - 400 X10*3/uL [facility] Mean Platelet Volume 9.5 9.4 - 12.4 fL [facility] Neutrophils Percent Auto 55.9 45 - 73 % [facility] Imm Gran Pct Auto 1.7(H) 0.0 - 0.4 % [facility] Lymphocytes Percent Auto 31.0 20 - 40 % [facility] Monocytes Percent Auto 9.8 2 - 11 % [facility] Eosinophils Percent Auto 1.0 0 - 4 % [facility] Basophils Percent Auto 0.6 0 - 2 % [facility] NRBC Pct Auto 0.0 0.0 - 0.2 /100WBC [facility] Neutrophils Absolute Auto 2.7 2.0 - 8.3 x10*3/uL [facility] Imm Gran Abs Auto 0.08(H) 0.00 - 0.03 X10*3/uL [facility] Lymphocytes Absolute Auto 1.5 1.2 - 4.9 X10*3/uL [facility] Monocytes Absolute Auto 0.5 0.1 - 1.2 X10*3/uL [facility] Eosinophils Absolute Auto 0.1 0.0 - 0.4 X10*3/uL [facility] Basophils Absolute Auto 0.0 0.0 - 0.2 X10*3/uL [facility] NRBC Abs Auto 0.000 0.0 - 0.012 X10*3/uL [facility] 05/21/2023 10:5 2 PM EST 05/21/2023 10:54 PM EST Generic External Data Provider LAB BLOOD ORDERAB LES Final Result Performing Organization Address [facility] Co de Phone Number [facility] [address] [place] [phone] * SARS-CoV-2 RNA, Influenza A/B, and RSV RNA, Ql NAAT (05/11/2023 5:02 PM EST) Influenza A PCR NEGATIVE Negative [facility] Influenza B PCR NEGATIVE Negative [facility] Resp Syncy Virus RNA Qual PCR NEGATIVE Negative [facility] SARS COV2 PCR NEGATIVE Negative [facility] Comment:All test results mus [...] use by authorized laboratories.Testing performed on the [employer] GeneXpert utilizingreal-time RT-PCR.All SARS CoV2 and positive influenza A/B results arereported to [facility]. 05/11/2023 5:02 PM EST 05/11/2023 5:08 PM EST Generic External Data Provider LAB MICROBIOLOGY - GENERAL ORDERABLES Final Result Performing Organization Address [facility] Co de Phone Number [facility] [address] [place] [phone] * Urinalysis w/reflex microscopic (05/11/2023 5:02 PM EST) Color Urine Yellow [facility] Appearance Urine Clear [facility] PH 5.5 5.0 - 9.0 [facility] Glucose Urine UA Negative Negative mg/dL [facility] Urine Blood Negative Negative [facility] Specific [place] - Urine 1.010 1.005 - 1.025 [facility] Urine Protein Negative Neg-Trace mg/dL [facility] Urine Ketones Negative Negative mg/dL [facility] Nitrite Urine Negative Negative [facility] Leukocyte Esterase Urine Negative Negative [facility] 05/11/2023 5:02 PM EST 05/11/2023 5:08 PM EST Narrative [facility] - 05/11/2023 5:27 PM EST [id number], Clean Catch Generic External Data Provider LAB URINE ORDERAB LES Final Result Performing Organization Address [facility] de Phone Number [facility] [address] [place] [phone] * Strep A Nucleic Acid (05/11/2023 5:02 PM EST) Pathologist [facility] IDEDWIGEW SERIAL# [id number] [facility] Strep A Nucleic Acid Negative Negative [facility] Comment:All test results mus [...] GENERAL ORDERABLES Final Result Performing Organization Address [facility] Co de Phone Number [facility] [address] [place] [phone] documented in this encounter Visit Diagnoses Not on filedocumented in this encounter Care Teams Clinical Application Manager Relationship Specialty Start Date End Date Name, MD Amado [address] [place] [phone] PCP - General Family Medicine 12/03/16 documented as of this encounter
== END 2025-03-28 11:44 | disposition home or self-care (01) ==
LOC: HO.HGI 10:51
PROVIDERS: Visit Provider Nurse Practitioner Family
DX: K52.9 Noninfective gastroenteritis and colitis, unspecified (principal); K21.9 Gastro-esophageal reflux disease without esophagitis; K22.70 Barrett's esophagus without dysplasia
CPT/HCPCS: 99213

== ENCOUNTER → 2025-03-28 10:50 | Outpatient (BNVA) | payer MEDICARE, SELFPAY | PROVIDERS: Visit Provider Nurse Practitioner Family | DX: K21.9 Gastro-esophageal reflux disease without esophagitis (principal); K59.04 Chronic idiopathic constipation; K58.1 Irritable bowel syndrome with constipation; K22.70 Barrett's esophagus without dysplasia | CPT/HCPCS: 99212 ==

== ENCOUNTER 2025-04-22 09:14 | Outpatient (AMB) | payer MEDICARE, SELFPAY ==
--- NOTE | 2025-04-22 09:16 | A.OFFVIS_ITS ---
Vital Signs 04/22/25 09:18 Height 5 ft 11 in Weight 211 lb 10.3 oz BMI 29.5 BP 140/73 H Blood Pressure Location Lt brachial Position Sitting Respiration 64 H Intake Visit Reasons: 3 week FUV. Constipation + GERD. Intake Note: Yovani presents in the office as a 3 week follow up for GERD and Constipation. CC: Much better than before - no concerns. Commissary Representative Required: No Allergies No Known Allergies Allergy (Verified 04/22/25 09:18) HPI HPI 3 week FUV. Constipation + GERD.: Details: LAST VISIT Irritable bowel syndrome Gastroesophageal reflux disease Postprandial diarrhea Pace's esophagus determined by biopsy Plan Patient will stop taking senna and start taking Linzess daily. Increase fluid intake and activity to promote bowel motility. Patient will continue taking omeprazole in the morning and will add famotidine at bedtime. Discussed with patient low FODMAP diet. List of food recommended as well as list of food to avoid given to patient. Patient will return in 2-3 weeks to re-evaluate. He will call our office if he will have any GI concerning symptoms. He is agreeable to this plan and verbalizes understanding of instructions. He was given the opportunity to ask questions and all questions answered. ? Thank you for allowing me to participate in his care New linaclotide (Linzess) 145 mcg PO DAILY 30 caps 2RF Refilled famotidine (Pepcid) 20 mg PO BEDTIME 90 tabs 3RF K21.9 Discontinued sennosides (Natural Senna Laxative) Discontinued Reason: Doctor's Order 17.2 mg (2 x 8.6 mg) PO BEDTIME 90 tabs 3RF constipation K59.00 TODAY'S VISIT: Patient is here today for follow-up. Patient reports that he has been doing quite well. Reports that Linzess is helping and he is able to empty his bowels completely. Patient denies any abdominal pain or discomfort. Denies any diarrhea, mucus in his stools. Denies any melena, hematochezia. Patient reports to have good appetite patient is still taking omeprazole in the morning to help with reflux. Patient noticed that symptoms are better after he is able to move his bowels now. Denies dyspepsia, dysphagia or odynophagia. [facility] Medical History Palpitations SVT (supraventricular tachycardia) PVC's (premature ventricular contractions) Surgical History History of cholecystectomy Hx of endoscopy Hx of colonoscopy S/P ablation of ventricular arrhythmia (~2007) Family History Father CVD (cardiovascular disease) Mother No problems noted. Social History Household Members: Family Alcohol intake: never Patient Tobacco Use Status: Never used Tobacco Review of Systems Const Denies weight gain and Denies weight loss ENT Reports no additional complaints, Denies dysphagia and Denies odynophagia Card Reports no additional complaints Resp Reports no additional complaints GI Reports abdominal pain (Epigastric), Denies belching, Denies melena, Denies bloating, Denies change in bowel habits, Denies dysphagia, Denies excessive flatus, Denies dyspepsia, Denies heartburn, Denies diarrhea, Denies loose stools, Denies nausea, Denies odynophagia and Denies vomiting Reports no additional complaints Musc Reports no additional complaints Neuro Reports no additional complaints Psych Reports no additional complaints Endo Reports no additional complaints Physical Exam Vital Signs: Last Vital Signs Resp 64 H 04/22/25 09:18 BP 140/73 H 04/22/25 09:18 BMI result Body Mass Index 29.5 Const General: healthy appearing and no acute distress Nutritional Appearance: obese Orientation/consciousness: patient oriented x3 Resp Effort & Inspection: normal respiratory effort, able to speak in complete sentences, no tracheal deviation and symmetric chest movement Auscultation: clear to auscultation bilaterally Cardio Rate: regular rate GI Inspection: Yes normal to inspection, No distended and Yes obesity Palpation (GI): Soft to palpation, not firm, nontender and No hepatosplenomegaly present Auscultation: normal bowel sounds General: Yes no CVA tenderness Back/Spine/Pelvis Back: no CVA tenderness Skin General skin exam: elasticity normal, turgor normal and dry skin Neuro General: patient oriented x3 Psych Appearance: grossly normal Mental Status: mental status grossly normal Assessment & Plan Assessment & Plan (1) Irritable bowel syndrome: Code(s): K58.9 - Irritable bowel syndrome, unspecified Qualifiers: Irritable bowel syndrome type: with both diarrhea and constipation Qualified Code(s): K58.2 - Mixed irritable bowel syndrome (2) Gastroesophageal reflux disease: Code(s): K21.9 - Gastro-esophageal reflux disease without esophagitis Qualifiers: Esophagitis presence: esophagitis presence not specified Qualified Code(s): K21.9 - Gastro-esophageal reflux disease without esophagitis (3) Postprandial diarrhea: Code(s): K52.9 - Noninfective gastroenteritis and colitis, unspecified (4) Pace's esophagus determined by biopsy: Code(s): K22.70 - Pace's esophagus without dysplasia Plan Patient will continue taking Linzess daily. Increase fluid intake and activity to promote bowel motility. He was encouraged to increase fiber intake as well. Patient will continue taking omeprazole as he was diagnosed with Pace's via biopsy in May of 2023. Patient reports that he has been compliant and taking the medication every day. Avoid dietary triggers and late night snacking. Staying upright for minimum 3 hours after meals discussed with patient. Patient will return in 4 months. He was encouraged to call our office if he will have any GI concerning symptoms. Patient is agreeable to current plan of care and verbalizes understanding of instructions. He was given the opportunity to ask questions and all questions answered. Thank you for allowing me to participate in his care Medications: Refilled linaclotide (Linzess) 145 mcg PO DAILY 90 caps 2RF Coding Level of Care Code Est Pt Level 4 (73266) Add On Problem Visit Only Diagnoses Irritable bowel syndrome with both constipation and diarrhea K58.2 Irritable bowel syndrome type: with both diarrhea and constipation Gastroesophageal reflux disease, unspecified whether esophagitis present K21.9 Esophagitis presence: esophagitis presence not specified Postprandial diarrhea K52.9 Pace's esophagus determined by biopsy K22.70 Time Spent (min) 35 Comment 25 minutes spent with patient and additional 10 minutes spent reviewing his records
[2025-04-22 09:18] VITALS: BP 140/73; RESP 64; BMI 29.5
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
--- OUTSIDE RECORDS SUMMARY | 2025-04-22 09:45 | XMS_ITS | Encounter Summary ---
Author Organization [employer] Address [address] [facility] 7t [place] [address] Care Team Providers Care Steeple Jack Name Role Phone Name, Amado FONG Primary Care Provider [phone] Reason for Visit * Reason Comments Med Refill Encounter Details Date Type Department Care Team ([facility] Contact Info) Description 04/01/2023 Refill [facility] [address] [place], [place] [phone] Name, MD Amado [address] [place] [address] Heartburn Social History Tobacco Use Types Packs/Day [...] documented as of this encounter Care Teams Steeple Jack Relationship Specialty Start Date End Date Name, MD Amado [address] [place] [address] PCP - General Family Medicine 12/03/16 documented as of this encounter
--- OUTSIDE RECORDS SUMMARY | 2025-04-22 09:46 | XMS_ITS | Encounter Summary ---
Author Organization [employer] [facility] Address [address] [place] [address] 7[address] [place] [address] Care Team Providers Care Outside Property Agent Name Role Phone Name, Amado FONG Primary Care Provider [phone] Encounter Details Date Type Department Care Team ([facility] st Contact Info) Description 04/24/2022 Orders Only [facility] [address] [place], [place] [phone] Priti Anderson LPN Social History Tobacco Use [...] on filedocumented in this encounter Care Teams Outside Property Agent Relationship Specialty Start Date End Date Name, MD Amado [address] [place] [address] PCP - General Family Medicine 12/03/16 documented as of this encounter
--- OUTSIDE RECORDS SUMMARY | 2025-04-22 09:46 | XMS_ITS | Encounter Summary ---
Author Organization [employer] Address [address] [facility] 7t [place] [address] Care Team Providers Care Pediatric Oncologist Name Role Phone Name, Amado FONG Primary Care Provider [phone] Reason for Visit * Reason Onset Date Comments Nurse Triage 02/03/2025 Encounter Details Date Type Department Care Team ([facility] st Contact Info) Description 02/03/2025 Telephone [facility] [address] [place], [place] [phone] Name, MD Amado [address] [place] [address] Nurse Triage Social History Tobacco Use Types [...] Reason: Severe headache Please contact pt at [phone]. (Turkmen Speaker) documented in this encounter Plan of Treatment Not on file documented as of this encounter Visit Diagnoses Not on filedocumented in this encounter Additional Health Concerns Assessment Noted Time PHQ-9 Depression Total Score: 0 01/26/20 24 9:24 AM EDT documented as of this encounter Care Teams Pediatric Oncologist Relationship Specialty Start Date End Date Name, MD Amado [address] [place] [address] PCP - General Family Medicine 12/03/16 documented as of this encounter
--- OUTSIDE RECORDS SUMMARY | 2025-04-22 09:46 | XMS_ITS | Patient Health Record ---
Author Organization [employer] Address [address] [place] [address] Care Team Providers Care Shrimping Boat Captain Name Role Phone Skinny Atkins Jr [phone] Reason For Referral No Information Plan Of Treatment No Information
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
--- OUTSIDE RECORDS SUMMARY | 2025-04-22 09:46 | XMS_ITS | Encounter Summary ---
Author Organization [employer] Address [address] [facility] [address] [place] [address] Care Team Providers Care Manager Strategic Name Role Phone Name, Amado FONG Primary Care Provider [phone] Encounter Details Date Type Department Care Team (Late st Contact Info) Description 10/07/2022 Orders Only [facility] [address] [place] [address] Berenice Tena LPN Social History Tobacco Use [...] Peptide (BNP) (05/22/2023 12:25 AM EST) Pathologist [facility] B Type Natriuretic Peptide 53 <100 pg/mL [facility] Comment:For those patients w ho are being treated with Natrecor(nesiritide, recombinant BNP), BNP testing should beperformed at least two hours post treatment in order toensure that only endogenous levels of BNP are detected. 05/22/2023 12:2 5 AM EST 05/22/2023 12:29 AM EST us Generic External Data Provider LAB BLOOD ORDERAB LES Final Result Performing Organization Address [facility] Co de Phone Number [facility] [address] [place] [address] [phone] * D Dimer High Sensitivity (05/22/2023 12:25 AM EST) [facility] D Dimer High Sensitivity 299 NG/ML [facility] Comment:D-DIMER HS REFERENCE RANGENote: Our [...] ORDERAB LES Final Result Performing Organization Address [facility]/ZIP Co de Phone Number [facility] [address] [place] [phone] * Prothrombin Time-INR (05/22/2023 12:25 AM EST) Pathologist [facility] Prothrombin Time 11.8 11.1 - 13.3 SEC [facility] INTERNATIONAL NORM RATIO 1.0 0.9 - 1.1 [facility] Comment:INTERNATIONAL NORMAL IZED RATIO (INR) [...] ORDERAB LES Final Result Performing Organization Address [facility] Co de Phone Number [facility] [address] [place] [phone] * High Sensitivity Troponin I (05/21/2023 10:52 PM EST) [facility] TROPONIN I HIGH SENSITIVITY <2.7 <3.5 - 35.0 ng/L [facility] Comment:The Fierro high sens itivity Troponin-I results should beused in conjunction with other diagnostic information suchas ECG, clinical observations and information, and patientsymptoms to aid in the diagnosis of [place]. 05/21/2023 10:5 2 PM EST 05/21/2023 10:54 PM EST us Generic External Data Provider LAB BLOOD ORDERAB LES Final Result Performing Organization Address [facility] Co de Phone Number [facility] [address] [place] [phone] * Basic Metabolic Panel (05/21/2023 10:52 PM EST) Pathologist [facility] Sodium 137 135 - 145 mmol/L [facility] Potassium 4.0 3.3 - 5.1 mmol/L [facility] Chloride 105 96 - 108 mmol/L [facility] Carbon Dioxide 24 22 - 29 mmol/L [facility] Anion Gap 12 12 - 20 [facility] Urea Nitrogen (BUN) 14 9 - 16 mg/dL [facility] Creatinine, Serum 1.21 0.5 - 1.4 mg/dL [facility] Creatinine Clr Calc Pharmacy 58.7 [facility] Comment:eGFR (calculated fro m the MDRD study equation) and eCrCl(calculated from the Cockcroft-Gault equation) are based ondifferent parameters and may not yield comparable results.If eCrCl result is absurd, please check patient'sheight/weight. Estimated Glomerular Filt Rate 58 [facility] Comment:NOTE: For -Am erican individuals, multiply the result by 1.210.Chronic Kidney Disease: Estimated GFR < 60 mL/min/1.64c3Hwliul Kidney Disease: Estimated GFR < 15 mL/min/1.73m2 Glucose 108 60 - 115 mg/dL [facility] Calcium 9.9 8.4 - 10.2 mg/dL [facility] 05/21/2023 10:5 2 PM EST 05/21/2023 10:54 PM EST us Generic External Data Provider LAB BLOOD ORDERAB LES Final Result [facility] [address] [place] [phone] * (ABNORMAL) CBC auto differential (05/21/2023 10:52 PM EST) Pathologist [facility] White Blood Count 4.8 4.8 - 10.8 X10*3/uL [facility] Red Blood Count 4.83 4.60 - 5.80 X10*6/uL [facility] Hemoglobin 13.9(L) 14.0 - 18.0 g/dl [facility] Hematocrit 42.1 42.0 - 52.0 % [facility] Mean Corpuscular Volume 87.2 80.0 - 98.0 fL [facility] Mean Corpuscular Hemoglobin 28.8 27.0 - 33.0 pg [facility] Mean Corpuscular HGB Conc 33.0 31.0 - 36.0 g/dl [facility] Red Cell Distribution Width 13.9 11.0 - 16.0 % [facility] Platelet Count 182 160 - 400 X10*3/uL [facility] Mean Platelet Volume 9.5 9.4 - 12.4 fL [facility] Neutrophils Percent Auto 55.9 45 - 73 % [facility] Imm Gran Pct Auto 1.7(H) 0.0 - 0.4 % [facility] Lymphocytes Percent Auto 31.0 20 - 40 % [facility] Monocytes Percent Auto 9.8 2 - 11 % [facility] Eosinophils Percent Auto 1.0 0 - 4 % [facility] Basophils Percent Auto 0.6 0 - 2 % [facility] NRBC Pct Auto 0.0 0.0 - 0.2 /100WBC [facility] Neutrophils Absolute Auto 2.7 2.0 - 8.3 x10*3/uL [facility] Imm Gran Abs Auto 0.08(H) 0.00 - 0.03 X10*3/uL [facility] Lymphocytes Absolute Auto 1.5 1.2 - 4.9 X10*3/uL [facility] Monocytes Absolute Auto 0.5 0.1 - 1.2 X10*3/uL [facility] Eosinophils Absolute Auto 0.1 0.0 - 0.4 X10*3/uL [facility] Basophils Absolute Auto 0.0 0.0 - 0.2 X10*3/uL [facility] NRBC Abs Auto 0.000 0.0 - 0.012 X10*3/uL [facility] 05/21/2023 10:5 2 PM EST 05/21/2023 10:54 PM EST Generic External Data Provider LAB BLOOD ORDERAB LES Final Result Performing Organization Address [facility] Co de Phone Number [facility] [address] [place] [phone] * SARS-CoV-2 RNA, Influenza A/B, and RSV RNA, Ql NAAT (05/11/2023 5:02 PM EST) Influenza A PCR NEGATIVE Negative [facility] Influenza B PCR NEGATIVE Negative [facility] Resp Syncy Virus RNA Qual PCR NEGATIVE Negative [facility] SARS COV2 PCR NEGATIVE Negative [facility] Comment:All test results mus [...] use by authorized laboratories.Testing performed on the [employer] GeneXpert utilizingreal-time RT-PCR.All SARS CoV2 and positive influenza A/B results arereported to [facility]. 05/11/2023 5:02 PM EST 05/11/2023 5:08 PM EST Generic External Data Provider LAB MICROBIOLOGY - GENERAL ORDERABLES Final Result Performing Organization Address [facility] Co de Phone Number [facility] [address] [place] [phone] * Urinalysis w/reflex microscopic (05/11/2023 5:02 PM EST) Color Urine Yellow [facility] Appearance Urine Clear [facility] PH 5.5 5.0 - 9.0 [facility] Glucose Urine UA Negative Negative mg/dL [facility] Urine Blood Negative Negative [facility] Specific [place] - Urine 1.010 1.005 - 1.025 [facility] Urine Protein Negative Neg-Trace mg/dL [facility] Urine Ketones Negative Negative mg/dL [facility] Nitrite Urine Negative Negative [facility] Leukocyte Esterase Urine Negative Negative [facility] 05/11/2023 5:02 PM EST 05/11/2023 5:08 PM EST Narrative [facility] - 05/11/2023 5:27 PM EST [id number], [employer] Generic External Data Provider LAB URINE ORDERAB LES Final Result Performing Organization Address [facility] de Phone Number [facility] [address] [place] [phone] * Strep A Nucleic Acid (05/11/2023 5:02 PM EST) Pathologist [facility] IDEDWIGEW SERIAL# [id number] [facility] Strep A Nucleic Acid Negative Negative [facility] Comment:All test results mus t [...] GENERAL ORDERABLES Final Result Performing Organization Address [facility] Co de Phone Number [facility] [address] [place] [phone] documented in this encounter Visit Diagnoses Not on filedocumented in this encounter Care Teams Manager Strategic Relationship Specialty Start Date End Date Name, MD Amado [address] [place] [phone] PCP - General Family Medicine 12/03/16 documented as of this encounter
--- OUTSIDE RECORDS SUMMARY | 2025-04-22 09:46 | XMS_ITS | Encounter Summary ---
Author Organization [facility] [facility] Address [address] [place] [address] [address] [place] [address] Care Team Providers Care Pulp Maker Name Role Phone Name, Amado FONG Primary Care Provider [phone] Reason for Visit * Reason Comments Med Refill Encounter Details Date Type Department Care Team ([facility] st Contact Info) Description 10/01/2022 Refill [facility] [address] [place], [place] [phone] Name, MD Amado [address] [place] [address] Heartburn Social History Tobacco Use Types Packs/Day [...] Heartburn documented in this encounter Care Teams Pulp Maker Relationship Specialty Start Date End Date Name, MD Amado [address] [place], [place] [phone] PCP - General Family Medicine 12/03/16 documented as of this encounter
== END 2025-04-22 09:32 | disposition home or self-care (01) ==
LOC: HO.HGI 09:15
PROVIDERS: Visit Provider Nurse Practitioner Family
DX: K21.9 Gastro-esophageal reflux disease without esophagitis (principal); K52.9 Noninfective gastroenteritis and colitis, unspecified; K22.70 Barrett's esophagus without dysplasia
CPT/HCPCS: 99214; G2211

== ENCOUNTER → 2025-04-22 09:14 | Outpatient (BNVA) | payer MEDICARE, SELFPAY | PROVIDERS: Visit Provider Nurse Practitioner Family | DX: K58.2 Mixed irritable bowel syndrome (principal); K21.9 Gastro-esophageal reflux disease without esophagitis; K22.70 Barrett's esophagus without dysplasia | CPT/HCPCS: 99212 ==